=== PATIENT | male | born 1950 | race Caucasian/White ===

== ENCOUNTER 2018-01-07 09:31 | Inpatient (IN) ==
[2018-01-07] MEDS ORDERED: IOPAMIDOL 100 ML BOTTLE IV ONE (09:32)
[2018-01-07] MEDS ORDERED: ONDANSETRON 4 MG/2 ML VIAL IV ONE (09:54)
[2018-01-07] MEDS ORDERED: 0.9 % SODIUM CHLORIDE 1,000 ML IV ONE (09:54)
[2018-01-07 10:53] LABS: Basophils # (Auto) 0 K/mcL (0.0-0.3); Basophils % (Auto) 0.1 % (0.0-2.0); Eosinophils # (Auto) 0 K/mcL (0.0-0.7); Eosinophils % (Auto) 0.2 % (0.0-7.0); Granulocytes % (Auto) 85.7 % (38.0-78.0); Lymphocytes # (Auto) 1.2 K/mcL (1.5-4.8); Lymphocytes % (Auto) 8.9 % (15.5-49.0); Mean Cell Volume 94.1 fL (80.0-100.0); Mean Corpuscular HGB Conc 33.9 g/dL (31.0-36.0); Mean Corpuscular Hemoglobin 31.9 pg (26.0-34.0); Monocytes # (Auto) 0.7 K/mcL (0.1-0.9); Monocytes % (Auto) 5.1 % (1.0-12.0); Platelet Count 350 K/mcL (140-440); RBC 4.44 M/mcL (4.50-5.90); Red Cell Distribution Width 12.8 % (11.5-14.5)
--- NOTE | 2018-01-07 11:03 | XRay Report ---
CLINICAL INFORMATION: Cough COMPARISON: 05/08/2017 FINDINGS: Heart size, mediastinum and pulmonary vessels are normal. Lung volumes are elevated and there is minimal wall thickening the central bronchi suggesting bronchitis or asthma. This is unchanged. No infiltrates or effusions. Mild old compression fractures seen throughout the mid thoracic spine - stable. IMPRESSION: Mild chronic bronchitis or asthma. Interval Interpreted and Authenticated by: Vin Celis 01/07/18
[2018-01-07 11:17] LABS: ALT/SGPT 17 U/l (0-40); Albumin 4.1 gm/dL (3.2-5.2); Alkaline Phosphatase 127 U/L (39-117); Amylase 190 U/L (28-100); Blood Urea Nitrogen 12 mg/dl (8-23)
[2018-01-07 11:22] LABS: Lipase 1202 U/L (7-60)
[2018-01-07] MEDS ORDERED: PIPERACILLIN SODIUM/TAZOBACTAM 3.375 GM in DEXTROSE 5% IN WATER 50 ML IV ONE (11:52)
--- NOTE | 2018-01-07 11:53 | Emergency Department Note ---
Abdominal Pain HPI - General Chief Complaint: Abdominal Pain Stated Complaint: Right side/abd pain Time Seen by Provider: 01/07/18 09:45 Source: patient Mode of arrival: ambulatory Limitations: no limitations - History of Present Illness HPI Narrative: 67-year-old male with right-sided abdominal pain is severe and worsening over the last 5 days. He notes some nausea and decreased appetite fact the last 2 days he has not ate anything but an egg sandwich, 1 daily. He also notes decreased weight over the last several months and shortness of breath. Pallor is noted as well. He had a normal bowel movement this morning without melena or hematochezia. Occasional cough. He still has his gallbladder and appendix. He sees Dr. Barry for stage II chronic kidney disease. - Related Data Home Medications Medication Instructions Recorded Confirmed escitalopram 20 mg tablet 20 mg PO QDAY tab 11/07/15 11/05/17 hydrocodone 10 mg-acetaminophen PO .3-4 hours PRN 30 Days #300 tab 05/06/17 325 mg tablet spironolactone 25 mg tablet 25 mg PO QAM 11/05/17 11/05/17 Previous Rx's Medication Instructions Recorded amlodipine 10 mg tablet 10 mg PO QDAY #90 tab 07/24/17 atenolol 100 mg tablet 100 mg PO QDAY #90 tab 07/24/17 atorvastatin 40 mg tablet 40 mg PO QDAY #90 tab 07/24/17 gemfibrozil 600 mg tablet 600 mg PO BID #60 tab 12/16/17 Allergies Allergy/AdvReac Type Severity Reaction Status Date / Time No Known Drug Allergies Allergy Verified 11/05/17 13:20 Review of Systems All systems ED: reviewed and negative except as stated. Abdominal Pain PMH - Past Medical History Attestation: Yes: The following information was validated with the patient. Medical history: Reports: DM (Diet-controlled), hyperlipidemia, hypertension, renal disease, other (Chronic low back pain, gout) Surgical history ED: Reports: orthopedic, other (Knee), tonsillectomy - Social History Smoking status: Current every day smoker Alcohol use: Reports: None (Quit drinking 9 years ago) Drug use: Reports: none Physical Exam No acute distress. Normocephalic atraumatic. Conjunctive are clear sclerae white and nonicteric. No nasal discharge or congestion. Oropharynx is pink and moist. Poor dentition. Neck is supple without lymphadenopathy thyromegaly or carotid bruit. Heart is regular rate and rhythm he does have a 3 out of 6 midsystolic murmur. Lungs are clear to auscultation bilaterally without wheezes rales rhonchi or auditory distress. Abdomen is soft nondistended mildly tender on the entire right side moving towards the right flank even. There is no rigidity or guarding. No McBurney's point tenderness or peritoneal signs. No pedal edema. +2 radial pulse. Alert oriented Limitations: no limitations Course Vital Signs Temperature 98.2 F 01/07/18 09:31 Pulse Rate 120 H 01/07/18 09:31 Respiratory Rate 18 01/07/18 09:31 Blood Pressure 124/72 01/07/18 09:31 Pulse Oximetry (%) 97 01/07/18 09:31 Temperature 98.2 F 01/07/18 09:31 Pulse Rate 93 H 01/07/18 11:01 Respiratory Rate 18 01/07/18 09:31 Blood Pressure 118/75 01/07/18 11:01 Pulse Oximetry (%) 98 01/07/18 11:01 Abdominal Pain - Lab Data Lab results reviewed: Yes I reviewed the patient's lab results. Result diagrams: 01/07/18 10:07 01/07/18 10:07 Lab Results 01/07/18 01/07/18 01/07/18 Range/Units 10:07 10:07 10:07 WBC 13.1 H (4.5-11.0) K/mcL RBC 4.44 L (4.50-5.90) M/mcL Hgb 14.1 (13.5-16.5) g/dL Hct 41.7 (41.0-55.0) % POC Hct 43.0 (41.0-55.0) % MCV 94.1 (80.0-100.0) fL MCH 31.9 (26.0-34.0) pg MCHC 33.9 (31.0-36.0) g/dL RDW 12.8 (11.5-14.5) % Plt Count 350 (140-440) K/mcL MPV 7.5 (7.4-10.4) fL Gran % 85.7 H (38.0-78.0) % Lymph % (Auto) 8.9 L (15.5-49.0) % [place] % (Auto) 5.1 (1.0-12.0) % Eos % (Auto) 0.2 (0.0-7.0) % Baso % (Auto) 0.1 (0.0-2.0) % Gran # 11.2 H (1.8-8.0) K/mcL Lymph # (Auto) 1.2 L (1.5-4.8) K/mcL [place] # (Auto) 0.7 (0.1-0.9) K/mcL Eos # (Auto) 0 (0.0-0.7) K/mcL Baso # (Auto) 0 (0.0-0.3) K/mcL PT (11.9-14.5) sec INR (0.9-1.1) VBG Lactic Acid 0.9 (0.5-2.2) mmol/L POC Sodium 136 (133-145) mmol/L Sodium 136 (133-145) mmol/L POC Potassium 3.5 (3.3-5.1) mmol/L Potassium 3.6 (3.3-5.1) mmol/L POC Chloride 105 (96-108) mmol/L Chloride 97 (96-108) mmol/L Carbon Dioxide 17 L (22-30) mmol/L POC Total CO2 19 L (22-30) mmol/L Anion Gap 22.0 H (8-16) POC BUN 12 (8-23) mg/dl BUN 12 (8-23) mg/dl Creatinine 1.0 (0.7-1.2) mg/dl POC Creatinine 0.9 (0.7-1.2) mg/dl GFR Calculation 77 Glucose 143 H (70-105) mg/dL POC Glucose 143 H (70-105) mg/dL Calcium 9.4 (8.6-10.4) mg/dl POC WB Ioniz Calcium 1.05 L (1.16-1.32) mmol/L Total Bilirubin 0.3 (0.0-1.0) mg/dL AST 20 (0-37) U/l ALT 17 (0-40) U/l Alkaline Phosphatase 127 H (39-117) U/L Total Protein 8.1 (5.9-8.4) gm/dL Albumin 4.1 (3.2-5.2) gm/dL Globulin 4.0 H (2.2-3.7) gm/dL Albumin/Globulin Ratio 1.0 (1.0-2.3) Amylase 190 H (28-100) U/L Lipase 1202 H (7-60) U/L //18 Range/Units 10:07 WBC (4.5-11.0) K/mcL RBC (4.50-5.90) M/mcL Hgb (13.5-16.5) g/dL Hct (41.0-55.0) % POC Hct (41.0-55.0) % MCV (80.0-100.0) fL MCH (26.0-34.0) pg MCHC (31.0-36.0) g/dL RDW (11.5-14.5) % Plt Count (140-440) K/mcL MPV (7.4-10.4) fL Gran % (38.0-78.0) % Lymph % (Auto) (15.5-49.0) % [place] % (Auto) (1.0-12.0) % Eos % (Auto) (0.0-7.0) % Baso % (Auto) (0.0-2.0) % Gran # (1.8-8.0) K/mcL Lymph # (Auto) (1.5-4.8) K/mcL [place] # (Auto) (0.1-0.9) K/mcL Eos # (Auto) (0.0-0.7) K/mcL Baso # (Auto) (0.0-0.3) K/mcL PT 13.2 (11.9-14.5) sec INR 1.0 (0.9-1.1) VBG Lactic Acid (0.5-2.2) mmol/L POC Sodium (133-145) mmol/L Sodium (133-145) mmol/L POC Potassium (3.3-5.1) mmol/L Potassium (3.3-5.1) mmol/L POC Chloride (96-108) mmol/L Chloride (96-108) mmol/L Carbon Dioxide (22-30) mmol/L POC Total CO2 (22-30) mmol/L Anion Gap (8-16) POC BUN (8-23) mg/dl BUN (8-23) mg/dl Creatinine (0.7-1.2) mg/dl POC Creatinine (0.7-1.2) mg/dl GFR Calculation Glucose (70-105) mg/dL POC Glucose (70-105) mg/dL Calcium (8.6-10.4) mg/dl POC WB Ioniz Calcium (1.16-1.32) mmol/L Total Bilirubin (0.0-1.0) mg/dL AST (0-37) U/l ALT (0-40) U/l Alkaline Phosphatase (39-117) U/L Total Protein (5.9-8.4) gm/dL Albumin (3.2-5.2) gm/dL Globulin (2.2-3.7) gm/dL Albumin/Globulin Ratio (1.0-2.3) Amylase (28-100) U/L Lipase (7-60) U/L Urinalysis [id number] dipstick shows moderate blood otherwise normal with specific gravity 1.010. He sees Dr. Hess for hematuria - Radiology Data Radiology results reviewed: Yes I reviewed the patient's radiology results. CT scan of the abdomen pelvis shows gallbladder intact without stones. Also shows retrocecal appendix with surrounding inflammation and dilation. Pancreas looks inflamed as well although it is not clear if this is chronic or acute. That is the patient has appendicitis and pancreatitis Chest x-ray was done for cough. This does not show anything acute but could be compatible with bronchitis per radiology report Disposition Pt seen by CO DIRECTOR/PA only: No Clinical Impression: Acute appendicitis Qualifiers: Acute appendicitis type: unspecified acute appendicitis type Qualified Code(s) : K35.80 - Unspecified acute appendicitis Pancreatitis Qualifiers: Chronicity: acute Pancreatitis type: unspecified pancreatitis type Acute pancreatitis complication: no infection or necrosis Qualified Code(s): K85.90 - Acute pancreatitis without necrosis or infection, unspecified Summary: Patient is initially seen and evaluated and workup ordered with laboratory and CT scan. Treatment ordered with morphine IV fluids Zofran CT scan shows pancreatitis and appendicitis. Start Zosyn. Called Dr. Isidoro Parr, general surgeon, regarding the appendicitis. Advised me to order ultrasound of gallbladder as well. He excepted consult. Then discussed the case with Dr. Amelia Jaeger, hospitalist, she agreed to accept the patient for further care and evaluation of pancreatitis. Disposition: Xfer As Inpt ([facility]) Condition: Serious Referrals: Elizabeth Berger ARNP [Primary Care Provider] - Abril Barry MD [Physician] -
--- NOTE | 2018-01-07 11:54 | Cat Scan Report ---
CLINICAL INFORMATION: Right-sided abdominal pain. COMPARISON: Abdominal MRI: 12/16/2017 and 06/11/[address] from 01/05/2014. TECHNIQUE: Following enteric contrast, 80 cc of Isovue-300 were injected intravenously, and 60 seconds later, 0.625 mm helical slices were obtained from the mid heart through the subtrochanteric regions. Following reconstruction, 2.5 mm sagittal, coronal and axial reformatted images were processed and reviewed at bone, lung and soft tissue windows. Five minutes later, 0.625 mm helical slices were obtained from the mid heart through the kidneys and viewed at soft tissue windows.The exam was performed using radiation dose optimization techniques including, but not limited to, automated exposure control, adjustment of the mA and/or kV according to patient size and use of iterative reconstruction technique. FINDINGS: Lung bases show no abnormality - no effusion. Visualized heart is grossly normal. Images through the abdomen the liver, gallbladder and bile ducts, both adrenal glands, spleen and aorta to be unremarkable. Scattered simple cysts in both kidneys are unchanged. There are multiple (greater than 15) calcifications in the pancreatic head and neck ranging between 2 mm and 11 mm. There is moderate dilatation of [place] duct (8 mm) with smooth tapering proximally.. Mild inflammatory changes are noted within the pancreatic head parenchyma and the adjacent peripancreatic fat.. Small amount of fluid extends into the right anterior pararenal space and paracolic gutter. Pelvic images show prostate, seminal vesicles and urinary bladder to be normal. The appendix is retrocecal in location and has increase in diameter spanning 16 mm. In addition, the appendix wall appears mildly thickened. There is fluid in the periappendiceal fat which is contiguous with the fluid in the right anterior pararenal space. The stomach, small and large bowel are normal. Bone windows show no focal osseous abnormality. IMPRESSION: 1. Acute upon chronic pancreatitis confined to the pancreatic head. Multiple large calcifications in the pancreatic head and neck with moderate chronic dilatation of both [place] and [place] ducts with smooth tapering in the pancreatic head region. Minimal inflammatory changes noted in the pancreatic head parenchyma and peripancreatic fat and small amount of fluid extends into the anterior pararenal space. 2. The appendix is retrocecal in location and is quite high in position position actually located within the right anterior pararenal space. The wall of the appendix appears mildly thickened and the appendix is dilated. This could be sympathetic response to inflammatory fluid in the adjacent anterior pararenal space from pancreatitis. Alternatively, the patient may appendicitis as a second independent pathologic process. Interpreted and Authenticated by: Vin Celis 01/07/18
[2018-01-07] MEDS ORDERED: HYDROmorphone 2 MG/ML VIAL IV PRN (13:52)
[2018-01-07] MEDS ORDERED: ONDANSETRON 4 MG/2 ML VIAL IV PRN (13:52)
--- NOTE | 2018-01-07 13:53 | Ultrasound Report ---
CLINICAL INFORMATION: Right upper quadrant pain. Acute upon chronic pancreatitis COMPARISON: None. FINDINGS: The gallbladder is normal in size and wall thickness - no focal tenderness suggest cholecystitis. No stones identified in the gallbladder. Liver is unremarkable. Common bile duct normal caliber: 6 mm. Multiple calcifications pancreatic head again noted. The pancreatic duct is moderately dilated - 11 mm. There is a small amount of free fluid in the jessica hepatis IMPRESSION: Liver, gallbladder, intrahepatic and common bile ducts are unremarkable. Multiple calcifications in the pancreatic head compatible with chronic pancreatitis. Dilatation of the pancreatic duct which was also noted on CT Small amount of fluid in the jessica hepatis likely reflects acute upon chronic pancreatitis Interpreted and Authenticated by: Vin Celis 01/07/18
[2018-01-07] MEDS: 0.9 % SODIUM CHLORIDE 10 ML SYRINGE IV SCH ×2 (14:00→20:32)
[2018-01-07] MEDS: 0.9 % SODIUM CHLORIDE 1,000 ML IV SCH (14:21)
[2018-01-07] MEDS: NICOTINE 21 MG PATCH TOPICAL SCH (14:21)
[2018-01-07 14:26] LABS: HDL Cholesterol 27 mg/dl (>40); LDL Cholesterol,Calculated 66 mg/dl (SEE CHART)
--- NOTE | 2018-01-07 15:03 | Internal Med History&Physical ---
Medical - H&P: HPI Patient information: Note initiated : 01/07/18 at 3:01 pm Patient: Jalen Merlos a 67 y/o M admitted on 01/07/18 for Rt Sided Abd Pain. History of present illness: Mr. Merlos is a 67 year old M with underlying hypertension with elevated aldosterone, stage III CKD, renal osteodystrophy who describes sudden onset of right lower quadrant pain. He states he was in his usual state of health when five days ago he had sudden onset right lower quadrant pain. He rested and it seemed to improve the following day. Three days ago, he went to [place] to see his new great grandson and states that it was quite severe that day. Moving was difficult, and a hiccup or belch would "almost send him through the roof." He states that it was "one solid pain" that was steady although bending over seemed to help it. He notes there was no increase in pain going over bumps while driving here, however. He did not want to come to the ED as he was concerned about finances. Thought he could call Dr. Barry's office today and that she would see her. He notes that they "just told him to come to the ED." His daughter notes that he looked unwell and was "white as a sheet" three days ago. He describes chills intermittently, denies fevers. Yesterday he felt like something "popped" and then he reports the pain became diffuse and more throughout the abdomen. He describes nausea this AM, but no vomiting. States he hasn't eaten much due to loss of appetite. States he had one egg salad sandwich yesterday and one the day before. He notes he was afraid of getting heartburn because he felt that would make pain worse. ED COURSE: He was evaluated, including labs and imaging. Labs were significant for WBC elevated at 13.1, chemistries with normal electrolytes, BUN and creatinine of 12 and 1.0 respectively (GFR of 77), lipase of 1202, amylase of 190. CT scan was read by Dr. Celis and showed both evidence of acute on chronic pancreatitis and appendicitis. Review of systems: 1) Chronic Right knee pain, limits activity, s/p two surgeries which he reports "didn't help" 2) Cane to ambulate. No history of falls 3) Tinnitus x 2-3 weeks 4) Occasional vertigo 5) Feet feel like he's "walking on golf balls" x 30 years or so 6) Chronic back pain 7) Weight loss - he reports 30# over last year. Notes it started happening when Dr. Barry told him to follow a low fat diet and quit eating fast food. 8) Desires full code; does not have formal advanced directives or POA 9) Some depression - states it has gotten worse since his mother a few years ago. 10) On complete review, all others negative. Medical - H&P: [facility] Medical history: Chronic Kidney Disease Stage III per records Diabetes mellitus (Chronic)- diet controlled. Secondary hyperparathyroidism of renal origin (Chronic) Vitamin D deficiency (Chronic) Tobacco abuse Lumbosacral spondylosis (Acute) Peripheral neuropathy (Acute) Chronic knee pain Migraine Metabolic alkalosis (Acute 01/31/12) Hypokalemia (Acute) Hyposmolality and/or hyponatremia (Acute) Essential hypertension (Chronic) Elevated aldosterone Hyperlipidemia Hypertensive chronic kidney disease Gout Closed femur fracture (Acute) 1961 Elevated alkaline phosphatase level (Chronic) seen by GI Dysmetabolic syndrome X (Acute) Chest pain (Acute 09/11/12) Carpal tunnel syndrome on right (Acute) Alcohol abuse (Acute) Surgical History S/P tonsillectomy (Acute) At age 3 H/O arthroscopic knee surgery (Acute) Pertinent family history: Mother at age 84 of CHF. Previous history of TB Father at age 85, COPD and GI issues Social history: Lives with his dog. Recent of another dog. Sister is local and will take care of pet while he is in hospital. Smokes 4-5 cigars per day and then cigarettes when he is driving or visiting. 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 No other recreational drug use. Functional capacity: uses cane/walker Smoking status: Current every day smoker Have you smoked in the last 12 months: Yes Time spent discussing smoking cessation with patient: 3 to 10 minutes Drug use: none Alcohol use: sober Medical - H&P: Meds Home Medications Medication Instructions Recorded Confirmed Type escitalopram 20 mg tablet 20 mg PO QDAY tab 11/07/15 01/07/18 History hydrocodone 10 mg-acetaminophen 1 each PO .3-4 hours PRN 30 Days 05/06/17 History 325 mg tablet #300 tab amlodipine 10 mg tablet 10 mg PO QDAY #90 tab 07/24/17 01/07/18 Rx atenolol 100 mg tablet 100 mg PO QDAY #90 tab 07/24/17 01/07/18 Rx atorvastatin 40 mg tablet 40 mg PO QDAY #90 tab 07/24/17 01/07/18 Rx spironolactone 25 mg tablet 25 mg PO QAM 11/05/17 01/07/18 History gemfibrozil 600 mg tablet 600 mg PO BID #60 tab 12/16/17 01/07/18 Rx Allergies Allergy/AdvReac Type Severity Reaction Status Date / Time No Known Drug Allergies Allergy Verified 11/05/17 13:20 Medical - H&P: Exam - Constitutional Vitals: Temp Pulse Resp BP Pulse Ox 97.3 F 103 H 16 128/66 100 01/07/18 13:51 01/07/18 13:01 01/07/18 13:59 01/07/18 13:51 01/07/18 13:51 - Other Additional findings: GENERAL: Somewhat frail and thin appearing, older than stated age. Alert, oriented. Speech coherent, fluent, articulate. Thought content appropriate. Respirations unlabored. Cooperative with interview and exam. Daughter present with him in the room. HEENT: Atraumatic, normocephalic; EYES: pupils equal, full range of extraocular movements, no scleral icterus, no injected vessels. EARS: TM's pearly barger and translucent, EAC's without cerumen or trauma, auricles without lesions. OROPHARYNX: Edentulous maxilla; lower incisors blackened with significant decay. Membranes moist. NECK: Trachea midline, no adenopathy, no JVD, bilateral bruit vs radiation of systolic heart murmur, equal both sides and also heard in sternal notch. LUNGS: Clear to bases bilaterally, no wheezes, no crackles, no focally diminished breath sounds. COR: Regular rate and rhythm, 3/6 systolic murmur with radiation into the sternal notch and both carotids. ABDOMEN: Bowel sounds present. Non-distended. Tender from epigastrium to RLQ. No LUQ tenderness noted. No LLQ tenderness. No rebound noted, however. On percussion of CVA, did not produce increase in abdominal pain. Unable to adequately palpate for masses due to tenderness. BACK: No vertebral tenderness. No CVA tenderness. EXTREMITIES: No edema, pulses x4, warm. No palpable cords, no nail bed cyanosis. MUSCULOSKELETAL: Knees without effusion or swelling. No other joint swelling or long bone deformities. NEURO: Sensation decreased bilateral feet. Moved all extremities, bookkeeper receptionist strength equal, no tremor. PSYCHIATRIC: Normal affect, appropriate thought content. Medical - H&P: Reslt - Labs CBC & Chem 7: 01/07/18 10:07 01/07/18 10:07 Labs: Short CBC 01/07/18 Range/Units 10:07 WBC 13.1 H (4.5-11.0) K/mcL Hgb 14.1 (13.5-16.5) g/dL Hct 41.7 (41.0-55.0) % Plt Count 350 (140-440) K/mcL BMP 01/07/18 10:07 Sodium 136 Potassium 3.6 Chloride 97 Carbon Dioxide 17 L BUN 12 Creatinine 1.0 Glucose 143 H Calcium 9.4 Liver Function 01/07/18 Range/Units 10:07 Total Bilirubin 0.3 (0.0-1.0) mg/dL AST 20 (0-37) U/l ALT 17 (0-40) U/l Alkaline Phosphatase 127 H (39-117) U/L Albumin 4.1 (3.2-5.2) gm/dL - Imaging and Cardiology CT scan - abdomen Additional comments: As read by Dr. Celis: FINDINGS: Lung bases show no abnormality - no effusion. Visualized heart is grossly normal. Images through the abdomen the liver, gallbladder and bile ducts, both adrenal glands, spleen and aorta to be unremarkable. Scattered simple cysts in both kidneys are unchanged. There are multiple (greater than 15) calcifications in the pancreatic head and neck ranging between 2 mm and 11 mm. There is moderate dilatation of Santorini duct (8 mm) with smooth tapering proximally.. Mild inflammatory changes are noted within the pancreatic head parenchyma and the adjacent peripancreatic fat.. Small amount of fluid extends into the right anterior pararenal space and paracolic gutter. Pelvic images show prostate, seminal vesicles and urinary bladder to be normal. The appendix is retrocecal in location and has increase in diameter spanning 16 mm. In addition, the appendix wall appears mildly thickened. There is fluid in the periappendiceal fat which is contiguous with the fluid in the right anterior pararenal space. The stomach, small and large bowel are normal. Bone windows show no focal osseous abnormality. IMPRESSION: 1. Acute upon chronic pancreatitis confined to the pancreatic head. Multiple large calcifications in the pancreatic head and neck with moderate chronic dilatation of both Santorini and Wirsungs ducts with smooth tapering in the pancreatic head region. Minimal inflammatory changes noted in the pancreatic head parenchyma and peripancreatic fat and small amount of fluid extends into the anterior pararenal space. 2. The appendix is retrocecal in location and is quite high in position position actually located within the right anterior pararenal space. The wall of the appendix appears mildly thickened and the appendix is dilated. This could be sympathetic response to inflammatory fluid in the adjacent anterior pararenal space from pancreatitis. Alternatively, the patient may appendicitis as a second independent pathologic process. Medical - H&P: A/P - Narrative A/P Narrative: 1) Abdominal pain - may have concomitant appendicitis and pancreatitis. His lipase is only modestly elevated, and history is not particularly suggestive of pancreatitis. His gall bladder ultrasound is unremarkable, lipid panel unremarkable, glucose nearly normal. Some medications may influence development of pancreatitis or falsely elevate the lipase - either is possible. He does not use alcohol anymore, but clearly has evidence of previous pancreatic injury and may have acute worsening. He does note the pain may get worse with eating, which would be more consistent with a gallbladder or pancreatic history than appendicitis. White count mildly elevated, no fever noted. With either diagnosis, appropriate to be NPO, cover with pain medications, obtain surgical consult. Will plan on medicine admission with surgical consult. No antibiotics at present. 2) Systolic heart murmur: suspect possible aortic stenosis. No previous echocardiogram noted in records, and patient denies to me ever having one. Last visit with Dr. Barry does not document a murmur. There is no evidence of decompensation, will obtain an echocardiogram to evaluate degree of stenosis. 3) Chronic kidney disease - records indicate related to hypertensive nephropathy. Elevated aldosterone. On multiple medications with good control reflected in the ED. BUN and creatinine today are normal with an estimated GFR of 77; will continue good blood pressure control, will not need renal adjustments for medications. 4) History of diabetes, type 2 - diet controlled (in fact, patient denied to me that he even had diabetes, records suggest otherwise) Last hgb A1C on labs here was in 2016 and was 6.0; most recent noted in Dr. Barry's note is 6.8 Will check fingersticks, cover if necessary with insulin. 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 No worsening, no sign of peripheral ulcerations. 6) h/o alcohol abuse and dependence - sober x 10 years. I believe his compliance with sobriety, no concern with EtOH withdrawal syndrome. 7) Tobacco dependence - discussed need to quit. Suggested he will not be able to smoke in hospital and it is an ideal time to initiate cessation. Nicotine patch ordered. He notes Dr. Barry has told him to quit as well; I reviewed the reasons and spent approximately five minutes discussing cessation. He is interested in the patch, and notes he has a friend who reported to him it worked for her. Will order further cessation education. 8) History of renal osteodystrophy - ionized calcium on low side today, alk phos stable. I wonder if this process would affect pancreatic calcification similar to calcification of vasculature. Plan: Inpatient admission NPO IVF - NS at 100 Parenteral pain control Antihypertensives with sips of water Surgery consult Daily labs Lipid panel added to blood drawn earlier Hold gemfibrizol and statin for now Nicotine patch Case management referral Echocardiogram Fingersticks bid - will cover with sliding scale only if >200 Full code SCD's for VTE prophylaxis IV famotidine for PUD prophylaxis IV zofran prn Other problems addressed as they arise. Medical - H&P: Qual - Stroke Symptom Onset Unknown: No - VTE Deep Vein Thrombosis/Pulmonary Embolism Present on Admission: No
--- NOTE | 2018-01-07 15:17 | General Surgery Consult Note ---
History of Present Illness Patient information: Note initiated : 01/07/18 at 3:14 pm Service Date, if different from initiated Date: [] Patient: Jalen Merlos 67 y/o M admitted on 01/07/18 for Rt Sided Abd Pain. Chief Complaint: [] Reason for consult: abdominal pain Requesting physician: Amelia Jaeger History of present illness: 67-year-old male admitted for evaluation of abdominal pain with probable appendicitis. The patient states that on evening he developed pain in his right flank. This pain increased in severity. It was made worse whenever he would drink water. He states that he felt better on Saturday but then his pain became worse and he developed nausea but no vomiting. He was having pain with each breath. Most of the pain was subcostal in the high in the right upper quadrant. He also had CVA tenderness. Because of continued symptoms he was seen in the emergency room where was noted that on CT exam he had a dilated thickened appendix with periappendiceal fluid. The appendix is in the retrocecal position high in the right upper quadrant. He also has chronic pancreatitis with dilated pancreatic ducts. His amylase and lipase were mildly elevated. Based on history and radiologic findings is felt that the patient has appendicitis in the retrocecal position and will need to have laparoscopy with appendectomy. He is counseled for this and will undergo the procedure tomorrow morning. Review of Systems - Constitutional anorexia, weight loss (30 pound weight loss 1 year) - EENT Nose, mouth and throat: dry mouth, headache(s) - Cardiovascular chest pain ( chest pain with deep inspiration aggravating pain in the right upper quadrant), dyspnea on exertion, radiating pain, no chest pain with activity - Respiratory dyspnea on exertion, pain on inspirtation, no wheezing, no snoring, no stridor, no chest congestion - Gastrointestinal abdominal pain, cramping, nausea, no heartburn, no loose stools - Musculoskeletal no abnormal gait, no numbness, no stiffness - Integumentary no change in pigmentation, no new lesions, no pruritus, no rash - Neurological abnormal hearing, tremor(s), no headache(s) - Psychiatric anxiety, depression - Endocrine no excessive sweating, no fatigue, no heat intolerance - Hematologic/Lymphatic lymphadenopathy, no easy bleeding, no easy bruising - Allergic/Immunologic no tongue swelling, no throat swelling, no uticaria, no wheezing, no lip swelling Past History Past medical history: Chronic kidney disease Diabetes mellitus Hypertension Low back pain Past surgical history: Left knee arthroscopy Past family history: Coronary artery disease Diabetes mellitus Chronic obstructive lung disease Past social history: Smokes 1 pack of cigarettes per day Long history of alcohol abuse but stopped 9 years ago History of drug abuse Medications and Allergies Home Medications Medication Instructions Recorded Confirmed Type escitalopram 20 mg tablet 20 mg PO QDAY tab 11/07/15 01/07/18 History hydrocodone 10 mg-acetaminophen 1 each PO .3-4 hours PRN 30 Days 05/06/17 History 325 mg tablet #300 tab amlodipine 10 mg tablet 10 mg PO QDAY #90 tab 07/24/17 01/07/18 Rx atenolol 100 mg tablet 100 mg PO QDAY #90 tab 07/24/17 01/07/18 Rx atorvastatin 40 mg tablet 40 mg PO QDAY #90 tab 07/24/17 01/07/18 Rx spironolactone 25 mg tablet 25 mg PO QAM 11/05/17 01/07/18 History gemfibrozil 600 mg tablet 600 mg PO BID #60 tab 12/16/17 01/07/18 Rx Allergies Allergy/AdvReac Type Severity Reaction Status Date / Time No Known Drug Allergies Allergy Verified 11/05/17 13:20 Exam Temp Pulse Resp BP Pulse Ox 97.3 F 103 H 16 128/66 100 01/07/18 13:51 01/07/18 13:01 01/07/18 13:59 01/07/18 13:51 01/07/18 13:51 - General physical appearance well developed, well nourished, no distress - Eyes PERRL, normal ocular movement - ENT normal pinna, normal nares, normal mucosa, no hearing loss, no congestion - Head Head exam IM: Present: atraumatic, normal inspection, normocephalic - Neck no masses, no bruits, trachea midline, no lymphadectomy, no venous distension - Cardiovascular Cardiovascular exam IM: Present: normal rate and rhythm, RRR, +S1, +S2. Absent : JVD, tachycardia - Respiratory normal expansion, normal respiratory effort, clear to percussion, clear to auscultation - Abdomen Abdomen: Present: soft, tender (tender right flank extending to right cva region ), bowel sounds Hernia: Present: none - Genitourinary Present: normal penis with no external lesions - Integumentary Present: no rash, no growths, no abnormal pigmentation - Neurologic Present: normal coordination, normal sensation - Musculoskeletal Present: normal gait, normal posture - Psychiatric Present: oriented to time, oriented to person, oriented to place, speech is normal, memory intact Results - Labs 01/08/18 03:50 01/08/18 03:50 Abnormal lab results 01/07/18 01/07/18 01/07/18 Range/Units 10:07 10:07 10:07 WBC 13.1 H (4.5-11.0) K/mcL RBC 4.44 L (4.50-5.90) M/mcL Gran % 85.7 H (38.0-78.0) % Lymph % (Auto) 8.9 L (15.5-49.0) % Gran # 11.2 H (1.8-8.0) K/mcL Lymph # (Auto) 1.2 L (1.5-4.8) K/mcL Carbon Dioxide 17 L (22-30) mmol/L POC Total CO2 19 L (22-30) mmol/L Anion Gap 22.0 H (8-16) Glucose 143 H (70-105) mg/dL POC Glucose 143 H (70-105) mg/dL POC WB Ioniz Calcium 1.05 L (1.16-1.32) mmol/L Alkaline Phosphatase 127 H (39-117) U/L Globulin 4.0 H (2.2-3.7) gm/dL Triglycerides 156 H (<150) mg/dl HDL Cholesterol 27 L (>40) mg/dl Amylase 190 H (28-100) U/L Lipase 1202 H (7-60) U/L Diabetes panel 01/07/18 01/07/18 Range/Units 10:07 10:07 Sodium 136 (133-145) mmol/L Potassium 3.6 (3.3-5.1) mmol/L Chloride 97 (96-108) mmol/L Carbon Dioxide 17 L (22-30) mmol/L BUN 12 (8-23) mg/dl Creatinine 1.0 (0.7-1.2) mg/dl Glucose 143 H (70-105) mg/dL Calcium 9.4 (8.6-10.4) mg/dl AST 20 (0-37) U/l ALT 17 (0-40) U/l Alkaline Phosphatase 127 H (39-117) U/L Total Protein 8.1 (5.9-8.4) gm/dL Albumin 4.1 (3.2-5.2) gm/dL Triglycerides 156 H (<150) mg/dl HDL Cholesterol 27 L (>40) mg/dl Calcium panel 01/07/18 Range/Units 10:07 Calcium 9.4 (8.6-10.4) mg/dl Albumin 4.1 (3.2-5.2) gm/dL Pituitary panel 01/07/18 Range/Units 10:07 Sodium 136 (133-145) mmol/L Potassium 3.6 (3.3-5.1) mmol/L Chloride 97 (96-108) mmol/L Carbon Dioxide 17 L (22-30) mmol/L BUN 12 (8-23) mg/dl Creatinine 1.0 (0.7-1.2) mg/dl Glucose 143 H (70-105) mg/dL Calcium 9.4 (8.6-10.4) mg/dl Adrenal panel 01/07/18 Range/Units 10:07 Sodium 136 (133-145) mmol/L Potassium 3.6 (3.3-5.1) mmol/L Chloride 97 (96-108) mmol/L Carbon Dioxide 17 L (22-30) mmol/L BUN 12 (8-23) mg/dl Creatinine 1.0 (0.7-1.2) mg/dl Glucose 143 H (70-105) mg/dL Calcium 9.4 (8.6-10.4) mg/dl Total Bilirubin 0.3 (0.0-1.0) mg/dL AST 20 (0-37) U/l ALT 17 (0-40) U/l Alkaline Phosphatase 127 H (39-117) U/L Total Protein 8.1 (5.9-8.4) gm/dL Albumin 4.1 (3.2-5.2) gm/dL All other labs normal. Assessment and Plan (1) Acute appendicitis antibiotics tonight schedule for surgery in a.m. Status: Acute Qualifiers: Acute appendicitis type: unspecified acute appendicitis type Qualified Code (s): K35.80 - Unspecified acute appendicitis (2) Pancreatitis check serial levels daily; not a contraindication to surgery Status: Acute Qualifiers: Chronicity: acute Pancreatitis type: unspecified pancreatitis type Acute pancreatitis complication: no infection or necrosis Qualified Code(s): K85.90 - Acute pancreatitis without necrosis or infection, unspecified (3) Diabetes mellitus Status: Chronic Comment: watches his diet most recent HbA1c was 6.8 (4) Chronic kidney disease, stage III (moderate) Status: Chronic
[2018-01-07] MEDS: PIPERACILLIN SODIUM/TAZOBACTAM 4.5 GM in DEXTROSE 5% IN WATER 50 ML IV SCH (20:12)
[2018-01-07] MEDS: FAMOTIDINE/PF 20 MG/2 ML VIAL IV SCH (20:31)
[2018-01-08] MEDS: 0.9 % SODIUM CHLORIDE 1,000 ML IV SCH ×4 (00:21→19:17)
[2018-01-08] MEDS: PIPERACILLIN SODIUM/TAZOBACTAM 4.5 GM in DEXTROSE 5% IN WATER 50 ML IV SCH ×4 (00:21→21:28)
[2018-01-08 05:29] LABS: Basophils # (Auto) 0 K/mcL (0.0-0.3); Basophils % (Auto) 0.1 % (0.0-2.0); Eosinophils # (Auto) 0.3 K/mcL (0.0-0.7); Eosinophils % (Auto) 2.9 % (0.0-7.0); Granulocytes % (Auto) 75.3 % (38.0-78.0); Lymphocytes # (Auto) 1.4 K/mcL (1.5-4.8); Mean Cell Volume 94.2 fL (80.0-100.0); Mean Corpuscular HGB Conc 34.7 g/dL (31.0-36.0); Mean Corpuscular Hemoglobin 32.7 pg (26.0-34.0); Monocytes # (Auto) 0.6 K/mcL (0.1-0.9); Monocytes % (Auto) 6.7 % (1.0-12.0); Platelet Count 334 K/mcL (140-440); RBC 3.81 M/mcL (4.50-5.90); Red Cell Distribution Width 13.1 % (11.5-14.5)
[2018-01-08 06:00] LABS: ALT/SGPT 13 U/l (0-40); Albumin 3.4 gm/dL (3.2-5.2); Albumin/Globulin Ratio 1.1 (1.0-2.3); Alkaline Phosphatase 99 U/L (39-117); Bilirubin,Direct < 0.2 mg/dL (0.0-0.3); Blood Urea Nitrogen 6 mg/dl (8-23); Gamma Glutamyl Transpeptidase 38 U/L (8-61); Lipase 421 U/L (7-60); Uric Acid 3.1 mg/dL (2.5-8.0)
[2018-01-08] MEDS: 0.9 % SODIUM CHLORIDE 10 ML SYRINGE IV SCH (06:11)
[2018-01-08] MEDS ORDERED: POTASSIUM PHOSPHATE 40 MEQ in DEXTROSE 5% IN WATER 500 ML IV ONE ×2 (06:34→07:27)
[2018-01-08 07:51] LABS: Appearance,Urine CLEAR; Bacteria,Urine 0 /hpf (0); Bilirubin,Urine NEG (NEG); Color,Urine STRAW; Glucose,Urine (UA) NEGATIVE (NEG); Leukocyte Esterase,Urine NEG /uL (NEG); Mucus,Urine FEW /hpf (0); Protein,Urine NEG (NEG); Specific Gravity,Urine 1.017 (1.000-1.035); Urine Blood 0.03 mg/dL (<0.03); Urine RBC 5 /hpf (0-1); Urine Squamous Epithelial Cell 0 /hpf (0-4); Urine WBC < 1 /hpf (0-4); Urobilinogen,Urine NEG (NEG)
[2018-01-08] MEDS ORDERED: ATENOLOL 50 MG TABLET PO SCH (09:00)
[2018-01-08] MEDS ORDERED: PROPOFOL 200 MG/20 ML VIAL IV ONE (09:00)
[2018-01-08] MEDS ORDERED: SUCCINYLCHOLINE 20 MG/ML ML IV ONE (09:00)
[2018-01-08] MEDS ORDERED: LIDOCAINE HCL/PF 100 MG/5 ML SYRINGE IV ONE (09:00)
[2018-01-08] MEDS ORDERED: ESCITALOPRAM 20 MG TABLET PO SCH (09:00)
[2018-01-08] MEDS ORDERED: DEXAMETHASONE 10 MG/ML VIAL IV ONE (09:00)
[2018-01-08] MEDS ORDERED: ePHEDrine 50 MG/ML AMPUL IV ONE (09:00)
[2018-01-08] MEDS ORDERED: SPIRONOLACTONE 25 MG TABLET PO SCH (09:00)
[2018-01-08] MEDS ORDERED: ONDANSETRON 4 MG/2 ML VIAL IV ONE (09:00)
[2018-01-08] MEDS ORDERED: MIDAZOLAM 5 MG/5 ML VIAL IV ONE (09:00)
[2018-01-08] MEDS ORDERED: NEOSTIGMINE 1 MG/ML VIAL IV ONE (09:00)
[2018-01-08] MEDS ORDERED: ROCURONIUM 10 MG/ML ML IV ONE (09:00)
[2018-01-08] MEDS ORDERED: GLYCOPYRROLATE 0.2 MG/ML VIAL IV ONE (09:00)
[2018-01-08] MEDS ORDERED: fentaNYL 100 MCG/2 ML VIAL IV ONE ×2 (09:00→12:38)
[2018-01-08] MEDS ORDERED: amLODIPine 10 MG TABLET PO SCH (09:00)
[2018-01-08] MEDS ORDERED: LACTATED RINGERS 250 ML IV PRN (09:17)
[2018-01-08] MEDS ORDERED: MEPERIDINE 25 MG/ML SYRINGE IV PRN (09:17)
[2018-01-08] MEDS ORDERED: IPRATROPIUM/ALBUTEROL 3 ML AMPUL.NEB NEB PRN (09:17)
[2018-01-08] MEDS ORDERED: ACETAMINOPHEN 1,000 MG/100 ML BOTTLE IV ONE (09:17)
[2018-01-08] MEDS ORDERED: PROMETHAZINE 25 MG/ML VIAL IV PRN (09:17)
[2018-01-08] MEDS ORDERED: FLUMAZENIL 0.1 MG/ML ML IV PRN (09:17)
[2018-01-08] MEDS ORDERED: ONDANSETRON 4 MG/2 ML VIAL IV PRN ×2 (09:17→11:11)
[2018-01-08] MEDS ORDERED: diphenhydrAMINE 50 MG/ML VIAL IV PRN (09:17)
[2018-01-08] MEDS ORDERED: NALOXONE HCL 0.4 MG/ML VIAL IV PRN (09:17)
[2018-01-08] MEDS: FAMOTIDINE/PF 20 MG/2 ML VIAL IV SCH ×2 (09:19→21:27)
[2018-01-08] MEDS ORDERED: LACTATED RINGERS 1,000 ML IV SCH (09:30)
--- NOTE | 2018-01-08 10:13 | Brief Operative Note ---
Date of procedure: 01/08/18 Pre-op diagnosis: acute appendicitis Post-op diagnosis: other (retrocecal acute appendicitis) Procedure: laparoscopic appendectomy Grafts/Implants: No (zahra x1) Anesthesia: GETA Findings: retrocecal appendix with acute inflammation and dense adhesion to posterior wall of ascending colon extending to hepatic flexure Complications: none Surgeon: Pauline Parr Estimated blood loss (cc): 25 Specimens Removed/Pathology: other (appendix) Condition: stable Disposition: PACU
[2018-01-08] MEDS: fentaNYL 100 MCG/2 ML VIAL IV PRN ×3 (10:32→10:50)
--- NOTE | 2018-01-08 12:31 | Operative Note ---
DATE OF OPERATION: 01/08/2018 PREOPERATIVE DIAGNOSIS: Acute appendicitis. POSTOPERATIVE DIAGNOSIS: Retrocecal acute appendicitis. PROCEDURE: Laparoscopic appendectomy. SURGEON: Pauline Parr MD FINDINGS: Retrocecal appendix with acute inflammation and dense adhesions to the posterior wall of the ascending colon, extending to the hepatic flexure. DESCRIPTION OF PROCEDURE: Under general anesthesia, the patient's abdomen was prepped and draped in a sterile field. A time-out procedure was carried out as per protocol. A supraumbilical midline incision was made and Veress needle was inserted uneventfully. The abdomen was insufflated with 2.5 liters of CO2. A 12 mm port was placed. Laparoscope was placed. The inflammation was seen up along the ascending colon along the right border. A suprapubic midline incision was made longterm between the symphysis and the umbilicus. A 12 mm port was placed in the left lower quadrant close to the midline. The patient's head was elevated and he was rotated to the left. The base of the cecum was explored and the appendix was noted. A window was made in the mesoappendix and appendiceal base was transected using GI stapler. The mesocolon was then dissected and serially clipped and divided traveling up the posterolateral wall of the ascending colon. At the hepatic flexure there was a dense inflammation in the tip and the appendix had to be dissected away from the wall of the colon. The tissue was clamped close to the appendix and transected. This continued out to the tip. Copious irrigation was carried out. The appendix was placed in an EndoCatch device and retrieved. A 10 flat Juan Pablo drain was placed along the lateral gutter extending up to the hepatic flexure. It was brought out through the more lateral incision. There was no active bleeding. CO2 was allowed to escape from the abdomen, and the ports were removed. Fascia of the umbilicus was closed with 0 Vicryl. Skin incisions were closed with gloria. The patient tolerated the procedure well. The drain was secured with 2-0 nylon. Tegaderm dressings were placed. The patient was awakened, transferred to a bed and taken to the postanesthetic care unit in stable, satisfactory condition. LCS:andrae Job ID: [id number] Doc ID: [id number] Pauline Parr M.D.
--- NOTE | 2018-01-08 13:09 | Internal Med Progress Note ---
Medical - PN: Subj Patient information: Note initiated : 01/08/18 at 1:04 pm Patient: Jalen Merlos 67 y/o M admitted on 01/07/18 for Rt Sided Abd Pain/ Pancreatitis, Appendicitis. Interval history: When patient was seen this AM, he reported improved pain, although he was still uncomfortable. No vomiting, no sweats, chills, or fevers. He has not had any desire for cigarettes except right when he woke this AM. Feels like the patch is effective. Wants to know if he could "have a few" when he leaves. Surgery planned for mid-morning. I reviewed Dr. 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 After returning to floor from PACU, patient did complain of more pain. I gave a one time dose of IV Fentanyl. Will plan on discussing time frame for d/c of antibiotics with Dr. Parr. No respiratory issues noted. - Constitutional Vitals: Vital Signs Temp Pulse Resp BP Pulse Ox 97.5 F 74 16 114/59 98 01/08/18 10:57 01/08/18 10:57 01/08/18 10:57 01/08/18 10:57 01/08/18 11:12 Period Temp Pulse Resp BP Sys/Longo Pulse Ox Last 24 Hr 97.3 F-98.8 F 73-109 16-24 97-158/51-81 96-100 Intake and Output 01/07/18 01/08/18 01/08/18 21:59 05:59 13:59 Intake Total 240 / 240 1300 / 1300 1700 / 1700 Output Total 395 / 395 875 / 875 100 / 100 Balance -155 / -155 425 / 425 1600 / 1600 Weight 140 lb Intake & Output: Intake & Output 01/07/18 01/08/18 01/08/18 21:59 05:59 13:59 Intake Total 240 / 240 1300 / 1300 1700 / 1700 Output Total 395 / 395 875 / 875 100 / 100 Balance -155 / -155 425 / 425 1600 / 1600 Weight 140 lb Intake: IV 50 / 50 1050 / 1050 1700 / 1700 Sodium Chloride 0.9% 1,000 ml @ 1000 / 1000 100 mls/hr IV .Q10H ON LICENSE OF [facility] Rx#: [id number] Zosyn 4.5 gm In Dextrose 5% in 50 / 50 50 / 50 Water 50 ml @ 100 mls/hr IV Q8H ON LICENSE OF [facility] Rx#:[id number] Oral 70 / 70 250 / 250 Other 120 / 120 Output: Drainage 45 / 45 Right Lower INO Drain 45 / 45 Void Amount 350 / 350 875 / 875 Estimated Blood Loss 100 / 100 Other: Meal snack/jello Feeding Ability Independent - Additional findings Additional findings: GENERAL: Appears fairly comfortable when first seen this morning; after surgery , eating ice, comfortable. Alert, oriented. Speech coherent, fluent, articulate. Thought content appropriate. Respirations unlabored. HEENT: OROPHARYNX: Edentulous maxilla; lower incisors blackened with significant decay. Membranes moist. NECK: Trachea midline, no adenopathy, no JVD, bilateral bruit vs radiation of systolic heart murmur, equal both sides and also heard in sternal notch. LUNGS: Clear to bases bilaterally, no wheezes, no crackles, no focally diminished breath sounds. COR: Regular rate and rhythm, 3/6 systolic murmur with radiation into the sternal notch and both carotids. ABDOMEN: Bowel sounds sparse (seen pre-op). Non-distended. Improved tenderness, isolated only to right lower quadrant. No guarding or rebound. EXTREMITIES: No edema, pulses x4, warm. No palpable cords, no nail bed cyanosis. Medical - PN: Obj Da - Labs CBC & Chem 7: 01/08/18 03:50 01/08/18 03:50 Labs: Abnormal Lab Results 01/08/18 01/08/18 01/08/18 05:40 03:50 03:50 WBC RBC 3.81 L Hgb 12.4 L Hct 35.9 L MPV 7.3 L Gran % Lymph % (Auto) 15.0 L Gran # Lymph # (Auto) 1.4 L APTT 42 H Potassium Carbon Dioxide POC Total CO2 Anion Gap BUN Glucose POC Glucose Calcium POC WB Ioniz Calcium Phosphorus Alkaline Phosphatase Globulin Triglycerides HDL Cholesterol Amylase Lipase Urine Ketones 20 A Urine Occult Blood 0.03 A Urine RBC 5 H 01/08/18 01/07/18 01/07/18 03:50 10:07 10:07 WBC RBC Hgb Hct MPV Gran % Lymph % (Auto) Gran # Lymph # (Auto) APTT Potassium 3.2 L Carbon Dioxide 18 L 17 L POC Total CO2 19 L Anion Gap 18.0 H 22.0 H BUN 6 L Glucose 112 H 143 H POC Glucose 143 H Calcium 8.5 L POC WB Ioniz Calcium 1.05 L Phosphorus 2.6 L Alkaline Phosphatase 127 H Globulin 4.0 H Triglycerides 156 H HDL Cholesterol 27 L Amylase 190 H Lipase 421 H 1202 H Urine Ketones Urine Occult Blood Urine RBC 01/07/18 10:07 WBC 13.1 H RBC 4.44 L Hgb Hct MPV Gran % 85.7 H Lymph % (Auto) 8.9 L Gran # 11.2 H Lymph # (Auto) 1.2 L APTT Potassium Carbon Dioxide POC Total CO2 Anion Gap BUN Glucose POC Glucose Calcium POC WB Ioniz Calcium Phosphorus Alkaline Phosphatase Globulin Triglycerides HDL Cholesterol Amylase Lipase Urine Ketones Urine Occult Blood Urine RBC Meds: Medications Amlodipine Besylate (Norvasc) 10 mg PO QDAY [facility] Atenolol (Tenormin) 100 mg PO DAILY [facility] Escitalopram Oxalate (Lexapro) 20 mg PO QDAY [facility] Famotidine (Pepcid) 20 mg IV Q12 [facility] Sodium Chloride (Sodium Chloride 0.9%) 1,000 mls @ 100 mls/hr IV .Q10H [facility] Piperacillin Sod/Tazobactam (Sod 4.5 gm/ Dextrose) 50 mls @ 100 mls/hr IV Q8H [facility] Acetaminophen (Ofirmev) 1,000 mg in 100 mls @ 200 mls/hr IV Q6HP PRN PRN Reason: Pain Morphine Sulfate (Morphine) 2 mg IV Q2HP PRN PRN Reason: PAIN LEVEL > 6 Morphine Sulfate (Morphine) 5 mg IV Q4HP PRN PRN Reason: Pain Last Admin: 01/08/18 12:59 Dose: 5 mg Nicotine (Nicoderm) 21 mg TOPICAL DAILY@1000 [facility] Ondansetron HCl (Zofran) 4 mg IV Q6HP PRN PRN Reason: Nausea And Vomiting Spironolactone (Aldactone) 25 mg PO QAM ON [facility] OF [facility] Medical - PN: A/P - Time Spent With Patient Total time spent is greater than 50% in coordination of care (as documented) at patient's floor/unit and/or counseling patient: 15 - 24 minutes - Narrative A/P Narrative: 1) Appendicitis - lap appy planned by Dr. Parr today. On Zosyn, whether he needs to stay on it will depend on surgical findings - if no diffuse peritonitis , suspect could discontinue. Will discuss with Dr. Parr. 2) Elevated lipase - doubt significant primary pancreatitis. Has come down to 400 today, and exam is unremarkable except for RLQ tenderness. Will recheck lipase in the AM. 3) Hypokalemia - had been on IVF with NS overnight. Will replace with KPhos since phosphorus also low. Recheck in AM 4) Tobacco dependence - happy with patch and much more interested in cessation. On second visit, discussed with daughter re cleaning his apartment for smoking odor - upholstery, drapes, clean sheets, while he is in the hospital. 5) Disposition - anticipate return home, likely tomorrow, perhaps later today. Still requiring significant IV pain medications at present. Medical - PN: Qual - Stroke Symptom Onset Unknown: No - VTE Deep Vein Thrombosis/Pulmonary Embolism Present on Admission: No
[2018-01-08] MEDS: ACETAMINOPHEN 1,000 MG/100 ML BOTTLE IV PRN (17:49)
[2018-01-08] MEDS: NICOTINE 21 MG PATCH TOPICAL SCH (19:20)
[2018-01-08] MEDS ORDERED: ALPRAZolam 0.5 MG TABLET PO PRN (23:02)
[2018-01-08] MEDS ORDERED: ALPRAZolam 0.5 MG TABLET ONE (23:06)
[2018-01-09 05:00] LABS: Basophils # (Auto) 0 K/mcL (0.0-0.3); Basophils % (Auto) 0 % (0.0-2.0); Eosinophils # (Auto) 0.1 K/mcL (0.0-0.7); Eosinophils % (Auto) 0.7 % (0.0-7.0); Granulocytes % (Auto) 86.6 % (38.0-78.0); Lymphocytes # (Auto) 1.2 K/mcL (1.5-4.8); Mean Corpuscular HGB Conc 33.7 g/dL (31.0-36.0); Monocytes # (Auto) 0.7 K/mcL (0.1-0.9); Monocytes % (Auto) 4.7 % (1.0-12.0); Platelet Count 335 K/mcL (140-440); RBC 3.67 M/mcL (4.50-5.90); Red Cell Distribution Width 12.9 % (11.5-14.5)
[2018-01-09] MEDS: 0.9 % SODIUM CHLORIDE 1,000 ML IV SCH ×3 (05:24→18:00)
[2018-01-09 05:36] LABS: ALT/SGPT 14 U/l (0-40); Albumin 3.5 gm/dL (3.2-5.2); Albumin/Globulin Ratio 1.2 (1.0-2.3); Alkaline Phosphatase 88 U/L (39-117); Bilirubin,Direct < 0.2 mg/dL (0.0-0.3); Blood Urea Nitrogen 5 mg/dl (8-23); Gamma Glutamyl Transpeptidase 38 U/L (8-61); Lipase 51 U/L (7-60); Uric Acid 2.4 mg/dL (2.5-8.0)
[2018-01-09] MEDS: PIPERACILLIN SODIUM/TAZOBACTAM 4.5 GM in DEXTROSE 5% IN WATER 50 ML IV SCH ×3 (05:57→21:56)
[2018-01-09] MEDS: ACETAMINOPHEN 1,000 MG/100 ML BOTTLE IV PRN ×3 (08:05→23:03)
[2018-01-09] MEDS: FAMOTIDINE/PF 20 MG/2 ML VIAL IV SCH ×2 (10:04→21:56)
[2018-01-09] MEDS: ESCITALOPRAM 20 MG TABLET PO SCH (10:07)
[2018-01-09] MEDS: amLODIPine 10 MG TABLET PO SCH (10:08)
[2018-01-09] MEDS: ATENOLOL 50 MG TABLET PO SCH (10:08)
[2018-01-09] MEDS: SPIRONOLACTONE 25 MG TABLET PO SCH (10:08)
[2018-01-09] MEDS: NICOTINE 21 MG PATCH TOPICAL SCH (10:10)
--- NOTE | 2018-01-09 10:50 | Internal Med Progress Note ---
Medical - PN: Subj Patient information: Note initiated : 01/09/18 at 10:48 am Service Date, if different from initiated Date: [] Patient: Jalen Merlos 67 y/o M admitted on 01/07/18 for Rt Sided Abd Pain/ Pancreatitis, Appendicitis. Chief Complaint: [] Interval history: Reports increase in postoperative abdominal pain. Denies fevers or chills, not eating much due to pain. No SOB, but states chronic nasal stuffiness. Missing cigarettes, thinks patch still helping. - Constitutional Vitals: Vital Signs Temp Pulse Resp BP Pulse Ox 98.0 F 83 22 120/66 94 01/09/18 08:05 01/09/18 07:31 01/09/18 07:31 01/09/18 07:31 01/09/18 07:31 Period Temp Pulse Resp BP Sys/Longo Pulse Ox Last 24 Hr 97.5 F-98.6 F 74-90 16-24 106-137/59-77 93-100 Intake and Output 01/08/18 01/09/18 01/09/18 21:59 05:59 13:59 Intake Total 709.0909 / 709.0909 1000 / 1000 150 / 150 Output Total 760 / 760 990 / 990 400 / 400 Balance -50.9091 / -50.9091 10 / 10 -250 / -250 Weight 148 lb Intake & Output: Intake & Output 01/08/18 01/09/18 01/09/18 21:59 05:59 13:59 Intake Total 709.0909 / 709.0909 1000 / 1000 150 / 150 Output Total 760 / 760 990 / 990 400 / 400 Balance -50.9091 / -50.9091 10 -250 / -250 Weight 148 lb Intake: IV 709.0909 / 709.0909 1000 / 1000 150 / 150 Sodium Chloride 0.9% 1,000 ml @ 1000 / 1000 100 mls/hr IV .Q10H [facility] Rx#: [id number] OFIRMEV 1,000 mg In 100 ml @ 100 / 100 100 / 100 200 mls/hr IV Q6HP PRN Rx#: [id number] Zosyn 4.5 gm In Dextrose 5% in 100 / 100 50 / 50 Water 50 ml @ 100 mls/hr IV Q8H [facility] Rx#:[id number] Output: Drainage 40 / 40 Right Lower INO Drain 40 / 40 Void Amount 760 / 760 950 / 950 400 / 400 Exam: GENERAL: Alert, oriented. Speech coherent, fluent, articulate. Thought content appropriate. Respirations unlabored. More fidgety than yesterday. HEENT: Membranes moist. LUNGS: Clear to bases bilaterally, no wheezes, no crackles, no focally diminished breath sounds. COR: Regular rate and rhythm, 3/6 systolic murmur with radiation into the sternal notch and both carotids. ABDOMEN: Rounded, gloria in small umbilical incision, drain in place with small amt. serosanginous drainage. Quiescent BS, diffusely tender, mild distention. EXTREMITIES: No edema, pulses x4, warm. No palpable cords, no nail bed cyanosis. Medical - PN: Obj Da - Labs CBC & Chem 7: 01/09/18 04:00 01/09/18 04:00 Labs: Abnormal Lab Results 01/09/18 01/09/18 01/08/18 04:00 04:00 05:40 WBC 14.6 H RBC 3.67 L Hgb 11.7 L Hct 34.8 L MPV 7.3 L Gran % 86.6 H Lymph % (Auto) 8.0 L Gran # 12.7 H Lymph # (Auto) 1.2 L APTT Potassium Carbon Dioxide 21 L POC Total CO2 Anion Gap BUN 5 L Glucose 123 H POC Glucose Uric Acid 2.4 L Calcium 8.5 L POC WB Ioniz Calcium Phosphorus Alkaline Phosphatase Globulin Triglycerides HDL Cholesterol Amylase Lipase Urine Ketones 20 A Urine Occult Blood 0.03 A Urine RBC 5 H 01/08/18 01/08/18 01/08/18 03:50 03:50 03:50 WBC RBC 3.81 L Hgb 12.4 L Hct 35.9 L MPV 7.3 L Gran % Lymph % (Auto) 15.0 L Gran # Lymph # (Auto) 1.4 L APTT 42 H Potassium 3.2 L Carbon Dioxide 18 L POC Total CO2 Anion Gap 18.0 H BUN 6 L Glucose 112 H POC Glucose Uric Acid Calcium 8.5 L POC WB Ioniz Calcium Phosphorus 2.6 L Alkaline Phosphatase Globulin Triglycerides HDL Cholesterol Amylase Lipase 421 H Urine Ketones Urine Occult Blood Urine RBC 01/07/18 01/07/18 01/07/18 10:07 10:07 10:07 WBC 13.1 H RBC 4.44 L Hgb Hct MPV Gran % 85.7 H Lymph % (Auto) 8.9 L Gran # 11.2 H Lymph # (Auto) 1.2 L APTT Potassium Carbon Dioxide 17 L POC Total CO2 19 L Anion Gap 22.0 H BUN Glucose 143 H POC Glucose 143 H Uric Acid Calcium POC WB Ioniz Calcium 1.05 L Phosphorus Alkaline Phosphatase 127 H Globulin 4.0 H Triglycerides 156 H HDL Cholesterol 27 L Amylase 190 H Lipase 1202 H Urine Ketones Urine Occult Blood Urine RBC Meds: Medications Alprazolam (Xanax) 0.5 mg PO HSP PRN PRN Reason: Insomnia Amlodipine Besylate (Norvasc) 10 mg PO QDAY [facility] Last Admin: 01/09/18 10:08 Dose: 10 mg Atenolol (Tenormin) 100 mg PO DAILY [facility] Last Admin: 01/09/18 10:08 Dose: 100 mg Escitalopram Oxalate (Lexapro) 20 mg PO QDAY [facility] Last Admin: 01/09/18 10:07 Dose: 20 mg Famotidine (Pepcid) 20 mg IV Q12 [facility] Last Admin: 01/09/18 10:04 Dose: 20 mg Sodium Chloride (Sodium Chloride 0.9%) 1,000 mls @ 100 mls/hr IV .Q10H [facility] Last Admin: 01/09/18 05:24 Dose: 100 mls/hr Piperacillin Sod/Tazobactam (Sod 4.5 gm/ Dextrose) 50 mls @ 100 mls/hr IV Q8H [facility] Last Infusion: 01/09/18 06:27 Dose: Infused Acetaminophen (Ofirmev) 1,000 mg in 100 mls @ 200 mls/hr IV Q6HP PRN PRN Reason: Pain Last Infusion: 01/09/18 08:35 Dose: Infused Morphine Sulfate (Morphine) 5 mg IV Q4HP PRN PRN Reason: Pain Last Admin: 01/09/18 10:20 Dose: 5 mg Nicotine (Nicoderm) 21 mg TOPICAL DAILY@1000 [facility] Last Admin: 01/09/18 10:10 Dose: 21 mg Ondansetron HCl (Zofran) 4 mg IV Q6HP PRN PRN Reason: Nausea And Vomiting [facility] Last Admin: 01/09/18 10:08 Dose: 25 mg Medical - PN: A/P - Time Spent With Patient Total time spent is greater than 50% in coordination of care (as documented) at patient's floor/unit and/or counseling patient: 15 - 24 minutes - Narrative A/P Narrative: 1) Appendicitis - s/p lap appy with significant pain. Dr Parr following, referred pt to his expertise, continue Zosyn per Dr Parr order. 2) Elevated lipase - doubt significant primary pancreatitis. Lipase completely normalized. Suspect acute elevation due to associated inflammation with acute appendicitis 3) Hypokalemia - corrected with IV rider yesterday, normal value today. 4) Tobacco dependence - happy with patch and much more interested in cessation. Will continue. 5) Disposition - anticipate return home, still requiring significant IV pain medications at present. Medical - PN: Qual - Stroke Symptom Onset Unknown: No - VTE Deep Vein Thrombosis/Pulmonary Embolism Present on Admission: No
[2018-01-09] MEDS ORDERED: PROMETHAZINE 25 MG/ML VIAL IV PRN (17:46)
--- NOTE | 2018-01-09 17:49 | General Surgery Progress Note ---
Subjective Patient reports: still having pain, tolerating liquids well, flatus, no bowel movement, afebrile Narrative: Note initiated : 01/09/18 at 5:49 pm Service Date, if different from initiated Date: [] Patient: Jalen Merlos 67 y/o M admitted on 01/07/18 for Rt Sided Abd Pain/ Pancreatitis, Appendicitis. Chief Complaint: [Patient is having more pain than would be anticipated. The pain is primarily in the mid abdomen. Does not have much appetite but is tolerating some liquids. He had flatus but no bowel movement. Operative sites look unremarkable. INO draining serosanguineous and small in volume. White blood count is 14,600] Objective Temp Pulse Resp BP Pulse Ox 98.2 F 72 20 119/68 93 01/09/18 16:00 01/09/18 16:00 01/09/18 08:15 01/09/18 16:00 01/09/18 16:00 - Additional Data Intake & Output - Last 24 hours: Intake & Output 01/07/18 01/08/18 01/09/18 01/10/18 05:59 05:59 05:59 05:59 Intake Total 1590 / 1590 3559.0909 / 3559.0909 780 / 780 Output Total 1270 / 1270 2050 / 2050 1200 / 1200 Balance 320 / 320 1509.0909 / 1509.0909 -420 / -420 Weight 140 lb 148 lb 148 lb - General physical appearance moderate distress, moderate pain - Eyes PERRL, normal ocular movement - ENT normal pinna, normal nares, normal mucosa, no hearing loss, no congestion - Neck no masses, no bruits, trachea midline, no lymphadectomy, no venous distension - Respiratory other (course tubular breath sounds but no wheezes) - Cardiovascular Cardiovascular exam: Present: normal rate and rhythm, RRR, +S1, +S2, systolic murmur. Absent: JVD - Abdomen tender (mild tenderness around the port sites; mild distention) - Integumentary no rash, no growths, no abnormal pigmentation - Neurologic normal coordination, normal sensation - Psychiatric oriented to time, oriented to person, oriented to place, speech is normal, memory intact - Labs 01/11/18 03:50 01/11/18 03:50 Diabetes panel 01/09/18 Range/Units 04:00 Sodium 136 (133-145) mmol/L Potassium 3.9 (3.3-5.1) mmol/L Chloride 101 (96-108) mmol/L Carbon Dioxide 21 L (22-30) mmol/L BUN 5 L (8-23) mg/dl Creatinine 0.9 (0.7-1.2) mg/dl Glucose 123 H (70-105) mg/dL Calcium 8.5 L (8.6-10.4) mg/dl AST 15 (0-37) U/l ALT 14 (0-40) U/l Alkaline Phosphatase 88 (39-117) U/L Total Protein 6.5 (5.9-8.4) gm/dL Albumin 3.5 (3.2-5.2) gm/dL Triglycerides 93 (<150) mg/dl Calcium panel 01/09/18 Range/Units 04:00 Calcium 8.5 L (8.6-10.4) mg/dl Phosphorus 3.4 (2.7-4.5) mg/dL Albumin 3.5 (3.2-5.2) gm/dL Pituitary panel 01/09/18 Range/Units 04:00 Sodium 136 (133-145) mmol/L Potassium 3.9 (3.3-5.1) mmol/L Chloride 101 (96-108) mmol/L Carbon Dioxide 21 L (22-30) mmol/L BUN 5 L (8-23) mg/dl Creatinine 0.9 (0.7-1.2) mg/dl Glucose 123 H (70-105) mg/dL Calcium 8.5 L (8.6-10.4) mg/dl Adrenal panel 01/09/18 Range/Units 04:00 Sodium 136 (133-145) mmol/L Potassium 3.9 (3.3-5.1) mmol/L Chloride 101 (96-108) mmol/L Carbon Dioxide 21 L (22-30) mmol/L BUN 5 L (8-23) mg/dl Creatinine 0.9 (0.7-1.2) mg/dl Glucose 123 H (70-105) mg/dL Calcium 8.5 L (8.6-10.4) mg/dl Total Bilirubin 0.3 (0.0-1.0) mg/dL AST 15 (0-37) U/l ALT 14 (0-40) U/l Alkaline Phosphatase 88 (39-117) U/L Total Protein 6.5 (5.9-8.4) gm/dL Albumin 3.5 (3.2-5.2) gm/dL Assessment and Plan (1) Acute appendicitis Status: Acute Assessment and plan: Stable status post appendectomy (2) Pancreatitis Status: Acute Assessment and plan: Lipase has returned to normal; no evidence of acute pancreatitis (3) Diabetes mellitus Problem details: watches his diet most recent HbA1c was 6.8 Status: Chronic (4) Chronic kidney disease, stage III (moderate) Status: Chronic - Time Spent With Patient Total time spent is greater than 50% in coordination of care (as documented) at patient's floor/unit and/or counseling patient:
[2018-01-09] MEDS: KETOROLAC 15 MG/ML VIAL IV SCH ×2 (18:07→23:34)
[2018-01-09] MEDS: MEPERIDINE 50 MG/ML INJECTION IV PRN ×2 (19:29→23:35)
--- NOTE | 2018-01-10 06:09 | Internal Med Progress Note ---
Medical - PN: Subj Patient information: Note initiated : 01/10/18 at 6:09 am Patient: Jalen Merlos 67 y/o M admitted on 01/07/18 for Rt Sided Abd Pain, acute appendicitis with associated elevation in lipase which has since normalize. S/P lap appy 01/08/18. Interval history: Has had significant postoperative pain which has been managed with Demerol by Dr. Parr. Dr. Parr advancing diet, patient denies nausea or vomiting. Still with c/o abdominal pain, but feels better. Hasn't used the saline drops for his nasal congestion yet, but he notes that is not bothering him much this morning either. Nicotine patch still in place, he reports he thinks it helps with urge for cigarette. No other new complaints: no fevers, no chills, no headache. No calf pain. [place] like getting up to walk today. - Constitutional Vitals: Vital Signs Temp Pulse Resp BP Pulse Ox 97.8 F 74 16 121/68 94 01/10/18 04:00 01/10/18 04:00 01/10/18 04:00 01/10/18 04:00 01/10/18 04:00 Period Temp Pulse Resp BP Sys/Longo Pulse Ox Last 24 Hr 97.8 F-98.2 F 70-88 16-22 111-121/59-68 92-95 Intake and Output 01/09/18 01/10/18 01/10/18 21:59 05:59 13:59 Intake Total 630 / 630 200 / 200 Output Total 1025 / 1025 250 / 250 Balance -395 / -395 -50 / -50 Weight 143 lb 8 oz Intake & Output: Intake & Output 01/09/18 01/10/18 01/10/18 21:59 05:59 13:59 Intake Total 630 / 630 200 / 200 Output Total 1025 / 1025 250 / 250 Balance -395 / -395 -50 / -50 Weight 143 lb 8 oz Intake: IV 150 / 150 OFIRMEV 1,000 mg In 100 ml @ 100 / 100 200 mls/hr IV Q6HP PRN Rx#: [id number] Zosyn 4.5 gm In Dextrose 5% in 50 / 50 Water 50 ml @ 100 mls/hr IV Q8H [facility] Rx#:[id number] Oral 480 / 480 200 / 200 Output: Drainage 50 / 50 50 / 50 Right Lower INO Drain 50 / 50 50 / 50 Void Amount 975 / 975 200 / 200 Other: Meal Lunch Percent of Meal Consumed 100% Exam: GENERAL: Sleeping when I first went in, rouses easily. Alert, oriented. Speech coherent, fluent, articulate. Thought content appropriate. Respirations unlabored. HEENT: Membranes moist. LUNGS: Clear to bases bilaterally, no wheezes, no crackles, no focally diminished breath sounds. COR: Regular rate and rhythm, 3/6 systolic murmur with radiation into the sternal notch and both carotids. ABDOMEN: Rounded, gloria in small umbilical incision, drain in place with small amt. serosanginous drainage. Quiescent BS, tenderness noted, soft. EXTREMITIES: No edema, pulses x4, warm. No palpable cords, no nail bed cyanosis. Medical - PN: Obj Da - Labs CBC & Chem 7: 01/10/18 04:15 01/10/18 04:15 Labs: Abnormal Lab Results 01/09/18 01/09/18 01/08/18 04:00 04:00 05:40 WBC 14.6 H RBC 3.67 L Hgb 11.7 L Hct 34.8 L MPV 7.3 L Gran % 86.6 H Lymph % (Auto) 8.0 L Gran # 12.7 H Lymph # (Auto) 1.2 L APTT Potassium Carbon Dioxide 21 L POC Total CO2 Anion Gap BUN 5 L Glucose 123 H POC Glucose Uric Acid 2.4 L Calcium 8.5 L POC WB Ioniz Calcium Phosphorus Alkaline Phosphatase Globulin Triglycerides HDL Cholesterol Amylase Lipase Urine Ketones 20 A Urine Occult Blood 0.03 A Urine RBC 5 H 01/08/18 01/08/18 01/08/18 03:50 03:50 03:50 WBC RBC 3.81 L Hgb 12.4 L Hct 35.9 L MPV 7.3 L Gran % Lymph % (Auto) 15.0 L Gran # Lymph # (Auto) 1.4 L APTT 42 H Potassium 3.2 L Carbon Dioxide 18 L POC Total CO2 Anion Gap 18.0 H BUN 6 L Glucose 112 H POC Glucose Uric Acid Calcium 8.5 L POC WB Ioniz Calcium Phosphorus 2.6 L Alkaline Phosphatase Globulin Triglycerides HDL Cholesterol Amylase Lipase 421 H Urine Ketones Urine Occult Blood Urine RBC 01/07/18 01/07/18 01/07/18 10:07 10:07 10:07 WBC 13.1 H RBC 4.44 L Hgb Hct MPV Gran % 85.7 H Lymph % (Auto) 8.9 L Gran # 11.2 H Lymph # (Auto) 1.2 L APTT Potassium Carbon Dioxide 17 L POC Total CO2 19 L Anion Gap 22.0 H BUN Glucose 143 H POC Glucose 143 H Uric Acid Calcium POC WB Ioniz Calcium 1.05 L Phosphorus Alkaline Phosphatase 127 H Globulin 4.0 H Triglycerides 156 H HDL Cholesterol 27 L Amylase 190 H Lipase 1202 H Urine Ketones Urine Occult Blood Urine RBC Meds: Medications Alprazolam (Xanax) 0.5 mg PO HSP PRN PRN Reason: Insomnia Amlodipine Besylate (Norvasc) 10 mg PO QDAY [facility] Last Admin: 01/09/18 10:08 Dose: 10 mg Atenolol (Tenormin) 100 mg PO DAILY [facility] Last Admin: 01/09/18 10:08 Dose: 100 mg Escitalopram Oxalate (Lexapro) 20 mg PO QDAY [facility] Last Admin: 01/09/18 10:07 Dose: 20 mg Famotidine (Pepcid) 20 mg IV Q12 [facility] Last Admin: 01/09/18 21:56 Dose: 20 mg Piperacillin Sod/Tazobactam (Sod 4.5 gm/ Dextrose) 50 mls @ 100 mls/hr IV Q8H [facility] Last Admin: 01/09/18 21:56 Dose: 100 mls/hr Acetaminophen (Ofirmev) 1,000 mg in 100 mls @ 200 mls/hr IV Q6HP PRN PRN Reason: Pain Last Admin: 01/09/18 23:03 Dose: 200 mls/hr Sodium Chloride (Sodium Chloride 0.9%) 1,000 mls @ 50 mls/hr IV .Q20H [facility] Last Admin: 01/09/18 18:00 Dose: 50 mls/hr Ketorolac Tromethamine (Toradol) 15 mg IV Q6 [facility] Stop: 01/11/18 12:01 Last Admin: 01/09/18 23:34 Dose: 15 mg Meperidine HCl (Demerol) 50 mg IV Q4HP PRN PRN Reason: PAIN LEVEL > 6 Last Admin: 01/09/18 23:35 Dose: 50 mg Nicotine (Nicoderm) 21 mg TOPICAL DAILY@1000 [facility] Last Admin: 01/09/18 10:10 Dose: 21 mg Ondansetron HCl (Zofran) 4 mg IV Q6HP PRN PRN Reason: Nausea And Vomiting Promethazine HCl (Phenergan) 25 mg IV Q4HP PRN PRN Reason: Nausea And Vomiting Sodium Chloride ([place] Nasal) 2 spray JHONY Q4HP PRN PRN Reason: Congestion Spironolactone (Aldactone) 25 mg PO QAM [facility] Last Admin: 01/09/18 10:08 Dose: 25 mg Medical - PN: A/P - Time Spent With Patient Time spent with patient was 15 minutes. - Narrative A/P Narrative: 1) Appendicitis - s/p lap appy, postop day #[address] Parr following, referred pt to his expertise, continue Zosyn per Dr Parr order. WBC up today, but patient afebrile and looks better clinically. 2) Elevated lipase - 127 today, doubt any significance due to acute pancreatitis. Suspect related to abdominal inflammation due to complicated acute appendicitis. 3) Tobacco dependence - happy with patch and much more interested in cessation. Will continue. 4) Disposition - per staff, plan per surgery is discharge tomorrow, likely with continued antibiotics; anticipate return home. Medical - PN: Qual - Stroke Symptom Onset Unknown: No - VTE Deep Vein Thrombosis/Pulmonary Embolism Present on Admission: No
[2018-01-10] MEDS: KETOROLAC 15 MG/ML VIAL IV SCH ×4 (06:10→23:46)
[2018-01-10] MEDS: PIPERACILLIN SODIUM/TAZOBACTAM 4.5 GM in DEXTROSE 5% IN WATER 50 ML IV SCH ×3 (06:10→21:16)
[2018-01-10 06:56] LABS: Basophils # (Auto) 0 K/mcL (0.0-0.3); Basophils % (Auto) 0.1 % (0.0-2.0); Eosinophils # (Auto) 0.1 K/mcL (0.0-0.7); Eosinophils % (Auto) 0.5 % (0.0-7.0); Granulocytes % (Auto) 77.7 % (38.0-78.0); Lymphocytes % (Auto) 13.4 % (15.5-49.0); Mean Cell Volume 94.5 fL (80.0-100.0); Mean Corpuscular HGB Conc 33.6 g/dL (31.0-36.0); Mean Corpuscular Hemoglobin 31.7 pg (26.0-34.0); Monocytes # (Auto) 1.3 K/mcL (0.1-0.9); Monocytes % (Auto) 8.3 % (1.0-12.0); Platelet Count 340 K/mcL (140-440); RBC 3.56 M/mcL (4.50-5.90); Red Cell Distribution Width 13.1 % (11.5-14.5)
[2018-01-10 07:08] LABS: ALT/SGPT 12 U/l (0-40); Albumin/Globulin Ratio 1.1 (1.0-2.3); Alkaline Phosphatase 79 U/L (39-117); Bilirubin,Direct < 0.2 mg/dL (0.0-0.3); Blood Urea Nitrogen 7 mg/dl (8-23); Gamma Glutamyl Transpeptidase 39 U/L (8-61); Lipase 127 U/L (7-60); Uric Acid 2.4 mg/dL (2.5-8.0)
[2018-01-10] MEDS: MEPERIDINE 50 MG/ML INJECTION IV PRN ×4 (07:47→20:01)
[2018-01-10] MEDS: ATENOLOL 50 MG TABLET PO SCH (08:19)
[2018-01-10] MEDS: FAMOTIDINE/PF 20 MG/2 ML VIAL IV SCH ×2 (08:20→20:01)
[2018-01-10] MEDS: amLODIPine 10 MG TABLET PO SCH (08:20)
[2018-01-10] MEDS: SPIRONOLACTONE 25 MG TABLET PO SCH (08:20)
[2018-01-10] MEDS: ESCITALOPRAM 20 MG TABLET PO SCH (08:20)
--- NOTE | 2018-01-10 10:24 | Surgical Pathology Report ---
HISTOLOGY SPECIMEN MICROSCOPIC DIAGNOSIS APPENDIX, APPENDECTOMY: -- ACUTE APPENDICITIS. -- INCIDENTAL SERRATED ADENOMA. ([facility]:claudia) CLINICAL HISTORY Right sided abdominal pain. PROCEDURAL IMPRESSION Appendicitis. GROSS DESCRIPTION Received in formalin labeled appendix, is a 7.8 cm long by up to 1.1 cm in diameter pink to red-qureshi appendix with 0.8 cm of attached yellow-qureshi adipose tissue. The margin is stapled closed. There is red-qureshi hemorrhagic material on the surface and a disrupted area at the tip which may indicated a possible perforation. Medical Equipment Sales sections submitted - one cassette. The remainder of the appendix is entirely submitted in A2-A3. ([facility]:claudia) Electronically Signed by: Crystal Lawson D.O.
[2018-01-10] MEDS: NICOTINE 21 MG PATCH TOPICAL SCH (11:04)
[2018-01-10] MEDS: SODIUM CHLORIDE NASAL 1 SPRAY BOTTLE NAS PRN ×2 (11:41→20:11)
[2018-01-10] MEDS: metroNIDAZOLE 500 MG/100 ML BAG IV SCH ×3 (12:41→23:46)
--- NOTE | 2018-01-10 12:56 | General Surgery Progress Note ---
Subjective Patient reports: feels better, still having pain, pain is less, tolerating liquids well, flatus, no bowel movement, afebrile Narrative: Note initiated : 01/10/18 at 12:54 pm Service Date, if different from initiated Date: [] Patient: Jalen Merlos 67 y/o M admitted on 01/07/18 for Rt Sided Abd Pain/ Pancreatitis, Appendicitis. Chief Complaint: [the patient states that he feels better. He has less right flank pain. His pain with inspiration is better. He denies nausea and request that his diabetes advanced. He was passing flatus but not having bowel movements and she. Pathology on the appendix shows a perforated distal aspect which will explain the amount of inflammation that he in the retro-colic area. Based on this I will continue him on IV antibiotics for probably over the weekend. Flagyl is also added to his antibiotic regimen.] Objective Temp Pulse Resp BP Pulse Ox 97.7 F 67 16 115/67 97 01/10/18 11:34 01/10/18 11:34 01/10/18 11:34 01/10/18 11:34 01/10/18 11:34 - Additional Data Intake & Output - Last 24 hours: Intake & Output 01/08/18 01/09/18 01/10/18 01/11/18 05:59 05:59 05:59 05:59 Intake Total 1590 / 1590 3559.0909 / 3559.0909 1030 / 1030 50 / 50 Output Total 1270 / 1270 2049 / 2049 1675 / 1675 10 / 10 Balance 320 / 320 1509.0909 / 1509.0909 -645 / -645 40 / 40 Weight 140 lb 148 lb 143 lb 8 oz - General physical appearance well developed, well nourished, no distress - Eyes PERRL, normal ocular movement - ENT normal pinna, normal nares, normal mucosa, no hearing loss, no congestion - Neck no masses, no bruits, trachea midline, no lymphadectomy, no venous distension - Respiratory normal expansion, normal respiratory effort, clear to percussion, clear to auscultation - Cardiovascular Cardiovascular exam: Present: normal rate and rhythm, RRR, +S1, +S2. Absent: JVD - Abdomen tender (tenderness right flank and right CVA region as well as right lower quadrant; good active bowel sounds) - Integumentary no rash, no growths, no abnormal pigmentation - Neurologic normal coordination, normal sensation - Musculoskeletal normal gait, normal posture - Psychiatric oriented to time, oriented to person, oriented to place, speech is normal, memory intact - Labs 01/10/18 04:15 01/10/18 04:15 Diabetes panel 01/10/18 Range/Units 04:15 Sodium 139 (133-145) mmol/L Potassium 3.7 (3.3-5.1) mmol/L Chloride 105 (96-108) mmol/L Carbon Dioxide 22 (22-30) mmol/L BUN 7 L (8-23) mg/dl Creatinine 0.9 (0.7-1.2) mg/dl Glucose 98 (70-105) mg/dL Calcium 8.3 L (8.6-10.4) mg/dl AST 14 (0-37) U/l ALT 12 (0-40) U/l Alkaline Phosphatase 79 (39-117) U/L Total Protein 5.8 L (5.9-8.4) gm/dL Albumin 3.0 L (3.2-5.2) gm/dL Triglycerides 127 (<150) mg/dl Calcium panel 01/10/18 Range/Units 04:15 Calcium 8.3 L (8.6-10.4) mg/dl Phosphorus 2.8 (2.7-4.5) mg/dL Albumin 3.0 L (3.2-5.2) gm/dL Pituitary panel 01/10/18 Range/Units 04:15 Sodium 139 (133-145) mmol/L Potassium 3.7 (3.3-5.1) mmol/L Chloride 105 (96-108) mmol/L Carbon Dioxide 22 (22-30) mmol/L BUN 7 L (8-23) mg/dl Creatinine 0.9 (0.7-1.2) mg/dl Glucose 98 (70-105) mg/dL Calcium 8.3 L (8.6-10.4) mg/dl Adrenal panel 01/10/18 Range/Units 04:15 Sodium 139 (133-145) mmol/L Potassium 3.7 (3.3-5.1) mmol/L Chloride 105 (96-108) mmol/L Carbon Dioxide 22 (22-30) mmol/L BUN 7 L (8-23) mg/dl Creatinine 0.9 (0.7-1.2) mg/dl Glucose 98 (70-105) mg/dL Calcium 8.3 L (8.6-10.4) mg/dl Total Bilirubin 0.3 (0.0-1.0) mg/dL AST 14 (0-37) U/l ALT 12 (0-40) U/l Alkaline Phosphatase 79 (39-117) U/L Total Protein 5.8 L (5.9-8.4) gm/dL Albumin 3.0 L (3.2-5.2) gm/dL Assessment and Plan (1) Acute appendicitis Status: Acute Assessment and plan: Continue on Zosyn and Flagyl Continue to monitor white blood count Advanced to regular diet as tolerated Current Visit: Yes (2) Pancreatitis Status: Acute Assessment and plan: Resolved at this time Current Visit: Yes (3) Diabetes mellitus Problem details: watches his diet most recent HbA1c was 6.8 Status: Chronic Current Visit: No (4) Chronic kidney disease, stage III (moderate) Status: Chronic Current Visit: No - Time Spent With Patient Total time spent is greater than 50% in coordination of care (as documented) at patient's floor/unit and/or counseling patient:
[2018-01-10] MEDS: 0.9 % SODIUM CHLORIDE 1,000 ML IV SCH (15:19)
[2018-01-11] MEDS: MEPERIDINE 50 MG/ML INJECTION IV PRN ×2 (04:09→08:29)
[2018-01-11] MEDS: PIPERACILLIN SODIUM/TAZOBACTAM 4.5 GM in DEXTROSE 5% IN WATER 50 ML IV SCH (05:31)
[2018-01-11] MEDS: KETOROLAC 15 MG/ML VIAL IV SCH ×2 (05:32→12:00)
[2018-01-11 05:47] LABS: Basophils # (Auto) 0 K/mcL (0.0-0.3); Basophils % (Auto) 0.3 % (0.0-2.0); Eosinophils # (Auto) 0.3 K/mcL (0.0-0.7); Eosinophils % (Auto) 2.3 % (0.0-7.0); Granulocytes % (Auto) 69.9 % (38.0-78.0); Lymphocytes # (Auto) 2.6 K/mcL (1.5-4.8); Mean Cell Volume 94.8 fL (80.0-100.0); Mean Corpuscular Hemoglobin 32.3 pg (26.0-34.0); Monocytes # (Auto) 1.2 K/mcL (0.1-0.9); Monocytes % (Auto) 8.5 % (1.0-12.0); Platelet Count 365 K/mcL (140-440); RBC 3.76 M/mcL (4.50-5.90); Red Cell Distribution Width 13.3 % (11.5-14.5)
[2018-01-11] MEDS: metroNIDAZOLE 500 MG/100 ML BAG IV SCH ×2 (06:15→11:44)
[2018-01-11 06:20] LABS: ALT/SGPT 14 U/l (0-40); Alkaline Phosphatase 75 U/L (39-117); Bilirubin,Direct < 0.2 mg/dL (0.0-0.3); Blood Urea Nitrogen 9 mg/dl (8-23); Gamma Glutamyl Transpeptidase 42 U/L (8-61); Uric Acid 2.2 mg/dL (2.5-8.0)
[2018-01-11] MEDS: ESCITALOPRAM 20 MG TABLET PO SCH (08:50)
[2018-01-11] MEDS: SPIRONOLACTONE 25 MG TABLET PO SCH (08:50)
[2018-01-11] MEDS: ATENOLOL 50 MG TABLET PO SCH (08:50)
[2018-01-11] MEDS: amLODIPine 10 MG TABLET PO SCH (08:50)
[2018-01-11] MEDS: FAMOTIDINE/PF 20 MG/2 ML VIAL IV SCH (08:51)
[2018-01-11] MEDS ORDERED: DEXTROSE 50% 50 ML VIAL IV PRN (10:29)
[2018-01-11] MEDS ORDERED: DEXTROSE 31 GM ORAL.SUSP PO PRN (10:29)
[2018-01-11] MEDS ORDERED: INSULIN LISPRO 1 UNIT/0.01 ML UNIT SQ SCH (11:30)
[2018-01-11] MEDS ORDERED: oxyCODONE/APAP 5/325MG TABLET PO PRN (11:45)
--- NOTE | 2018-01-11 11:48 | Internal Med Progress Note ---
Medical - PN: Subj Patient information: Note initiated : 01/11/18 at 11:45 am Service Date, if different from initiated Date: [] Patient: Jalen Merlos 67 y/o M admitted on 01/07/18 for Rt Sided Abd Pain/ Pancreatitis, Appendicitis. Chief Complaint: [] Interval history: 01/11 Patient seen and examined, no acute overnight events, sitting comfortably in chair, able to tolerate p.o. food since yesterday. Still does not have any bowel movements. Notes he has not yet passed any gas since this morning at least to me. He has soreness at the site of surgery otherwise no other complaints. He denies any nausea or vomiting. Reviewed note from Dr. Parr, pathology showed perforated appendix, patient remains on Zosyn and Flagyl will likely need to stay in the hospital throughout the weekend Pertinent ROS: Denies headache, dizziness Denies chest pain, palpitations Denies cough or shortness of breath Denies abdominal pain, nausea or vomiting. - Constitutional Vitals: Vital Signs Temp Pulse Resp BP Pulse Ox 98.5 F 66 16 130/66 95 01/11/18 08:00 01/11/18 08:00 01/11/18 08:00 01/11/18 08:00 01/11/18 08:00 Period Temp Pulse Resp BP Sys/Longo Pulse Ox Last 24 Hr 97.5 F-98.5 F 60-71 16-16 102-133/62-74 94-97 Intake and Output 01/10/18 01/11/18 01/11/18 21:59 05:59 13:59 Intake Total 1999 600 / 600 Output Total 815 / 815 Balance 1999 -215 Weight 144 lb Intake & Output: Intake & Output 01/10/18 01/11/18 01/11/18 21:59 05:59 13:59 Intake Total 1999 600 / 600 Output Total 815 / 815 Balance 1999 -215 Weight 144 lb Intake: IV 1400 / 1400 100 / 100 Sodium Chloride 0.9% 1,000 ml @ 1000 / 1000 50 mls/hr IV .Q20H [facility] Rx#: [id number] OFIRMEV 1,000 mg In 100 ml @ 100 / 100 200 mls/hr IV Q6HP PRN Rx#: [id number] Zosyn 4.5 gm In Dextrose 5% in 100 / 100 Water 50 ml @ 100 mls/hr IV Q8H [facility] Rx#:[id number] Oral 600 / 600 500 / 500 Output: Drainage 40 / 40 Right Lower INO Drain 40 / 40 Void Amount 775 / 775 Other: Meal Dinner Percent of Meal Consumed 75% Feeding Ability Independent Exam: Constitutional; Afebrile, cooperative, alert, not in distress. Eyes- No icterus, , No periorbital swelling Ears- Ext ear normal, hearing normal to conversation. Neck- Midline trachea, supple Respiratory system: Air Entry equal on both sides, No crackles or wheezing, no rhonchi. CVS- Rate rhythm regular, S1,S2 heard, no gallop, no rub. Abdomen- Soft nontender abdomen, no organomegaly, no tenderness, no guarding or rigidity, [employer]- AOOx3, moving all extremities, no gross focal deficit noted. Medical - PN: Obj Da - Labs CBC & Chem 7: 01/11/18 03:50 01/11/18 03:50 Labs: Abnormal Lab Results 01/11/18 01/11/18 01/10/18 03:50 03:50 04:15 WBC 13.8 H 15.1 H RBC 3.76 L 3.56 L Hgb 12.1 L 11.3 L Hct 35.7 L 33.7 L MPV 7.3 L Gran % Lymph % (Auto) 13.4 L Gran # 9.7 H 11.7 H Lymph # (Auto) Randall # (Auto) 1.2 H 1.3 H Carbon Dioxide 21 L BUN Glucose Uric Acid 2.2 L Calcium 8.4 L Total Protein Albumin 3.0 L Lipase 01/10/18 01/09/18 01/09/18 04:15 04:00 04:00 WBC 14.6 H RBC 3.67 L Hgb 11.7 L Hct 34.8 L MPV 7.3 L Gran % 86.6 H Lymph % (Auto) 8.0 L Gran # 12.7 H Lymph # (Auto) 1.2 L Randall # (Auto) Carbon Dioxide 21 L BUN 7 L 5 L Glucose 123 H Uric Acid 2.4 L 2.4 L Calcium 8.3 L 8.5 L Total Protein 5.8 L Albumin 3.0 L Lipase 127 H Meds: Medications Alprazolam (Xanax) 0.5 mg PO HSP PRN PRN Reason: Insomnia Amlodipine Besylate (Norvasc) 10 mg PO QDAY [facility] Last Admin: 01/11/18 08:50 Dose: 10 mg Atenolol (Tenormin) 100 mg PO DAILY [facility] Last Admin: 01/11/18 08:50 Dose: 100 mg Dextrose (Dextrose 50%) 0 ml IV UD PRN PRN Reason: Hypoglycemia Diagnostic Test (Pha) (Accu-Chek) 1 each FS [facility] Escitalopram Oxalate (Lexapro) 20 mg PO QDAY [facility] Last Admin: 01/11/18 08:50 Dose: 20 mg Famotidine (Pepcid) 20 mg IV Q12 [facility] Last Admin: 01/11/18 08:51 Dose: 20 mg Glucose (Insta-Glucose) 15 gm PO PRN PRN PRN Reason: Hypoglycemia Piperacillin Sod/Tazobactam (Sod 4.5 gm/ Dextrose) 50 mls @ 100 mls/hr IV Q8H [facility] Last Admin: 01/11/18 05:31 Dose: 100 mls/hr Acetaminophen (Ofirmev) 1,000 mg in 100 mls @ 200 mls/hr IV Q6HP PRN PRN Reason: Pain Last Infusion: 01/10/18 19:53 Dose: Infused Sodium Chloride (Sodium Chloride 0.9%) 1,000 mls @ 50 mls/hr IV .Q20H [facility] Last Admin: 01/10/18 15:19 Dose: 50 mls/hr Metronidazole (Flagyl) 500 mg in 100 mls @ 100 mls/hr IV Q6H [facility] Last Admin: 01/11/18 06:15 Dose: 100 mls/hr Insulin Human Lispro (Humalog) 0 unit SQ [facility] PRN Reason: Protocol Ketorolac Tromethamine (Toradol) 15 mg IV Q6 [facility] Stop: 01/11/18 12:01 Last Admin: 01/11/18 05:32 Dose: 15 mg Meperidine HCl (Demerol) 50 mg IV Q4HP PRN PRN Reason: PAIN LEVEL > 6 Last Admin: 01/11/18 08:29 Dose: 50 mg Nicotine (Nicoderm) 21 mg TOPICAL DAILY@1000 [facility] Last Admin: 01/10/18 11:04 Dose: 21 mg Ondansetron HCl (Zofran) 4 mg IV Q6HP PRN PRN Reason: Nausea And Vomiting Promethazine HCl (Phenergan) 25 mg IV Q4HP PRN PRN Reason: Nausea And Vomiting Sodium Chloride ([place] Nasal) 2 spray JHONY Q4HP PRN PRN Reason: Congestion Last Admin: 01/10/18 20:11 Dose: 2 spray Spironolactone (Aldactone) 25 mg PO QAM [facility] Last Admin: 01/11/18 08:50 Dose: 25 mg Medical - PN: A/P - Time Spent With Patient Total time spent is greater than 50% in coordination of care (as documented) at patient's floor/unit and/or counseling patient: - Narrative A/P Narrative: A/P Acute Appendicitis - s/p lap appy, postop day #3 with post op pain, perforated appendix, on iv flagyl and zosyn, , added percoset as he is able to tolerate po diet. 2) Elevated lipase - likely related to perforated appendix than pancreatitis, tolerating po diet well. 3) Tobacco dependence -continue nicotine patch HTN/HLD: home meds resumed, bp stable. 4) Disposition - per surgery Medical - PN: Qual - Stroke Symptom Onset Unknown: No - VTE Deep Vein Thrombosis/Pulmonary Embolism Present on Admission: No
--- NOTE | 2018-01-11 14:03 | Discharge Summary ---
Providers - Providers Patient information: Note initiated : 01/11/18 at 2:00 pm Service Date, if different from initiated Date: [] Patient: Jalen Merlos 67 y/o M admitted on 01/07/18 for Rt Sided Abd Pain/ Pancreatitis, Appendicitis. Chief Complaint: [] Date of admission: 02/07/18 Discharge date: 01/11/18 Attending physician: Pauline Parr Hospitalization Hospital course: 67-year-old male seen in the emergency room with a 5 day history of right flank pain with associated nausea and vomiting. He also had back pain. He was noted to be in moderate severe distress with exquisite tenderness in the entire right lateral abdomen.. He also had leukocytosis and CT evidence of suspected retroperitoneal appendix extending up to the level of the ascending colon in the retro-colonic position. The patient was explored on December 27. He was noted to have a severely inflamed appendix extending from the base of the cecum and then retroperitoneal position up to the area of the hepatic flexure. Appendectomy was done. Pathology was compatible with a perforated appendix. The area was drained. He has had some serosanguineous drainage from the area but has otherwise done well. He has been afebrile and his white blood count has trended down. He is clinically stable and will be discharged home on Levaquin and Flagyl for 10 days. Discharge diagnosis: acute appendicitis with perforation Reason for admission: abdominal pain nausea and vomiting Procedures: Laparoscopic appendectomy Complications: None Exam Temp Pulse Resp BP Pulse Ox 96.5 F L 67 16 123/62 97 01/11/18 11:55 01/11/18 11:55 01/11/18 11:55 01/11/18 11:55 01/11/18 11:55 - General physical appearance well developed, well nourished, no distress - Eyes PERRL, normal ocular movement - ENT normal pinna, normal nares, normal mucosa, no hearing loss, no congestion - Head Head exam IM: Present: atraumatic, normocephalic - Neck no masses, no bruits, trachea midline, no lymphadectomy, no venous distension - Cardiovascular Cardiovascular exam IM: Present: normal rate and rhythm - Respiratory normal expansion, normal respiratory effort, clear to percussion, clear to auscultation - Abdomen Abdomen: Present: soft, tender (mild tenderness right CVA region and in the left lower quadrant around the port sites. INO drain with serosanguineous drainage), bowel sounds Hernia: Present: none - Genitourinary Present: normal penis with no external lesions - Integumentary Present: no rash, no growths, no abnormal pigmentation - Neurologic Present: normal coordination, normal sensation - Musculoskeletal Present: normal gait, normal posture - Psychiatric Present: oriented to time, oriented to person, oriented to place, speech is normal, memory intact Discharge Plan - Patient/Caregiver Discharge Instructions Activity: increase activity as tolerated Diet: Regular Diet Additional Instructions: Leave dressing on until he returned to the office Empty drainage container at least once daily Please complete all antibiotics Prescriptions: Levofloxacin [Levaquin] 500 mg PO DAILY #10 tablet metroNIDAZOLE [Metronidazole] 500 mg PO Q6 #40 tablet oxyCODONE/APAP [Percocet 5-325 mg] 1 tab PO Q4-6HP PRN #60 tablet PRN Reason: Pain Level 3-6 - Follow up Plan Follow up with: Abril Barry MD [Physician] - Pauline Parr MD [Physician] - 01/21/18 9:45 am Disposition: Home, Self-Care Prognosis: Good Rehab Potential: Good I certify that the patient requires SNF services.: No Overall status at discharge: patient is not back to baseline Pending Studies Resuscitation Status Full Code Diet Regular Diet Start Sat 1 1253 Amlodipine Besylate (Norvasc) 10 mg PO QDAY [facility] Last Admin: 01/11/18 08:50 Dose: 10 mg Admin: 01/10/18 08:20 Dose: 10 mg Admin: 01/09/18 10:08 Dose: 10 mg Atenolol (Tenormin) 100 mg PO DAILY [facility] Last Admin: 01/11/18 08:50 Dose: 100 mg Admin: 01/10/18 08:19 Dose: 100 mg Admin: 01/09/18 10:08 Dose: 100 mg Escitalopram Oxalate (Lexapro) 20 mg PO QDAY [facility] Last Admin: 01/11/18 08:50 Dose: 20 mg Admin: 01/10/18 08:20 Dose: 20 mg Admin: 01/09/18 10:07 Dose: 20 mg Famotidine (Pepcid) 20 mg IV Q12 [facility] Last Admin: 01/11/18 08:51 Dose: 20 mg Admin: 01/10/18 20:01 Dose: 20 mg Admin: 01/10/18 08:20 Dose: 20 mg Admin: 01/09/18 21:56 Dose: 20 mg Admin: 01/09/18 10:04 Dose: 20 mg Admin: 01/08/18 21:27 Dose: 20 mg Piperacillin Sod/Tazobactam (Sod 4.5 gm/ Dextrose) 50 mls @ 100 mls/hr IV Q8H [facility] Last Admin: 01/11/18 05:31 Dose: 100 mls/hr Infusion: 01/10/18 21:46 Dose: 100 mls/hr Admin: 01/10/18 21:16 Dose: 100 mls/hr Infusion: 01/10/18 15:20 Dose: 0 mls/hr Admin: 01/10/18 14:41 Dose: 100 mls/hr Infusion: 01/10/18 07:40 Dose: 100 mls/hr Admin: 01/10/18 06:10 Dose: 100 mls/hr Infusion: 01/09/18 22:26 Dose: 100 mls/hr Admin: 01/09/18 21:56 Dose: 100 mls/hr Infusion: 01/09/18 15:06 Dose: 0 mls/hr Admin: 01/09/18 14:36 Dose: 100 mls/hr Infusion: 01/09/18 06:27 Dose: 0 mls/hr Admin: 01/09/18 05:57 Dose: 100 mls/hr Infusion: 01/08/18 21:58 Dose: 100 mls/hr Admin: 01/08/18 21:28 Dose: 100 mls/hr Infusion: 01/08/18 16:10 Dose: 0 mls/hr Admin: 01/08/18 15:10 Dose: 100 mls/hr Acetaminophen (Ofirmev) 1,000 mg in 100 mls @ 200 mls/hr IV Q6HP PRN PRN Reason: Pain Last Infusion: 01/10/18 19:53 Dose: 0 mls/hr Admin: 01/09/18 23:03 Dose: 200 mls/hr Infusion: 01/09/18 16:43 Dose: 0 mls/hr Admin: 01/09/18 16:13 Dose: 200 mls/hr Infusion: 01/09/18 08:35 Dose: 0 mls/hr Admin: 01/09/18 08:05 Dose: 200 mls/hr Infusion: 01/08/18 18:19 Dose: 200 mls/hr Admin: 01/08/18 17:49 Dose: 200 mls/hr Sodium Chloride (Sodium Chloride 0.9%) 1,000 mls @ 50 mls/hr IV .Q20H [facility] Last Admin: 01/10/18 15:19 Dose: 50 mls/hr Infusion: 01/10/18 15:19 Dose: 0 mls/hr Admin: 01/09/18 18:00 Dose: 50 mls/hr Metronidazole (Flagyl) 500 mg in 100 mls @ 100 mls/hr IV Q6H [facility] Last Admin: 01/11/18 11:44 Dose: 100 mls/hr Infusion: 01/11/18 07:15 Dose: 100 mls/hr Admin: 01/11/18 06:15 Dose: 100 mls/hr Infusion: 01/11/18 01:15 Dose: 0 mls/hr Admin: 01/10/18 23:46 Dose: 100 mls/hr Infusion: 01/10/18 19:51 Dose: 0 mls/hr Admin: 01/10/18 17:43 Dose: 100 mls/hr Infusion: 01/10/18 14:40 Dose: 100 mls/hr Admin: 01/10/18 12:41 Dose: 100 mls/hr Meperidine HCl (Demerol) 50 mg IV Q4HP PRN PRN Reason: PAIN LEVEL > 6 Last Admin: 01/11/18 08:29 Dose: 50 mg Admin: 01/11/18 04:09 Dose: 50 mg Admin: 01/10/18 20:01 Dose: 50 mg Admin: 01/10/18 15:58 Dose: 50 mg Admin: 01/10/18 11:40 Dose: 50 mg Admin: 01/10/18 07:47 Dose: 50 mg Admin: 01/09/18 23:35 Dose: 50 mg Admin: 01/09/18 19:29 Dose: 50 mg Nicotine (Nicoderm) 21 mg TOPICAL DAILY@1000 [facility] Last Admin: 01/10/18 11:04 Dose: 21 mg Admin: 01/09/18 10:10 Dose: 21 mg Oxycodone/Acetaminophen (Percocet 5-325 Mg) 1 tab PO Q4-6HP PRN PRN Reason: PAIN LEVEL 3-6 Last Admin: 01/11/18 12:46 Dose: 1 tab Sodium Chloride ([place] Nasal) 2 spray JHONY Q4HP PRN PRN Reason: Congestion Last Admin: 01/10/18 20:11 Dose: 2 spray Admin: 01/10/18 11:41 Dose: 2 drop Spironolactone (Aldactone) 25 mg PO QAM [facility] Last Admin: 01/11/18 08:50 Dose: 25 mg Admin: 01/10/18 08:20 Dose: 25 mg Admin: 01/09/18 10:08 Dose: 25 mg Shift Summary 01/11/18 05:11 Shift Summary by Liya [email or web address]. Pt has 3 lap sites all closed with gloria and covered with tegaderm. INO to RLQ with 40ml serosanguinous drainage out tonight. Gave 50mg demerol x2 for 8 /10 pain. Receiving scheduled toradol. IV in RFA with NS @ 50 ml/hr. VSS on RA. Gets up with minimal assist. Calls appropriately. Pleasant and cooperative with cares. Initialized on 01/11/18 05:11 - END OF NOTE
[2018-01-11] MEDS: NICOTINE 21 MG PATCH TOPICAL SCH (14:06)
[2018-01-11] MEDS: ACETAMINOPHEN 1,000 MG/100 ML BOTTLE IV PRN (14:09)
== END 2018-01-11 15:25 | disposition home or self-care (01) | DRG 338 ==
LOC: ED 09:31 → MEDSUR 13:35
PROVIDERS: ADMIT Family Medicine; ATTEND Family Medicine
PROC: LAPAPPY (ICD-10-PCS; 2018-01-08 08:55)

== ENCOUNTER 2018-01-17 05:10 | Inpatient (IN) ==
[2018-01-17] MEDS ORDERED: IOPAMIDOL 100 ML BOTTLE IV ONE (05:11)
[2018-01-17] MEDS ORDERED: ONDANSETRON 4 MG/2 ML VIAL IV ONE (05:14)
[2018-01-17] MEDS ORDERED: ONDANSETRON 4 MG/2 ML VIAL ONE (05:17)
[2018-01-17] MEDS ORDERED: fentaNYL 100 MCG/2 ML VIAL IV ONE ×3 (05:18→07:57)
[2018-01-17] MEDS ORDERED: PROCHLORPERAZINE 10 MG/2 ML VIAL IV ONE (05:30)
[2018-01-17] MEDS ORDERED: 0.9 % SODIUM CHLORIDE 1,000 ML IV ONE (05:37)
--- NOTE | 2018-01-17 05:52 | Emergency Department Note ---
Abdominal Pain HPI - General Chief Complaint: Abdominal Pain Stated Complaint: abdominal pain Time Seen by Provider: 01/17/18 05:48 Source: patient Mode of arrival: ambulatory Limitations: no limitations - History of Present Illness HPI Narrative: This 67-year-old pleasant gentleman comes to the emergency room, accompanied by his daughter, with 2-3 days of increasing abdominal pain associated with nausea and vomiting. He did some vomiting of blood. This started around 1:59 AM. He usually has some vomiting in the mornings for a couple of hours then it has gone away; this during the last couple of days. He had his appendix removed 9 days ago (Dr. Parr). He has had difficulties being able to eat or drink. He reports that his appendix had adhered to his colon but had also ruptured. He has had a INO drain in place and has been draining nearly full per 24 hour. He is currently taking metronidazole and Levaquin. He denies fevers although feels cold with chills but no sweats. He has lost weight he thinks even 25-30 pounds. He is still urinating some but has some diarrhea that is black to red and watery. Last night had a sensation of feeling full and took some soda water. REVIEW OF SYSTEMS: No chest pain. He had some racing of his heart during the night. No cough. He does feel some short of breath. Some acid reflux. Had some burning with urination this morning. No back pain. Has been pale even since before surgery. Has felt dizziness when he is given getting up. Some anxiety symptoms. No depression. - Related Data Home Medications Medication Instructions Recorded Confirmed escitalopram 20 mg tablet 20 mg PO QDAY tab 11/07/15 01/17/18 hydrocodone 10 mg-acetaminophen 1 each PO .3-4 hours PRN 30 Days 05/06/17 325 mg tablet #300 tab spironolactone 25 mg tablet 25 mg PO QAM 11/05/17 01/17/18 Previous Rx's Medication Instructions Recorded amlodipine 10 mg tablet 10 mg PO QDAY #90 tab 07/24/17 atenolol 100 mg tablet 100 mg PO QDAY #90 tab 07/24/17 atorvastatin 40 mg tablet 40 mg PO QDAY #90 tab 07/24/17 gemfibrozil 600 mg tablet 600 mg PO BID #60 tab 12/16/17 Levofloxacin [Levaquin] 500 mg PO DAILY #10 tab 01/11/18 metroNIDAZOLE [Metronidazole] 500 mg PO Q6 #40 tab 01/11/18 oxyCODONE/APAP [Percocet 5-325 mg] 1 tab PO Q4-6HP PRN #60 tab 01/11/18 Allergies Allergy/AdvReac Type Severity Reaction Status Date / Time No Known Drug Allergies Allergy Verified 11/05/17 13:20 Abdominal Pain PMH - Past Medical History Medical history: Reports: DM (diet-controlled), hyperlipidemia, hypertension, renal disease (creatinine - 0.8 to 1.2 (2017); 1.5-1.8 (2014).), other (Chronic low back pain. Gout. Alcoholic pancreatitis. Alcoholism.). Denies: cancer, coronary artery disease, CVA, myocardial infarction, thyroid disease, TIA Surgical history ED: Reports: appendectomy Psychiatric history: Reports: anxiety. Denies: depression Family history: Reports: other (Son and granddaughter with type 1 diabetes) - Social History Smoking status: Current every day smoker (1 pack per day) Alcohol use: Reports: None (Quit drinking 2008.) Drug use: Reports: none. Denies: marijuana Physical Exam Limitations: no limitations General appearance: alert, in distress (Expressions and pain and some rapid breathing.) Head: atraumatic, normocephalic Eye: Present: EOMI ENT: mucous membranes dry (Very) Neck: Present: trachea midline. Absent: lymphadenopathy, thyromegaly Respiratory: Present: normal lung sounds bilaterally. Absent: respiratory distress, wheezes, stridor, accessory muscle use, prolonged expiratory phase Cardiovascular: Present: regular rate, tachycardia. Absent: systolic murmur, diastolic murmur Abdominal: Present: soft, tenderness (Some mild diffusely but mostly lower one half.). Absent: distention, guarding, rebound, rigidity, organomegaly, mass Extremities: Absent: pedal edema, pretibial edema, calf tenderness Back: Absent: CVA tenderness (R), CVA tenderness (L) Neurological: Present: alert, oriented X3 Psychiatric: Present: flat affect, other (Some limited eye contact.) Skin: Present: warm, dry Course Course Narrative: 5:15 AM Significant pain 9 days postoperatively with nausea and vomiting. Consider small bowel obstruction. Also had some bloody and/or black diarrhea. Will do multiple labs. 5:45 AM POC Chem-8 with hematocrit of 41.1. Creatinine is 1.1 which is not far off of where he used to be. CT abd / pelvis with contrast ordered. 6:35 AM Elevated lipase of over 800. Patient gives additional history of alcoholic pancreatitis. He admits to a history of alcoholism in the past. Vital Signs Temperature 97.0 F 01/17/18 05:10 Pulse Rate 92 H 01/17/18 05:10 Respiratory Rate 19 01/17/18 05:10 Blood Pressure 149/96 01/17/18 05:10 Pulse Oximetry (%) 100 01/17/18 05:10 Temperature 97.0 F 01/17/18 05:10 Pulse Rate 85 01/17/18 08:52 Respiratory Rate 21 01/17/18 08:52 Blood Pressure 123/66 01/17/18 08:46 Pulse Oximetry (%) 95 01/17/18 08:52 Abdominal Pain - MDM Narrative Medical decision making narrative: Patient's clinical scenario was discussed with radiologist, with consideration that it appears that there is remnant appendix and it is inflamed. Also that the pancreatic duct is significantly dilated at 8 mm (normal being 2 mm) with a rather quick narrowing suggesting possible stricture. He brings up the question of if this could be stented to prevent recurrent disease. Path report reviewed which documents a 7.8 appendix. I also discussed his situation with Dr. Parr who recalls this patient clearly and well. He requests that he be admitted with holding orders for antibiotics and nausea and pain orders and he will see the patient. He points out that patient has had recurrent pancreatic disease and been evaluated in [place] in the past. There is limited benefit to involve or consider procedures currently in that patient needs the other consideration of inflammation or infection cleared up related to his appendectomy and/or remnant appendicitis, before he would be a candidate to have a stent or procedure. Plus Dr. Hope, GI, that could put the stent in, will be leaving town today and it would be better for patient to return to consider this with him and his staff on a Saturday such that if intervention were desired and recommended that follow-up could be done subsequently. See admitting orders. Will need to be cautious regarding his pancreatitis and third spacing of fluids. - Lab Data Result diagrams: 01/17/18 05:24 01/17/18 05:24 Lab Results 01/17/18 01/17/18 01/17/18 Range/Units 05:24 05:24 05:24 WBC 18.5 H (4.5-11.0) K/mcL RBC 4.62 (4.50-5.90) M/mcL Hgb 14.4 (13.5-16.5) g/dL Hct 43.6 (41.0-55.0) % POC Hct (41.0-55.0) % MCV 94.4 (80.0-100.0) fL MCH 31.3 (26.0-34.0) pg MCHC 33.1 (31.0-36.0) g/dL RDW 13.0 (11.5-14.5) % Plt Count 604 H (140-440) K/mcL MPV 7.6 (7.4-10.4) fL Gran % 76.9 (38.0-78.0) % Lymph % (Auto) 16.3 (15.5-49.0) % Crane % (Auto) 6.1 (1.0-12.0) % Eos % (Auto) 0.7 (0.0-7.0) % Baso % (Auto) 0 (0.0-2.0) % Gran # 14.2 H (1.8-8.0) K/mcL Lymph # (Auto) 3.0 (1.5-4.8) K/mcL Crane # (Auto) 1.1 H (0.1-0.9) K/mcL Eos # (Auto) 0.1 (0.0-0.7) K/mcL Baso # (Auto) 0 (0.0-0.3) K/mcL VBG Lactic Acid 3.2 H (0.5-2.2) mmol/L POC Sodium (133-145) mmol/L Sodium 134 (133-145) mmol/L POC Potassium (3.3-5.1) mmol/L Potassium 4.0 (3.3-5.1) mmol/L POC Chloride (96-108) mmol/L Chloride 93 L (96-108) mmol/L Carbon Dioxide 21 L (22-30) mmol/L POC Total CO2 (22-30) mmol/L Anion Gap 20.0 H (8-16) POC BUN (8-23) mg/dl BUN 8 (8-23) mg/dl Creatinine 1.0 (0.7-1.2) mg/dl POC Creatinine (0.7-1.2) mg/dl GFR Calculation 77 Glucose 161 H (70-105) mg/dL POC Glucose (70-105) mg/dL Calcium 9.5 (8.6-10.4) mg/dl POC WB Ioniz Calcium (1.16-1.32) mmol/L Total Bilirubin 0.3 (0.0-1.0) mg/dL AST 13 (0-37) U/l ALT 8 (0-40) U/l Alkaline Phosphatase 105 (39-117) U/L C-Reactive Protein (0.0-0.8) mg/dl Total Protein 7.9 (5.9-8.4) gm/dL Albumin 4.1 (3.2-5.2) gm/dL Globulin 3.8 H (2.2-3.7) gm/dL Albumin/Globulin Ratio 1.1 (1.0-2.3) Lipase (7-60) U/L 18 18 Range/Units 05:24 05:34 WBC (4.5-11.0) K/mcL RBC (4.50-5.90) M/mcL Hgb (13.5-16.5) g/dL Hct (41.0-55.0) % POC Hct 41.0 (41.0-55.0) % MCV (80.0-100.0) fL MCH (26.0-34.0) pg MCHC (31.0-36.0) g/dL RDW (11.5-14.5) % Plt Count (140-440) K/mcL MPV (7.4-10.4) fL Gran % (38.0-78.0) % Lymph % (Auto) (15.5-49.0) % Crane % (Auto) (1.0-12.0) % Eos % (Auto) (0.0-7.0) % Baso % (Auto) (0.0-2.0) % Gran # (1.8-8.0) K/mcL Lymph # (Auto) (1.5-4.8) K/mcL Crane # (Auto) (0.1-0.9) K/mcL Eos # (Auto) (0.0-0.7) K/mcL Baso # (Auto) (0.0-0.3) K/mcL VBG Lactic Acid (0.5-2.2) mmol/L POC Sodium 134 (133-145) mmol/L Sodium (133-145) mmol/L POC Potassium 3.7 (3.3-5.1) mmol/L Potassium (3.3-5.1) mmol/L POC Chloride 101 (96-108) mmol/L Chloride (96-108) mmol/L Carbon Dioxide (22-30) mmol/L POC Total CO2 20 L (22-30) mmol/L Anion Gap (8-16) POC BUN 7 L (8-23) mg/dl BUN (8-23) mg/dl Creatinine (0.7-1.2) mg/dl POC Creatinine 1.1 (0.7-1.2) mg/dl GFR Calculation Glucose (70-105) mg/dL POC Glucose 172 H (70-105) mg/dL Calcium (8.6-10.4) mg/dl POC WB Ioniz Calcium 1.02 L (1.16-1.32) mmol/L Total Bilirubin (0.0-1.0) mg/dL AST (0-37) U/l ALT (0-40) U/l Alkaline Phosphatase (39-117) U/L C-Reactive Protein 3.4 H (0.0-0.8) mg/dl Total Protein (5.9-8.4) gm/dL Albumin (3.2-5.2) gm/dL Globulin (2.2-3.7) gm/dL Albumin/Globulin Ratio (1.0-2.3) Lipase 800 H (7-60) U/L Disposition Pt seen by BUSINESS BANKING MANAGER/PA only: No Clinical Impression: History of appendectomy, Abnormal CT of the abdomen, Renal insufficiency, mild Pancreatitis, acute Qualifiers: Pancreatitis type: unspecified pancreatitis type Acute pancreatitis complication: no infection or necrosis Qualified Code(s): K85.90 - Acute pancreatitis without necrosis or infection, unspecified Disposition: Xfer As Inpt ([facility]) Condition: Fair Referrals: Elizabeth Berger ARNP [Primary Care Provider] -
[2018-01-17 06:26] LABS: ALT/SGPT 8 U/l (0-40); Albumin 4.1 gm/dL (3.2-5.2); Albumin/Globulin Ratio 1.1 (1.0-2.3); Alkaline Phosphatase 105 U/L (39-117); Blood Urea Nitrogen 8 mg/dl (8-23)
[2018-01-17 06:29] LABS: Basophils # (Auto) 0 K/mcL (0.0-0.3); Basophils % (Auto) 0 % (0.0-2.0); Eosinophils # (Auto) 0.1 K/mcL (0.0-0.7); Eosinophils % (Auto) 0.7 % (0.0-7.0); Granulocytes % (Auto) 76.9 % (38.0-78.0); Lymphocytes % (Auto) 16.3 % (15.5-49.0); Mean Cell Volume 94.4 fL (80.0-100.0); Mean Corpuscular HGB Conc 33.1 g/dL (31.0-36.0); Mean Corpuscular Hemoglobin 31.3 pg (26.0-34.0); Monocytes # (Auto) 1.1 K/mcL (0.1-0.9); Monocytes % (Auto) 6.1 % (1.0-12.0); Platelet Count 604 K/mcL (140-440); RBC 4.62 M/mcL (4.50-5.90)
[2018-01-17 06:31] LABS: Lipase 800 U/L (7-60)
[2018-01-17] MEDS ORDERED: LACTATED RINGERS 1,000 ML IV ONE (06:33)
--- NOTE | 2018-01-17 07:37 | Cat Scan Report ---
CLINICAL INFORMATION: Follow up pancreatitis COMPARISON: Abdominal CT 01/05/[address] 01/07/2018. TECHNIQUE: Following enteric contrast, 80 cc of Isovue-300 were injected intravenously, and 60 seconds later, 0.625 mm helical slices were obtained from the mid heart through the subtrochanteric regions. Following reconstruction, 2.5 mm sagittal, coronal and axial reformatted images were processed and reviewed at bone, lung and soft tissue windows. Five minutes later, 0.625 mm helical slices were obtained from the mid heart through the kidneys and viewed at soft tissue windows.The exam was performed using radiation dose optimization techniques including, but not limited to, automated exposure control, adjustment of the mA and/or kV according to patient size and use of iterative reconstruction technique. FINDINGS: Lung bases show no abnormality - no effusion. Heart is grossly normal in size and configuration with mitral annular calcification noted Images through the abdomen show minimal fatty change within the liver, but no focal hepatic lesion. Gallbladder is moderately enlarged without stones or wall thickening. Multiple calcifications within the pancreatic head, neck and proximal body ranging between two and 15 mm and compatible with chronic pancreatitis. The pancreatic duct is moderately dilated and irregular ranging up to 8 mm in the pancreatic body. Smooth tapering of the pancreatic duct noted in the preampullary region. There is moderate inflammation within the pancreatic head and neck parenchyma with inflammation extending into the peripancreatic and periduodenal region. The degree of inflammation has increased modestly compared to the study over one week ago. There is no evidence of pancreatic necrosis, abscess, pseudoaneurysm, venous thrombosis or other complications of pancreatitis. The common bile duct remains normal caliber - 6 mm. Both kidneys, adrenal glands, spleen and aorta including aortic branches are unremarkable. The stomach small and large bowel show mild ileus pattern. The appendix is located in the retrocecal region and is relatively high position with the tip extending to the splenic left ureter. The appendix remains, dilated 21 mm diameter, with moderate wall thickening. There are surgical clips around the appendix not previously seen. Mild inflammatory changes in the periappendiceal fat are noted. Surgical drain enters the peritoneal cavity in the right midabdomen and then extends leftward and superiorly with the tip in the left upper quadrant mesenteric cavity. Images through the pelvis show prostate, seminal vesicles and urinary bladder to be normal. Bone windows show no osseous abnormality IMPRESSION: 1. Acute upon chronic pancreatitis. Moderate inflammation in the pancreatic head and neck parenchyma and peripancreatic lesion soft tissues has modestly increased since the comparison CT over one week prior. There are multiple large coarse calcifications throughout most of the pancreatic parenchyma with moderate dilatation of pancreatic duct ranging up to 8 mm. There is no evidence of abscess, necrosis or other complication from pancreatitis. There is narrowing of the pancreatic duct in the ampullary region: patient may benefit from GI referral for ERCP and pancreatic stent placement. 2. Appendix is retrocecal in location and remains moderate dilated with wall thickening. It is presumed this may be a sympathetic response to adjacent pancreatic inflammation, however, primary appendicitis is not excluded. Interpreted and Authenticated by: Vin Celis 01/17/18
[2018-01-17] MEDS ORDERED: PROMETHAZINE 25 MG/ML VIAL IV ONE (07:57)
[2018-01-17] MEDS ORDERED: NALOXONE HCL 0.4 MG/ML VIAL IV PRN (09:47)
[2018-01-17] MEDS ORDERED: LACTATED RINGERS 1,000 ML IV SCH (10:00)
[2018-01-17] MEDS: LACTATED RINGERS 1,000 ML IV SCH ×3 (11:09→18:18)
[2018-01-17] MEDS: PROMETHAZINE 25 MG/ML VIAL IV PRN ×3 (11:35→22:02)
[2018-01-17] MEDS: metroNIDAZOLE 500 MG/100 ML BAG IV SCH ×2 (12:10→18:18)
[2018-01-17] MEDS: PIPERACILLIN SODIUM/TAZOBACTAM 3.375 GM in DEXTROSE 5% IN WATER 50 ML IV SCH ×2 (13:13→17:39)
--- NOTE | 2018-01-17 15:08 | General Surg History&Physical ---
History of Present Illness Patient information: Note initiated : 01/17/18 at 3:07 pm Service Date, if different from initiated Date: [] Patient: Jalen Merlos a 67 y/o M admitted on 01/17/18 for abdominal pain. Chief Complaint: [] HPI: Mr. Merlos is a 67 year old M admitted with recurrent abdominal pain nausea vomiting and diarrhea. He is status post laparoscopic appendectomy on december 27. He was noted to have a severely inflamed appendix extending from the base of the cecum retroperitoneally up to the area of the hepatic flexure. Appendectomy was done. Pathology revealed perforated appendix. At the time of discharge the patient is afebrile and his white blood count was trending down. He had only serosanguineous drainage and his INO drain. He states that he has a three-day history of abdominal pain nausea and vomiting. He also had lower abdominal pain. White blood count is at increased to 18.5. CT of the abdomen is said to show residual appendix even though I'm quite sure that the appendix was removed. There may be a devascularize tip that was left since he had a phlegmon in the area. It is felt that this will resolve with antibiotics.. The area that P radiologist was calling residual appendix is actually the tract in which the ruptured appendix was laying. The drain is remote from this area so it is not adequately drained. This may be the reason for the leukocytosis and pain. Since there is no organ feeding the area should respond to IV antibiotics. The patient is admitted and will be treated with IV antibiotics and symptomatic treatment of his nausea and vomiting. Review of Systems - Constitutional chills, fever(s), malaise, weakness, weight loss - EENT Nose, mouth and throat: abnormal hearing, no dizziness - Cardiovascular irregular heart rhythm, lightheadedness, rapid heart rate, no chest pain at rest , no dyspnea on exertion, no pedal edema - Respiratory no wheezing, no pain on inspirtation, no chest congestion - Gastrointestinal abdominal pain, diarrhea, nausea, vomiting - Genitourinary no urinary frequency, no urinary incontinence, no urinary urgency - Musculoskeletal no abnormal gait, no myalgias - Integumentary no changing lesions, no new lesions - Neurological no convulsions, no dizziness, no headache(s), no tremor(s) - Psychiatric anxiety, change in appetite, depression - Endocrine fatigue, palpitations, no polydipsia, no polyphagia, no polyuria - Hematologic/Lymphatic no easy bleeding, no easy bruising, no lymphadenopathy - Allergic/Immunologic no tongue swelling, no throat swelling, no uticaria, no wheezing, no lip swelling Past History Past medical history: Hypertension Chronic alcoholic pancreatitis Chronic alcoholism Diabetes mellitus Past surgical history: Appendectomy Past family history: Diabetes mellitus Past social history: every day smoker Prior history of heavy alcohol use Denies drug use Medications and Allergies Home Medications Medication Instructions Recorded Confirmed Type escitalopram 20 mg tablet 20 mg PO QDAY tab 11/07/15 01/18/18 History hydrocodone 10 mg-acetaminophen 1 each PO .3-4 hours PRN 30 Days 05/06/17 History 325 mg tablet #300 tab amlodipine 10 mg tablet 10 mg PO QDAY #90 tab 07/24/17 01/18/18 Rx atenolol 100 mg tablet 100 mg PO QDAY #90 tab 07/24/17 01/18/18 Rx atorvastatin 40 mg tablet 40 mg PO QDAY #90 tab 07/24/17 01/18/18 Rx spironolactone 25 mg tablet 25 mg PO QAM 11/05/17 01/18/18 History gemfibrozil 600 mg tablet 600 mg PO BID #60 tab 12/16/17 01/18/18 Rx Levofloxacin [Levaquin] 500 mg PO DAILY #10 tab 01/11/18 01/18/18 Rx metroNIDAZOLE [Metronidazole] 500 mg PO Q6 #40 tab 01/11/18 01/18/18 Rx oxyCODONE/APAP [Percocet 5-325 mg] 1 tab PO Q4-6HP PRN #60 tab 01/11/18 Rx Allergies Allergy/AdvReac Type Severity Reaction Status Date / Time No Known Drug Allergies Allergy Verified 11/05/17 13:20 Exam Temp Pulse Resp BP Pulse Ox 98.2 F 89 18 154/72 96 01/17/18 12:01/17/18 12:00 01/17/18 12:00 01/17/18 12:01/17/18 12:00 - General physical appearance well developed, well nourished, moderate distress, moderate pain, chronically ill - Eyes PERRL, normal ocular movement. negative: icteric - ENT normal pinna, normal nares, normal mucosa, no congestion, decreased hearing - Head Head exam IM: Present: atraumatic, normal inspection, normocephalic - Neck no masses, no bruits, trachea midline, no lymphadectomy, no venous distension - Cardiovascular Cardiovascular exam IM: Present: normal rate and rhythm, RRR, +S1, +S2. Absent : JVD, tachycardia - Respiratory normal expansion, normal respiratory effort, clear to percussion, clear to auscultation - Abdomen Abdomen: Present: soft, tender (mild tenderness around the port sites and INO drain; good active bowel sounds; no distention noted), bowel sounds Hernia: Present: none - Genitourinary Present: normal penis with no external lesions - Integumentary Present: no rash, no growths, no abnormal pigmentation - Neurologic Present: normal coordination, normal sensation - Musculoskeletal Present: normal gait, normal posture - Psychiatric Present: oriented to time, oriented to person, oriented to place, speech is normal, memory intact Assessment and Plan (1) Recurrent generalized abdominal pain Status: Acute (2) Constipation Status: Resolved Qualifiers: Constipation type: drug induced constipation Qualified Code(s): K59.03 - Drug induced constipation (3) Appendicitis Postoperative state with residual inflammation in tract of previous appendix Status: Acute (4) Chronic alcoholic pancreatitis Status: Acute (5) Diabetes mellitus Status: Chronic Comment: watches his diet most recent HbA1c was 6.8 (6) Essential hypertension Status: Chronic Comment: Home BPs are at goal, clinic BPs are elevated continue amlodipine, atenolol and spironolactone low salt diet
[2018-01-17] MEDS: NICOTINE 21 MG PATCH TOPICAL SCH (15:18)
[2018-01-17] MEDS ORDERED: FLEETS ADULT ENEMA PR PRN (15:29)
[2018-01-17] MEDS: MAGNESIUM HYDROXIDE 30 ML ORAL.SUSP PO SCH ×2 (15:57→19:50)
[2018-01-17] MEDS: METHYLNALTREXONE BROMIDE 12 MG/0.6 ML SYRINGE SQ SCH (15:57)
[2018-01-17] MEDS: METOCLOPRAMIDE 10 MG/2 ML VIAL IV SCH (18:18)
[2018-01-18] MEDS: PIPERACILLIN SODIUM/TAZOBACTAM 3.375 GM in DEXTROSE 5% IN WATER 50 ML IV SCH ×5 (00:10→23:45)
[2018-01-18] MEDS: MAGNESIUM HYDROXIDE 30 ML ORAL.SUSP PO SCH (00:12)
[2018-01-18] MEDS: METOCLOPRAMIDE 10 MG/2 ML VIAL IV SCH ×5 (00:12→23:45)
[2018-01-18] MEDS: metroNIDAZOLE 500 MG/100 ML BAG IV SCH ×4 (00:54→17:27)
[2018-01-18] MEDS: LACTATED RINGERS 1,000 ML IV SCH ×4 (04:51→22:46)
[2018-01-18 07:40] LABS: Basophils # (Auto) 0 K/mcL (0.0-0.3); Basophils % (Auto) 0.1 % (0.0-2.0); Eosinophils # (Auto) 0.1 K/mcL (0.0-0.7); Eosinophils % (Auto) 1.1 % (0.0-7.0); Lymphocytes % (Auto) 16.1 % (15.5-49.0); Mean Corpuscular HGB Conc 33.6 g/dL (31.0-36.0); Mean Corpuscular Hemoglobin 31.5 pg (26.0-34.0); Monocytes # (Auto) 1.1 K/mcL (0.1-0.9); Monocytes % (Auto) 8.7 % (1.0-12.0); Platelet Count 544 K/mcL (140-440); RBC 3.98 M/mcL (4.50-5.90); Red Cell Distribution Width 13.3 % (11.5-14.5)
[2018-01-18 08:30] LABS: ALT/SGPT 11 U/l (0-40); Albumin 3.5 gm/dL (3.2-5.2); Alkaline Phosphatase 92 U/L (39-117); Amylase 160 U/L (28-100); Bilirubin,Direct < 0.2 mg/dL (0.0-0.3); Blood Urea Nitrogen 6 mg/dl (8-23); Gamma Glutamyl Transpeptidase 50 U/L (8-61); Lipase 1029 U/L (7-60); Uric Acid 3.1 mg/dL (2.5-8.0)
[2018-01-18] MEDS ORDERED: POTASSIUM PHOSPHATE 40 MEQ in DEXTROSE 5% IN WATER 500 ML IV ONE (09:56)
[2018-01-18] MEDS: NICOTINE 21 MG PATCH TOPICAL SCH (10:41)
[2018-01-18] MEDS: METHYLNALTREXONE BROMIDE 12 MG/0.6 ML SYRINGE SQ SCH (10:57)
[2018-01-18] MEDS: PROMETHAZINE 25 MG/ML VIAL IV PRN (12:08)
--- NOTE | 2018-01-18 13:03 | General Surgery Progress Note ---
Subjective Patient reports: feels better, pain is less, tolerating liquids well, flatus, bowel movement, afebrile Narrative: Note initiated : 01/18/18 at 1:01 pm Service Date, if different from initiated Date: [] Patient: Jalen Merlos 67 y/o M admitted on 01/17/18 for abdominal pain. Chief Complaint: [Patient states that he feels better. He had at least 2 large bowel movements since last evening. He no longer has nausea or vomiting. He has tolerated his some clear liquids and wishes to advance his diet. His abdominal discomfort is improved but he still has some mid abdominal and right- sided abdominal pain. White blood count is 12.6; electrolytes normal except for low phosphorus.] Objective Temp Pulse Resp BP Pulse Ox 98.5 F 92 H 14 163/99 99 01/18/18 12:04 01/18/18 04:00 01/18/18 12:04 01/18/18 12:04 01/18/18 12:04 - Additional Data Intake & Output - Last 24 hours: Intake & Output 01/16/18 01/17/18 01/18/18 01/19/18 05:59 05:59 05:59 05:59 Intake Total 4990 / 4990 100 / 100 Output Total 2125 / 2125 600 / 600 Balance 2865 / 2865 -500 / -500 Weight 145 lb 130 lb - General physical appearance well developed, well nourished, no distress - Eyes PERRL, normal ocular movement - ENT normal pinna, normal nares, normal mucosa, no hearing loss, no congestion - Neck no masses, no bruits, trachea midline, no lymphadectomy, no venous distension - Respiratory normal expansion, normal respiratory effort, clear to auscultation - Cardiovascular Cardiovascular exam: Present: normal rate and rhythm, RRR, +S1, +S2. Absent: JVD, tachycardia - Abdomen tender (mild tenderness in right CVA region and right upper quadrant; good active bowel sounds; no abdominal distention) - Integumentary no rash, no growths, no abnormal pigmentation - Neurologic normal coordination, normal sensation - Musculoskeletal normal gait, normal posture - Psychiatric oriented to time, oriented to person, oriented to place, speech is normal, memory intact - Labs 01/18/18 06:28 01/18/18 06:28 Diabetes panel 01/18/18 Range/Units 06:28 Sodium 137 (133-145) mmol/L Potassium 3.3 (3.3-5.1) mmol/L Chloride 100 (96-108) mmol/L Carbon Dioxide 23 (22-30) mmol/L BUN 6 L (8-23) mg/dl Creatinine 0.8 (0.7-1.2) mg/dl Glucose 140 H (70-105) mg/dL Calcium 8.6 (8.6-10.4) mg/dl AST 16 (0-37) U/l ALT 11 (0-40) U/l Alkaline Phosphatase 92 (39-117) U/L Total Protein 6.9 (5.9-8.4) gm/dL Albumin 3.5 (3.2-5.2) gm/dL Triglycerides 118 (<150) mg/dl Calcium panel 01/18/18 Range/Units 06:28 Calcium 8.6 (8.6-10.4) mg/dl Phosphorus 2.4 L (2.7-4.5) mg/dL Albumin 3.5 (3.2-5.2) gm/dL Pituitary panel 01/18/18 Range/Units 06:28 Sodium 137 (133-145) mmol/L Potassium 3.3 (3.3-5.1) mmol/L Chloride 100 (96-108) mmol/L Carbon Dioxide 23 (22-30) mmol/L BUN 6 L (8-23) mg/dl Creatinine 0.8 (0.7-1.2) mg/dl Glucose 140 H (70-105) mg/dL Calcium 8.6 (8.6-10.4) mg/dl Adrenal panel 01/18/18 Range/Units 06:28 Sodium 137 (133-145) mmol/L Potassium 3.3 (3.3-5.1) mmol/L Chloride 100 (96-108) mmol/L Carbon Dioxide 23 (22-30) mmol/L BUN 6 L (8-23) mg/dl Creatinine 0.8 (0.7-1.2) mg/dl Glucose 140 H (70-105) mg/dL Calcium 8.6 (8.6-10.4) mg/dl Total Bilirubin 0.3 (0.0-1.0) mg/dL AST 16 (0-37) U/l ALT 11 (0-40) U/l Alkaline Phosphatase 92 (39-117) U/L Total Protein 6.9 (5.9-8.4) gm/dL Albumin 3.5 (3.2-5.2) gm/dL Assessment and Plan (1) Recurrent generalized abdominal pain Status: Acute Assessment and plan: Abdominal pain has improved and white blood count has decreased We'll continue present antibiotic therapy Current Visit: Yes (2) Constipation Status: Acute Assessment and plan: Significantly improved with present treatment Current Visit: No - Time Spent With Patient Total time spent is greater than 50% in coordination of care (as documented) at patient's floor/unit and/or counseling patient:
[2018-01-18] MEDS ORDERED: PROMETHAZINE 25 MG/ML VIAL IV PRN (13:36)
[2018-01-18] MEDS: MEPERIDINE 50 MG/ML INJECTION IV PRN ×3 (14:17→23:54)
[2018-01-18] MEDS: SPIRONOLACTONE 25 MG TABLET PO SCH (18:57)
[2018-01-18] MEDS: amLODIPine 10 MG TABLET PO SCH (18:57)
[2018-01-18] MEDS: ESCITALOPRAM 20 MG TABLET PO SCH (18:57)
[2018-01-18] MEDS: ATENOLOL 50 MG TABLET PO SCH (18:58)
[2018-01-18] MEDS: ATORVASTATIN 20 MG TABLET PO SCH (20:33)
[2018-01-18] MEDS: GEMFIBROZIL 600 MG TABLET PO SCH (20:33)
[2018-01-19] MEDS: metroNIDAZOLE 500 MG/100 ML BAG IV SCH ×5 (00:31→23:53)
[2018-01-19] MEDS: LACTATED RINGERS 1,000 ML IV SCH ×3 (02:59→19:55)
[2018-01-19] MEDS: MEPERIDINE 50 MG/ML INJECTION IV PRN ×5 (04:25→21:31)
[2018-01-19] MEDS: METOCLOPRAMIDE 10 MG/2 ML VIAL IV SCH ×4 (05:49→23:21)
[2018-01-19] MEDS: PIPERACILLIN SODIUM/TAZOBACTAM 3.375 GM in DEXTROSE 5% IN WATER 50 ML IV SCH ×4 (05:49→23:22)
[2018-01-19] MEDS: GEMFIBROZIL 600 MG TABLET PO SCH ×2 (06:53→18:20)
[2018-01-19 06:57] LABS: Basophils # (Auto) 0 K/mcL (0.0-0.3); Basophils % (Auto) 0.3 % (0.0-2.0); Eosinophils # (Auto) 0.3 K/mcL (0.0-0.7); Eosinophils % (Auto) 2.3 % (0.0-7.0); Granulocytes % (Auto) 72.2 % (38.0-78.0); Lymphocytes # (Auto) 1.8 K/mcL (1.5-4.8); Lymphocytes % (Auto) 16.1 % (15.5-49.0); Mean Cell Volume 94.7 fL (80.0-100.0); Mean Corpuscular HGB Conc 33.3 g/dL (31.0-36.0); Mean Corpuscular Hemoglobin 31.6 pg (26.0-34.0); Monocytes % (Auto) 9.1 % (1.0-12.0); Platelet Count 463 K/mcL (140-440); RBC 3.69 M/mcL (4.50-5.90); Red Cell Distribution Width 13.2 % (11.5-14.5)
[2018-01-19 07:59] LABS: ALT/SGPT 11 U/l (0-40); Albumin 3.2 gm/dL (3.2-5.2); Albumin/Globulin Ratio 1.1 (1.0-2.3); Alkaline Phosphatase 81 U/L (39-117); Bilirubin,Direct < 0.2 mg/dL (0.0-0.3); Blood Urea Nitrogen 3 mg/dl (8-23); Gamma Glutamyl Transpeptidase 45 U/L (8-61)
[2018-01-19] MEDS: ATENOLOL 50 MG TABLET PO SCH (08:38)
[2018-01-19] MEDS: SPIRONOLACTONE 25 MG TABLET PO SCH (08:39)
[2018-01-19] MEDS: ESCITALOPRAM 20 MG TABLET PO SCH (08:39)
[2018-01-19] MEDS: amLODIPine 10 MG TABLET PO SCH (08:39)
[2018-01-19] MEDS: METHYLNALTREXONE BROMIDE 12 MG/0.6 ML SYRINGE SQ SCH (10:17)
[2018-01-19] MEDS: NICOTINE 21 MG PATCH TOPICAL SCH (10:17)
[2018-01-19] MEDS ORDERED: POTASSIUM PHOSPHATE 40 MEQ in DEXTROSE 5% IN WATER 500 ML IV ONE (13:35)
--- NOTE | 2018-01-19 14:05 | General Surgery Progress Note ---
Subjective Patient reports: feels better, pain is less, tolerating liquids well, bowel movement, nausea, vomiting, afebrile Narrative: Note initiated : 01/19/18 at 2:04 pm Service Date, if different from initiated Date: [] Patient: Jalen Merlos 67 y/o M admitted on 01/17/18 for abdominal pain. Chief Complaint: [patient states that he feels better. He had some nausea with vomiting when he took his nutritional supplement. He otherwise has been able to keep down all of her liquids. His abdominal pain is improved. He has been afebrile. White blood count is decreased to 11.3. His phosphorus is slightly decreased.] Objective Temp Pulse Resp BP Pulse Ox 98.2 F 106 H 16 131/65 97 01/19/18 12:00 01/19/18 06:54 01/19/18 12:00 01/19/18 12:00 01/19/18 12:00 - Additional Data Intake & Output - Last 24 hours: Intake & Output 01/17/18 01/18/18 01/19/18 01/20/18 05:59 05:59 05:59 05:59 Intake Total 4990 / 4990 2420 / 2420 1150 / 1150 Output Total 2125 / 2125 1945 / 1945 240 / 240 Balance 2865 / 2865 475 / 475 910 / 910 Weight 145 lb 130 lb 131 lb 8 oz 131 lb 8 oz - General physical appearance well developed, well nourished, no distress - Eyes PERRL, normal ocular movement - ENT normal pinna, normal nares, normal mucosa, no hearing loss, no congestion - Neck no masses, no bruits, trachea midline, no lymphadectomy, no venous distension - Respiratory normal expansion, normal respiratory effort, clear to auscultation - Cardiovascular Cardiovascular exam: Present: normal rate and rhythm, RRR, +S1, +S2. Absent: JVD, tachycardia - Abdomen soft, tender (mild tenderness in right lower quadrant; good active bowel sounds ; no significant distention) - Integumentary no rash, no growths, no abnormal pigmentation - Neurologic normal coordination, normal sensation - Musculoskeletal normal gait, normal posture - Psychiatric oriented to time, oriented to person, oriented to place, speech is normal, memory intact - Labs 01/19/18 04:55 01/19/18 04:55 Diabetes panel 01/19/18 Range/Units 04:55 Sodium 134 (133-145) mmol/L Potassium 3.4 (3.3-5.1) mmol/L Chloride 99 (96-108) mmol/L Carbon Dioxide 21 L (22-30) mmol/L BUN 3 L (8-23) mg/dl Creatinine 0.6 L (0.7-1.2) mg/dl Glucose 118 H (70-105) mg/dL Calcium 8.2 L (8.6-10.4) mg/dl AST 17 (0-37) U/l ALT 11 (0-40) U/l Alkaline Phosphatase 81 (39-117) U/L Total Protein 6.2 (5.9-8.4) gm/dL Albumin 3.2 (3.2-5.2) gm/dL Triglycerides 86 (<150) mg/dl Calcium panel 01/19/18 Range/Units 04:55 Calcium 8.2 L (8.6-10.4) mg/dl Phosphorus 2.6 L (2.7-4.5) mg/dL Albumin 3.2 (3.2-5.2) gm/dL Pituitary panel 01/19/18 Range/Units 04:55 Sodium 134 (133-145) mmol/L Potassium 3.4 (3.3-5.1) mmol/L Chloride 99 (96-108) mmol/L Carbon Dioxide 21 L (22-30) mmol/L BUN 3 L (8-23) mg/dl Creatinine 0.6 L (0.7-1.2) mg/dl Glucose 118 H (70-105) mg/dL Calcium 8.2 L (8.6-10.4) mg/dl Adrenal panel 01/19/18 Range/Units 04:55 Sodium 134 (133-145) mmol/L Potassium 3.4 (3.3-5.1) mmol/L Chloride 99 (96-108) mmol/L Carbon Dioxide 21 L (22-30) mmol/L BUN 3 L (8-23) mg/dl Creatinine 0.6 L (0.7-1.2) mg/dl Glucose 118 H (70-105) mg/dL Calcium 8.2 L (8.6-10.4) mg/dl Total Bilirubin 0.3 (0.0-1.0) mg/dL AST 17 (0-37) U/l ALT 11 (0-40) U/l Alkaline Phosphatase 81 (39-117) U/L Total Protein 6.2 (5.9-8.4) gm/dL Albumin 3.2 (3.2-5.2) gm/dL Assessment and Plan (1) Recurrent generalized abdominal pain Status: Acute Assessment and plan: Abdominal pain has improved and white blood count has decreased We'll continue present antibiotic therapy Current Visit: Yes (2) Constipation Status: Resolved Assessment and plan: Significantly improved with present treatment Current Visit: No - Time Spent With Patient Total time spent is greater than 50% in coordination of care (as documented) at patient's floor/unit and/or counseling patient:
[2018-01-19] MEDS: ATORVASTATIN 20 MG TABLET PO SCH (19:55)
[2018-01-20] MEDS: MEPERIDINE 50 MG/ML INJECTION IV PRN ×5 (01:56→21:02)
[2018-01-20] MEDS: LACTATED RINGERS 1,000 ML IV SCH ×4 (02:19→14:21)
[2018-01-20] MEDS: METOCLOPRAMIDE 10 MG/2 ML VIAL IV SCH ×4 (05:31→23:27)
[2018-01-20] MEDS: metroNIDAZOLE 500 MG/100 ML BAG IV SCH ×4 (05:33→23:27)
[2018-01-20] MEDS: PIPERACILLIN SODIUM/TAZOBACTAM 3.375 GM in DEXTROSE 5% IN WATER 50 ML IV SCH ×4 (06:41→23:27)
[2018-01-20 06:45] LABS: Basophils # (Auto) 0 K/mcL (0.0-0.3); Basophils % (Auto) 0.3 % (0.0-2.0); Eosinophils # (Auto) 0.3 K/mcL (0.0-0.7); Eosinophils % (Auto) 2.1 % (0.0-7.0); Granulocytes % (Auto) 77.7 % (38.0-78.0); Lymphocytes # (Auto) 1.6 K/mcL (1.5-4.8); Lymphocytes % (Auto) 11.6 % (15.5-49.0); Mean Cell Volume 94.4 fL (80.0-100.0); Mean Corpuscular HGB Conc 33.5 g/dL (31.0-36.0); Mean Corpuscular Hemoglobin 31.6 pg (26.0-34.0); Monocytes # (Auto) 1.1 K/mcL (0.1-0.9); Monocytes % (Auto) 8.3 % (1.0-12.0); Platelet Count 450 K/mcL (140-440); RBC 3.66 M/mcL (4.50-5.90); Red Cell Distribution Width 12.9 % (11.5-14.5)
[2018-01-20 07:11] LABS: ALT/SGPT 11 U/l (0-40); Alkaline Phosphatase 80 U/L (39-117); Bilirubin,Direct < 0.2 mg/dL (0.0-0.3); Blood Urea Nitrogen 4 mg/dl (8-23); Gamma Glutamyl Transpeptidase 43 U/L (8-61); Uric Acid 1.8 mg/dL (2.5-8.0)
[2018-01-20] MEDS: GEMFIBROZIL 600 MG TABLET PO SCH ×2 (07:24→17:40)
[2018-01-20] MEDS: SPIRONOLACTONE 25 MG TABLET PO SCH (08:14)
[2018-01-20] MEDS: ESCITALOPRAM 20 MG TABLET PO SCH (08:14)
[2018-01-20] MEDS: amLODIPine 10 MG TABLET PO SCH (08:14)
[2018-01-20] MEDS: ATENOLOL 50 MG TABLET PO SCH (08:14)
[2018-01-20] MEDS: NICOTINE 21 MG PATCH TOPICAL SCH (10:24)
--- NOTE | 2018-01-20 15:03 | General Surgery Progress Note ---
Subjective Patient reports: feels better, pain is less, tolerating liquids well, flatus, bowel movement, afebrile Narrative: Note initiated : 01/20/18 at 3:02 pm Service Date, if different from initiated Date: [] Patient: Jalen Merlos 67 y/o M admitted on 01/17/18 for Abdominal Pain. Chief Complaint: [Patient continues to feel better. He has been afebrile.he denies nausea and vomiting.. He is tolerating oral feedings without difficulty. He is having regular bowel movements at this time.. INO drainage remained serous.] Objective Temp Pulse Resp BP Pulse Ox 98.0 F 66 18 109/68 95 01/20/18 11:35 01/20/18 11:35 01/20/18 11:35 01/20/18 11:35 01/20/18 11:35 - Additional Data Intake & Output - Last 24 hours: Intake & Output 01/18/18 01/19/18 01/20/18 01/21/18 05:59 05:59 05:59 05:59 Intake Total 4990 / 4990 2420 / 2420 3968.1818 / 3968.1818 1870 / 1870 Output Total 2125 / 2125 1945 / 1945 2860 / 2860 1055 / 1055 Balance 2865 / 2865 475 / 475 1108.1818 / 1108.1818 815 / 815 Weight 130 lb 131 lb 8 oz 135 lb - General physical appearance well developed, well nourished, no distress - Eyes PERRL, normal ocular movement - ENT normal pinna, normal nares, normal mucosa, no hearing loss, no congestion - Neck no masses, no bruits, trachea midline, no lymphadectomy, no venous distension - Respiratory normal expansion, normal respiratory effort, clear to percussion, clear to auscultation - Cardiovascular Cardiovascular exam: Present: normal rate and rhythm, RRR, +S1, +S2. Absent: JVD, tachycardia - Abdomen tender (mild tenderness around right lower quadrant INO drain; good active bowel sounds; no palpable mass), bowel sounds (present), surgical scars (none), masses (none) - Integumentary no rash, no growths, no abnormal pigmentation - Neurologic normal coordination, normal sensation - Musculoskeletal normal gait, normal posture - Psychiatric oriented to time, oriented to person, oriented to place, speech is normal, memory intact - Labs 01/20/18 04:43 01/20/18 04:43 Diabetes panel 01/20/18 Range/Units 04:43 Sodium 132 L (133-145) mmol/L Potassium 3.9 (3.3-5.1) mmol/L Chloride 101 (96-108) mmol/L Carbon Dioxide 20 L (22-30) mmol/L BUN 4 L (8-23) mg/dl Creatinine 0.7 (0.7-1.2) mg/dl Glucose 97 (70-105) mg/dL Calcium 8.3 L (8.6-10.4) mg/dl AST 16 (0-37) U/l ALT 11 (0-40) U/l Alkaline Phosphatase 80 (39-117) U/L Total Protein 6.1 (5.9-8.4) gm/dL Albumin 3.0 L (3.2-5.2) gm/dL Triglycerides 108 (<150) mg/dl Calcium panel 01/20/18 Range/Units 04:43 Calcium 8.3 L (8.6-10.4) mg/dl Phosphorus 2.7 (2.7-4.5) mg/dL Albumin 3.0 L (3.2-5.2) gm/dL Pituitary panel 01/20/18 Range/Units 04:43 Sodium 132 L (133-145) mmol/L Potassium 3.9 (3.3-5.1) mmol/L Chloride 101 (96-108) mmol/L Carbon Dioxide 20 L (22-30) mmol/L BUN 4 L (8-23) mg/dl Creatinine 0.7 (0.7-1.2) mg/dl Glucose 97 (70-105) mg/dL Calcium 8.3 L (8.6-10.4) mg/dl Adrenal panel 01/20/18 Range/Units 04:43 Sodium 132 L (133-145) mmol/L Potassium 3.9 (3.3-5.1) mmol/L Chloride 101 (96-108) mmol/L Carbon Dioxide 20 L (22-30) mmol/L BUN 4 L (8-23) mg/dl Creatinine 0.7 (0.7-1.2) mg/dl Glucose 97 (70-105) mg/dL Calcium 8.3 L (8.6-10.4) mg/dl Total Bilirubin 0.3 (0.0-1.0) mg/dL AST 16 (0-37) U/l ALT 11 (0-40) U/l Alkaline Phosphatase 80 (39-117) U/L Total Protein 6.1 (5.9-8.4) gm/dL Albumin 3.0 L (3.2-5.2) gm/dL Assessment and Plan (1) Recurrent generalized abdominal pain Status: Acute Assessment and plan: Abdominal pain has improved and white blood count has decreased We'll continue present antibiotic therapy Current Visit: Yes (2) Constipation Status: Resolved Assessment and plan: Significantly improved with present treatment Current Visit: No - Time Spent With Patient Total time spent is greater than 50% in coordination of care (as documented) at patient's floor/unit and/or counseling patient:
[2018-01-20] MEDS: ATORVASTATIN 20 MG TABLET PO SCH (21:01)
[2018-01-21] MEDS: METOCLOPRAMIDE 10 MG/2 ML VIAL IV SCH ×2 (05:54→11:47)
[2018-01-21] MEDS: PIPERACILLIN SODIUM/TAZOBACTAM 3.375 GM in DEXTROSE 5% IN WATER 50 ML IV SCH ×2 (05:55→11:47)
[2018-01-21] MEDS: metroNIDAZOLE 500 MG/100 ML BAG IV SCH ×2 (05:55→11:47)
[2018-01-21 06:01] LABS: Basophils # (Auto) 0 K/mcL (0.0-0.3); Basophils % (Auto) 0.3 % (0.0-2.0); Eosinophils # (Auto) 0.4 K/mcL (0.0-0.7); Eosinophils % (Auto) 3.4 % (0.0-7.0); Lymphocytes # (Auto) 1.8 K/mcL (1.5-4.8); Lymphocytes % (Auto) 13.8 % (15.5-49.0); Mean Cell Volume 94.5 fL (80.0-100.0); Mean Corpuscular HGB Conc 33.8 g/dL (31.0-36.0); Monocytes # (Auto) 1.2 K/mcL (0.1-0.9); Monocytes % (Auto) 9.5 % (1.0-12.0); Platelet Count 466 K/mcL (140-440); Red Cell Distribution Width 13.5 % (11.5-14.5)
[2018-01-21 06:11] LABS: ALT/SGPT 10 U/l (0-40); Albumin 3.1 gm/dL (3.2-5.2); Albumin/Globulin Ratio 0.9 (1.0-2.3); Alkaline Phosphatase 88 U/L (39-117); Bilirubin,Direct < 0.2 mg/dL (0.0-0.3); Blood Urea Nitrogen 4 mg/dl (8-23); Gamma Glutamyl Transpeptidase 44 U/L (8-61); Uric Acid 2.1 mg/dL (2.5-8.0)
[2018-01-21] MEDS ORDERED: IOPAMIDOL 100 ML BOTTLE IV ONE (07:51)
[2018-01-21] MEDS: GEMFIBROZIL 600 MG TABLET PO SCH (08:14)
[2018-01-21] MEDS: ATENOLOL 50 MG TABLET PO SCH (08:14)
[2018-01-21] MEDS: amLODIPine 10 MG TABLET PO SCH (08:15)
[2018-01-21] MEDS: ESCITALOPRAM 20 MG TABLET PO SCH (08:15)
[2018-01-21] MEDS: SPIRONOLACTONE 25 MG TABLET PO SCH (08:15)
[2018-01-21] MEDS: MEPERIDINE 50 MG/ML INJECTION IV PRN ×2 (08:26→15:45)
--- NOTE | 2018-01-21 08:54 | Cat Scan Report ---
CLINICAL INFORMATION: Reason for Exam:f/u of retrocecal inflammation s/p appendectomy COMPARISON: 01/17/18 TECHNIQUE: Following oral contrast and the injection of intravenous contrast the patient was scanned during the portal venous phase from the diaphragm through the symphysis pubis. Sagittal and coronal reformats were created.. Radiation exposure was diminished using dose reduction technology. FINDINGS: The liver and spleen are normal in size and homogeneous. The gallbladder is distended but the zuniga are thin and noninflamed. There are no stones within the lumen. The bile ducts are normal in caliber. There is marked dilatation the pancreatic duct. The head and measures up to 1 cm. In the body is 8 mm. There are multiple coarse calcifications in the pancreas, predominantly localized in the head and neck. There is mild edema or inflammation in the head. No pseudocyst or abscess of developed. The level of the ampulla the pancreatic duct is narrowed. The appearance of the pancreas is unchanged from 01/17/18. The adrenals are normal. There are couple small simple cysts in the left kidney. There is no evidence of renal mass, calculus or hydronephrosis in either kidney. The oral contrast passed through stomach and normal small intestine into the colon without obstruction. There are several surgical clips posterior to the cecum. Adjacent to the clips and behind the cecum there is a tubular shaped fluid-filled structure which measures 2 cm in greatest transverse dimension and approximately 4.3 cm in length. By history, the patient has had the appendix removed. Radiographically this has the appearance of an appendix. A Meckel's diverticulum is a consideration. There are some stranding of fat around this tubular shaped structure but no abscess or free fluid or free intraperitoneal air are present. This tubular shaped structure is more distended today than it was on 01/17/18. A large amount liquefied stool is present within the distended rectum. Urinary bladder prostate and seminal vesicles appear normal. No adenopathy is present. IMPRESSION: Enlarging tubular shaped structure behind the cecum. This could be an inflamed remnant of the appendix following the prior appendectomy. A Meckel's diverticulum is another consideration. This does not have the appearance of an abscess based upon is tubular contour Acute superimposed chronic pancreatitis. Increasing distention of the gallbladder Interpreted and Authenticated by: Rupert Hudson 01/21/18
[2018-01-21] MEDS: NICOTINE 21 MG PATCH TOPICAL SCH (10:41)
--- NOTE | 2018-01-21 16:08 | Discharge Summary ---
Providers - Providers Patient information: Note initiated : 01/21/18 at 4:08 pm Service Date, if different from initiated Date: [] Patient: Jalen Merlos 67 y/o M admitted on 01/17/18 for Abdominal Pain. Chief Complaint: [] Date of admission: 01/17/18 Discharge date: 01/21/18 Attending physician: Pauline Parr Hospitalization Hospital course: 67-year-old male admitted on 17 January with recurrent abdominal pain nausea vomiting and diarrhea. He was status post laparoscopic appendectomy on December 27. He had a severely inflamed appendix extending from the base of the cecum retroperitoneally up to the area of the hepatic flexure. Appendectomy was done. Final pathology revealed perforated appendix with the probability that the tip of the appendix was left in situ. The patient had a significant phlegmon in that area. A drain was placed intraoperatively but the drain was remote from the area of the tract of the appendix in the retrocecal area. He returned. The patient had a white blood count of 18,500. It was felt that there was inflammation in the residual tract and he had a devascularize tip which was part of the phlegmon. He was admitted for IV antibiotics and to control his nausea and vomiting. The patient also had significant constipation and was given laxatives with evacuation of a large volume of stool. His white count decreased to 11.6 but has remained between 11 and 13,006 admission. He has not been febrile. The patient's nausea and vomiting resolved and his pain significantly improved. Follow-up CT shows no major inflammation around the tract but the tract remains fairly prominent. It is felt that this is fluid in the tract and that with long-term oral antibiotics this should resolve. He is clinically stable at this time in this ready for discharge home. Discharge diagnosis: inflammation in residual tract of ruptured appendix Secondary discharge diagnosis: Severe constipation Chronic pancreatitis History of chronic alcoholism Diabetes mellitus Reason for admission: abdominal pain nausea vomiting and diarrhea Procedures: 9 Pertinent studies/significant findings: CT of abdomen and pelvis with IV contrast 2 Complications: None Exam Temp Pulse Resp BP Pulse Ox 98.1 F 69 16 120/64 99 01/21/18 12:00 01/21/18 12:00 01/21/18 12:00 01/21/18 12:01/21/18 12:00 - General physical appearance well developed, well nourished, moderate pain, chronically ill - Eyes PERRL, normal ocular movement - ENT normal pinna, normal nares, normal mucosa, no hearing loss, no congestion - Head Head exam IM: Present: atraumatic, normocephalic - Neck no masses, no bruits, trachea midline, no lymphadectomy, no venous distension - Cardiovascular Cardiovascular exam IM: Present: normal rate and rhythm, RRR, +S1, +S2. Absent : JVD, tachycardia - Respiratory normal expansion, normal respiratory effort, clear to percussion, clear to auscultation - Abdomen Abdomen: Present: soft, non tender, tender (mild tenderness in the right lower quadrant and in right CVA region; port sites and drain site healing uneventfully ), bowel sounds Hernia: Present: none - Genitourinary Present: normal penis with no external lesions - Integumentary Present: no rash, no growths, no abnormal pigmentation - Neurologic Present: normal coordination, normal sensation - Musculoskeletal Present: normal gait, normal posture - Psychiatric Present: oriented to time, oriented to person, oriented to place, speech is normal, memory intact Discharge Plan - Patient/Caregiver Discharge Instructions Activity: increase activity as tolerated Diet: Regular Diet Additional Instructions: Using laxatives over the next 2 days to evacuate the rest of the colon Complete the antibiotics that you have at home before you start the new antibiotics Follow up in office one week from today Prescriptions: Levofloxacin [Levaquin] 500 mg PO DAILY #7 tab RX: Promethazine [Phenergan] 25 mg PO Q4HP PRN #30 tab PRN Reason: Nausea And Vomiting - Follow up Plan Follow up with: Elizabeth Berger ARNP [Primary Care Provider] - Disposition: Home, Self-Care Prognosis: Good Rehab Potential: Good I certify that the patient requires SNF services.: No Overall status at discharge: patient is not back to baseline Pending Studies Resuscitation Status Full Code Diet GI Soft/Transitional Start [place] Jan 19 140 Amlodipine Besylate (Norvasc) 10 mg PO DAILY [facility] Last Admin: 01/21/18 08:15 Dose: 10 mg Admin: 01/20/18 08:14 Dose: 10 mg Admin: 01/19/18 08:39 Dose: 10 mg Admin: 01/18/18 18:57 Dose: Atenolol (Tenormin) 100 mg PO DAILY [facility] Last Admin: 01/21/18 08:14 Dose: 100 mg Admin: 01/20/18 08:14 Dose: 100 mg Admin: 01/19/18 08:38 Dose: 100 mg Admin: 01/18/18 18:58 Dose: Atorvastatin Calcium (Lipitor) 40 mg PO HS [facility] Last Admin: 01/20/18 21:01 Dose: 40 mg Admin: 01/19/18 19:55 Dose: 40 mg Admin: 01/18/18 20:33 Dose: 40 mg Escitalopram Oxalate (Lexapro) 20 mg PO DAILY [facility] Last Admin: 01/21/18 08:15 Dose: 20 mg Admin: 01/20/18 08:14 Dose: 20 mg Admin: 01/19/18 08:39 Dose: 20 mg Admin: 01/18/18 18:57 Dose: Gemfibrozil (Lopid) 600 mg PO BIDAC [facility] Last Admin: 01/21/18 08:14 Dose: 600 mg Admin: 01/20/18 17:40 Dose: 600 mg Admin: 01/20/18 07:24 Dose: 600 mg Admin: 01/19/18 18:20 Dose: 600 mg Admin: 01/19/18 06:53 Dose: 600 mg Admin: 01/18/18 20:33 Dose: 600 mg Metronidazole (Flagyl) 500 mg in 100 mls @ 100 mls/hr IV Q6H [facility] Last Admin: 01/21/18 11:47 Dose: 100 mls/hr Infusion: 01/21/18 06:55 Dose: 100 mls/hr Admin: 01/21/18 05:55 Dose: 100 mls/hr Infusion: 01/21/18 01:32 Dose: 0 mls/hr Admin: 01/20/18 23:27 Dose: 100 mls/hr Infusion: 01/20/18 22:38 Dose: 0 mls/hr Admin: 01/20/18 17:41 Dose: 100 mls/hr Infusion: 01/20/18 12:46 Dose: 0 mls/hr Admin: 01/20/18 11:46 Dose: 100 mls/hr Infusion: 01/20/18 06:33 Dose: 100 mls/hr Admin: 01/20/18 05:33 Dose: 100 mls/hr Infusion: 01/20/18 02:20 Dose: 0 mls/hr Admin: 01/19/18 23:53 Dose: 100 mls/hr Infusion: 01/19/18 19:58 Dose: 0 mls/hr Admin: 01/19/18 18:20 Dose: 100 mls/hr Infusion: 01/19/18 12:16 Dose: 100 mls/hr Admin: 01/19/18 11:16 Dose: 100 mls/hr Infusion: 01/19/18 07:24 Dose: 100 mls/hr Admin: 01/19/18 06:24 Dose: 100 mls/hr Infusion: 01/19/18 02:59 Dose: 0 mls/hr Admin: 01/19/18 00:31 Dose: 100 mls/hr Infusion: 01/18/18 20:37 Dose: 0 mls/hr Admin: 01/18/18 17:27 Dose: 100 mls/hr Infusion: 01/18/18 13:07 Dose: 100 mls/hr Admin: 01/18/18 12:07 Dose: 100 mls/hr Infusion: 01/18/18 07:25 Dose: 100 mls/hr Admin: 01/18/18 06:25 Dose: 100 mls/hr Infusion: 01/18/18 01:54 Dose: 100 mls/hr Admin: 01/18/18 00:54 Dose: 100 mls/hr Infusion: 01/17/18 19:18 Dose: 0 mls/hr Admin: 01/17/18 18:18 Dose: 100 mls/hr Infusion: 01/17/18 13:10 Dose: 0 mls/hr Admin: 01/17/18 12:10 Dose: 100 mls/hr Piperacillin Sod/Tazobactam (Sod 3.375 gm/ Dextrose) 50 mls @ 100 mls/hr IV Q6H [facility] Last Admin: 01/21/18 11:47 Dose: 100 mls/hr Infusion: 01/21/18 06:25 Dose: 100 mls/hr Admin: 01/21/18 05:55 Dose: 100 mls/hr Infusion: 01/21/18 01:32 Dose: 0 mls/hr Admin: 01/20/18 23:27 Dose: 100 mls/hr Infusion: 01/20/18 22:38 Dose: 0 mls/hr Admin: 01/20/18 17:41 Dose: 100 mls/hr Infusion: 01/20/18 13:41 Dose: 0 mls/hr Admin: 01/20/18 13:11 Dose: 100 mls/hr Infusion: 01/20/18 07:11 Dose: 100 mls/hr Admin: 01/20/18 06:41 Dose: 100 mls/hr Infusion: 01/19/18 23:57 Dose: 0 mls/hr Admin: 01/19/18 23:22 Dose: 100 mls/hr Infusion: 01/19/18 20:30 Dose: 0 mls/hr Admin: 01/19/18 19:50 Dose: 100 mls/hr Infusion: 01/19/18 18:49 Dose: 0 mls/hr Admin: 01/19/18 12:23 Dose: 100 mls/hr Infusion: 01/19/18 06:19 Dose: 100 mls/hr Admin: 01/19/18 05:49 Dose: 100 mls/hr Infusion: 01/19/18 00:36 Dose: 0 mls/hr Admin: 01/18/18 23:45 Dose: 100 mls/hr Infusion: 01/18/18 22:46 Dose: 0 mls/hr Admin: 01/18/18 20:33 Dose: 100 mls/hr Infusion: 01/18/18 13:54 Dose: 100 mls/hr Admin: 01/18/18 13:24 Dose: 100 mls/hr Infusion: 01/18/18 06:16 Dose: 100 mls/hr Admin: 01/18/18 05:46 Dose: 100 mls/hr Infusion: 01/18/18 00:40 Dose: 100 mls/hr Admin: 01/18/18 00:10 Dose: 100 mls/hr Infusion: 01/17/18 18:09 Dose: 0 mls/hr Admin: 01/17/18 17:39 Dose: 100 mls/hr Infusion: 01/17/18 13:43 Dose: 0 mls/hr Admin: 01/17/18 13:13 Dose: 100 mls/hr Meperidine HCl (Demerol) 50 mg IV Q4HP PRN PRN Reason: PAIN LEVEL > 6 Last Admin: 01/21/18 15:45 Dose: 50 mg Admin: 01/21/18 08:26 Dose: 50 mg Admin: 01/20/18 21:02 Dose: 50 mg Admin: 01/20/18 14:20 Dose: 50 mg Admin: 01/20/18 10:24 Dose: 50 mg Admin: 01/20/18 06:22 Dose: 50 mg Admin: 01/20/18 01:56 Dose: 50 mg Admin: 01/19/18 21:31 Dose: 50 mg Admin: 01/19/18 16:59 Dose: 50 mg Admin: 01/19/18 12:23 Dose: 50 mg Admin: 01/19/18 08:38 Dose: 50 mg Admin: 01/19/18 04:25 Dose: 50 mg Admin: 01/18/18 23:54 Dose: 50 mg Admin: 01/18/18 19:29 Dose: 50 mg Admin: 01/18/18 14:17 Dose: 50 mg Metoclopramide HCl (Reglan) 10 mg IV Q6 [facility] Last Admin: 01/21/18 11:47 Dose: 10 mg Admin: 01/21/18 05:54 Dose: 10 mg Admin: 01/20/18 23:27 Dose: 10 mg Admin: 01/20/18 17:41 Dose: 10 mg Admin: 01/20/18 11:46 Dose: 10 mg Admin: 01/20/18 05:31 Dose: 10 mg Admin: 01/19/18 23:21 Dose: 10 mg Admin: 01/19/18 18:20 Dose: 10 mg Admin: 01/19/18 12:23 Dose: 10 mg Admin: 01/19/18 05:49 Dose: 10 mg Admin: 01/18/18 23:45 Dose: 10 mg Admin: 01/18/18 18:20 Dose: 10 mg Admin: 01/18/18 12:08 Dose: 10 mg Admin: 01/18/18 05:44 Dose: 10 mg Admin: 01/18/18 00:12 Dose: 10 mg Admin: 01/17/18 18:18 Dose: 10 mg Morphine Sulfate (Morphine) 4 mg IV Q2HP PRN PRN Reason: PAIN LEVEL > 6 Last Admin: 01/21/18 10:50 Dose: 4 mg Admin: 01/21/18 06:56 Dose: 4 mg Admin: 01/21/18 04:51 Dose: 4 mg Admin: 01/20/18 23:42 Dose: 4 mg Admin: 01/20/18 18:00 Dose: 4 mg Admin: 01/20/18 15:54 Dose: 4 mg Admin: 01/20/18 12:00 Dose: 4 mg Admin: 01/20/18 03:36 Dose: 4 mg Admin: 01/19/18 19:55 Dose: 4 mg Admin: 01/19/18 11:14 Dose: 4 mg Admin: 01/18/18 10:57 Dose: 4 mg Admin: 01/18/18 08:16 Dose: 4 mg Admin: 01/18/18 06:00 Dose: 4 mg Admin: 01/17/18 22:04 Dose: 4 mg Admin: 01/17/18 15:57 Dose: 4 mg Nicotine (Nicoderm) 21 mg TOPICAL DAILY@1000 [facility] Last Admin: 01/21/18 10:41 Dose: 21 mg Admin: 01/20/18 10:24 Dose: 21 mg Admin: 01/19/18 10:17 Dose: 21 mg Admin: 01/18/18 10:41 Dose: 21 mg Admin: 01/17/18 15:18 Dose: 21 mg Promethazine HCl (Phenergan) 25 mg IV Q4HP PRN PRN Reason: Nausea And Vomiting Last Admin: 01/18/18 12:08 Dose: 12.5 mg Admin: 01/17/18 22:02 Dose: 12.5 mg Admin: 01/17/18 16:47 Dose: 12.5 mg Admin: 01/17/18 11:35 Dose: 12.5 mg Promethazine HCl (Phenergan) 12.5 mg IV Q4HP PRN PRN Reason: Nausea And Vomiting Last Admin: 01/19/18 10:25 Dose: 12.5 mg Spironolactone (Aldactone) 25 mg PO DAILY [facility] Last Admin: 01/21/18 08:15 Dose: 25 mg Admin: 01/20/18 08:14 Dose: 25 mg Admin: 01/19/18 08:39 Dose: 25 mg Admin: 01/18/18 18:57 Dose: Shift Summary 01/21/18 05:16 Shift Summary by Liya [email or web address]. Dressing to RLQ is CDI. Has 3 lap appy sites with gloria and tegaderm CDI. Abdominal pain moderately controlled with 50mg IV demerol Q4HP and 4mg IV morphine for breakthrough pain. Up ad kashif in room. Voids per urinal. IV to LFA is SL. Receiving flagyl, zosyn, and reglan. Pleasant and cooperative with cares. Calls appropriately. Initialized on 01/21/18 05:16 - END OF NOTE
== END 2018-01-21 17:05 | disposition home or self-care (01) | DRG 862 ==
LOC: ED 05:10 → MEDSUR 10:27
PROVIDERS: ADMIT Family Medicine Adult Medicine; ATTEND Family Medicine Adult Medicine

== ENCOUNTER 2018-03-01 00:57 | Inpatient (IN) ==
[2018-03-01] MEDS ORDERED: IOPAMIDOL 100 ML BOTTLE IV ONE (00:58)
[2018-03-01] MEDS ORDERED: ONDANSETRON 4 MG/2 ML VIAL IV ONE (01:01)
[2018-03-01] MEDS ORDERED: 0.9 % SODIUM CHLORIDE 1,000 ML IV ONE (01:01)
--- NOTE | 2018-03-01 01:03 | Emergency Department Note ---
Abdominal Pain HPI - General Chief Complaint: Abdominal Pain Stated Complaint: upper abd pain Time Seen by Provider: 03/01/18 01:01 Source: patient Mode of arrival: EMS Limitations: no limitations - History of Present Illness HPI Narrative: Patient presents with recurrent epigastric pain. Associated chronic nausea. Pain is sharp, radiates to his back. Occasional generalized pain. Nontolerant of orals, ongoing vomiting but no diarrhea. No fevers or chills. Recent CT, told he had complications related to appendectomy. - Related Data Home Medications Medication Instructions Recorded Confirmed hydrocodone 10 mg-acetaminophen 1 each PO .3-4 hours PRN 30 Days 05/06/17 325 mg tablet #300 tab Previous Rx's Medication Instructions Recorded gemfibrozil 600 mg tablet 600 mg PO BID #60 tab 12/16/17 amlodipine 10 mg tablet 10 mg PO QDAY #90 tab 02/18/18 atenolol 100 mg tablet 100 mg PO QDAY #90 tab 02/18/18 atorvastatin 40 mg tablet 40 mg PO QDAY #90 tab 02/18/18 spironolactone 25 mg tablet 25 mg PO QAM #60 tab 02/18/18 Allergies Allergy/AdvReac Type Severity Reaction Status Date / Time No Known Drug Allergies Allergy Verified 03/01/18 01:04 Review of Systems All systems ED: reviewed and negative except as stated. Abdominal Pain PMH - Past Medical History Attestation: Yes: The following information was validated with the patient. Medical history: Reports: DM (diet-controlled), hyperlipidemia, hypertension, renal disease (creatinine - 0.8 to 1.2 (2018); 1.5-1.8 (2014).), other (Chronic low back pain. Gout. Alcoholic pancreatitis. Alcoholism.). Denies: cancer, coronary artery disease, CVA, myocardial infarction, thyroid disease, TIA Psychiatric history: Reports: anxiety. Denies: depression Family history: Reports: other (Son and granddaughter with type 1 diabetes) - Social History Smoking status: Current every day smoker Alcohol use: Reports: None (Quit drinking 2008.) Drug use: Reports: none. Denies: marijuana Physical Exam Limitations: no limitations General appearance: alert, cachectic Head: atraumatic Eye: Present: normal appearance. Absent: scleral icterus ENT: normal exam, mucous membranes dry Neck: Present: normal inspection. Absent: lymphadenopathy Chest: Present: normal inspection Respiratory: Present: normal lung sounds bilaterally. Absent: respiratory distress Cardiovascular: Present: regular rate, normal rhythm Abdominal: Present: tenderness. Absent: distention, guarding, rebound Abdominal tenderness: Present: epigastrium. Absent: RUQ Extremities: Present: normal inspection Back: Present: normal inspection Neurological: Present: alert, oriented X3 Psychiatric: Present: anxious Skin: Present: warm Course - Reevaluation(s) Reevaluation #1: Patient much improved, still some persistent nausea Discussion findings on CT, patient surprised at discussion of pancreatitis Time: 02:25 Reevaluation #2: Persistent pain, changed to fentanyl Discussed with Dr. Parr, willing for observational admission, reassessment in the morning Time: 03:21 Vital Signs Temperature 98.0 F 03/01/18 00:59 Pulse Rate 98 H 03/01/18 00:59 Respiratory Rate 20 03/01/18 00:59 Blood Pressure 147/75 03/01/18 00:59 Pulse Oximetry (%) 100 03/01/18 00:59 Temperature 98.0 F 03/01/18 00:59 Pulse Rate 90 03/01/18 03:09 Respiratory Rate 16 03/01/18 03:09 Blood Pressure 165/82 03/01/18 03:09 Pulse Oximetry (%) 100 03/01/18 03:09 Abdominal Pain - Medical Records Medical records reviewed: Yes I reviewed the patient's medical records. CT abdomen February reviewed, findings of chronic pancreatitis - Lab Data Lab results reviewed: Yes I reviewed the patient's lab results. Result diagrams: 03/01/18 01:05 03/01/18 01:05 Lab Results 03/01/18 03/01/18 Range/Units 01:05 01:05 WBC 11.5 H (4.5-11.0) K/mcL RBC 3.98 L (4.50-5.90) M/mcL Hgb 12.4 L (13.5-16.5) g/dL Hct 37.3 L (41.0-55.0) % POC Hct 40.0 L (41.0-55.0) % MCV 93.8 (80.0-100.0) fL MCH 31.2 (26.0-34.0) pg MCHC 33.3 (31.0-36.0) g/dL RDW 14.3 (11.5-14.5) % Plt Count 582 H (140-440) K/mcL MPV 7.3 L (7.4-10.4) fL Gran % 77.3 (38.0-78.0) % Lymph % (Auto) 17.6 (15.5-49.0) % [place] % (Auto) 4.6 (1.0-12.0) % Eos % (Auto) 0.3 (0.0-7.0) % Baso % (Auto) 0.2 (0.0-2.0) % Gran # 8.9 H (1.8-8.0) K/mcL Lymph # (Auto) 2.0 (1.5-4.8) K/mcL [place] # (Auto) 0.5 (0.1-0.9) K/mcL Eos # (Auto) 0 (0.0-0.7) K/mcL Baso # (Auto) 0 (0.0-0.3) K/mcL POC Sodium 140 (133-145) mmol/L Sodium 141 (133-145) mmol/L POC Potassium 3.2 L (3.3-5.1) mmol/L Potassium 3.4 (3.3-5.1) mmol/L POC Chloride 94 L (96-108) mmol/L Chloride 96 (96-108) mmol/L Carbon Dioxide 32 H (22-30) mmol/L POC Total CO2 30 (22-30) mmol/L Anion Gap 13.0 (8-16) POC BUN 9 (8-23) mg/dl BUN 9 (8-23) mg/dl Creatinine 0.8 (0.7-1.2) mg/dl POC Creatinine 0.8 (0.7-1.2) mg/dl GFR Calculation 91 Glucose 154 H (70-105) mg/dL POC Glucose 159 H (70-105) mg/dL Calcium 9.6 (8.6-10.4) mg/dl POC WB Ioniz Calcium 0.94 L (1.16-1.32) mmol/L Total Bilirubin 1.3 H (0.0-1.0) mg/dL AST 262 H (0-37) U/l ALT 160 H (0-40) U/l Alkaline Phosphatase 1727 H (39-117) U/L C-Reactive Protein 6.2 H (0.0-0.8) mg/dl Total Protein 8.1 (5.9-8.4) gm/dL Albumin 3.7 (3.2-5.2) gm/dL Globulin 4.4 H (2.2-3.7) gm/dL Albumin/Globulin Ratio 0.8 L (1.0-2.3) Amylase 169 H (28-100) U/L Lipase 676 H (7-60) U/L - Radiology Data Radiology results reviewed: Yes I reviewed the patient's radiology results. Significant increase in gallbladder size with thickening and some inflammatory changes suggestive of an acute cholecystitis Additionally, findings of pancreatic head that suggests mass, unclear whether this is progressive Disposition Pt seen by [employer] COORDINATOR/PA only: No Clinical Impression: Acute epigastric pain, Acute cholecystitis, Lesion of pancreas Summary: Appears to have an acute transformation, symptoms that are change, not tolerating orals Admission to Dr. Parr, observational Disposition: Xfer As Outpt/Obs ([facility]) Condition: Fair Referrals: Elizabeth Berger ARNP [Primary Care Provider] -
[2018-03-01] MEDS: HYDROmorphone 2 MG/ML VIAL IV PRN ×9 (01:20→23:50)
[2018-03-01 01:44] LABS: Basophils # (Auto) 0 K/mcL (0.0-0.3); Basophils % (Auto) 0.2 % (0.0-2.0); Eosinophils # (Auto) 0 K/mcL (0.0-0.7); Eosinophils % (Auto) 0.3 % (0.0-7.0); Granulocytes % (Auto) 77.3 % (38.0-78.0); Lymphocytes % (Auto) 17.6 % (15.5-49.0); Mean Cell Volume 93.8 fL (80.0-100.0); Mean Corpuscular HGB Conc 33.3 g/dL (31.0-36.0); Mean Corpuscular Hemoglobin 31.2 pg (26.0-34.0); Monocytes # (Auto) 0.5 K/mcL (0.1-0.9); Monocytes % (Auto) 4.6 % (1.0-12.0); Platelet Count 582 K/mcL (140-440); RBC 3.98 M/mcL (4.50-5.90); Red Cell Distribution Width 14.3 % (11.5-14.5)
[2018-03-01 02:11] LABS: ALT/SGPT 160 U/l (0-40); Albumin 3.7 gm/dL (3.2-5.2); Albumin/Globulin Ratio 0.8 (1.0-2.3); Alkaline Phosphatase 1727 U/L (39-117); Amylase 169 U/L (28-100); Blood Urea Nitrogen 9 mg/dl (8-23); C-Reactive Protein 6.2 mg/dl (0.0-0.8); Lipase 676 U/L (7-60)
[2018-03-01] MEDS ORDERED: fentaNYL 100 MCG/2 ML VIAL IV ONE (03:10)
[2018-03-01] MEDS: 0.45 % SODIUM CHLORIDE 1,000 ML IV SCH ×3 (04:26→16:48)
[2018-03-01] MEDS: fentaNYL 100 MCG/2 ML VIAL IV PRN ×4 (04:58→10:44)
[2018-03-01] MEDS ORDERED: PROMETHAZINE 25 MG/ML VIAL IV PRN (05:26)
[2018-03-01] MEDS ORDERED: PROMETHAZINE 25 MG/ML VIAL ONE (05:34)
[2018-03-01] MEDS: ONDANSETRON 4 MG/2 ML VIAL IV PRN ×2 (08:47→15:18)
[2018-03-01] MEDS ORDERED: ACETAMINOPHEN 850 MG/85 ML BOTTLE IV ONE (12:15)
--- NOTE | 2018-03-01 13:53 | Cat Scan Report ---
CLINICAL INFORMATION: Reason for Exam:epigastric pain COMPARISON: 02/11/18 TECHNIQUE: Following injection of intravenous contrast the patient was scanned during the portal venous phase from the diaphragm through the symphysis pubis. Sagittal and coronal reformats were created.. Radiation exposure was limited using dose reduction technology. FINDINGS: Lung bases are clear. Liver is normal in size. Patient has developed dilatation of the intrahepatic bile ducts which is new since 02/11/18. In addition the gallbladder has become distended. Common hepatic duct is also dilated measures up to 1.5 cm. There is extrinsic compression of the distal common bile duct in the head of the pancreas due to a large complex mass in the second and third portions of the duodenum. This mass appears to contain both cystic and solid components and measures approximately 5 x 10 cm in size. There is a nonspecific fullness in this region on the recent CT scan. The appearance has changed dramatically. The pancreatic duct is dilated and there are multiple calcifications in the pancreas due to chronic pancreatitis. The caliber of the pancreatic duct has remained stable. There is no evidence of acute pancreatitis. The spleen and adrenals are normal. There are few scattered simple cysts left kidney. No kidney stone or hydronephrosis are present. The aorta is normal caliber there are scattered plaques along the wall. Distal to the duodenum the bowel pattern is normal. There are clips posterior to the cecum following recent appendectomy. There is no abscess or inflammation in this region. Patient has no ascites, adenopathy or free intra-abdominal air. There is severe disc space narrowing and degeneration at L5-S1. IMPRESSION: Heterogeneous mass in the second and third portions of the duodenum causing extrinsic compression of the common bile duct and dilatation of the intrahepatic ducts. The rapid growth of the mass since 02/11/18 suggests this could be a hematoma. Underlying neoplasm should be considered. This could be further evaluated by endoscopy and biopsy. Stable chronic pancreatitis Interpreted and Authenticated by: Rupert Hudson 03/01/18
[2018-03-01] MEDS: KETOROLAC 15 MG/ML VIAL IV SCH ×3 (13:57→23:50)
[2018-03-01 14:16] LABS: Lipase 1379 U/L (7-60)
[2018-03-01] MEDS: PIPERACILLIN SODIUM/TAZOBACTAM 3.375 GM in DEXTROSE 5% IN WATER 50 ML IV SCH ×3 (15:00→23:50)
--- NOTE | 2018-03-01 15:02 | General Surg History&Physical ---
History of Present Illness Patient information: Note initiated : 03/01/18 at 2:55 pm Service Date, if different from initiated Date: [] Patient: Jalen Merlos a 68 y/o M admitted on 03/01/18 for upper abd pain. Chief Complaint: [] HPI: Mr. Merlos is a 68 year old M presents to the emergency room with a one-week history of severe abdominal pain in the epigastrium and right upper quadrant radiating through to his back with nausea and vomiting. The patient has had chronic abdominal pain dating back to May 2017. He was noted to have dilation of the pancreatic duct at that time but no evidence of common bile duct dilation or pancreatic mass. His pain has intermittently increased and was significantly severe in December 2017. A MRI of the abdomen at that time showed a common bile duct of 7 mm and pancreatic duct 9 mm. He had developed chronic calcifications of the pancreas but no pancreatic mass. He has not had gallstones on ultrasound that were done during this interval. MRI did not demonstrate any gallstones. He underwent laparoscopic appendectomy in January but no findings were noted on the CT except for dilated pancreatic duct. The patient states that he was doing fine since he was seen in the office earlier this month until 1 week ago. This pain started. CT of the abdomen now shows significant dilation of the common bile duct and pancreatic duct with new findings of a complex mass in the second and third portions of the duodenum that measures 5 x 10 cm. This mass has cystic and solid components. In discussion with the radiologist Dr. Humphrey, he states that in retrospect there was a suggestion of an ill-defined mass on the CT in January but this was relatively small. There has been marked enlargement over this interval. The possibility of a rapidly enlarging neoplasm is considered however I'm not aware of the implants that were enlarged and the duodenum this rapidly unless there was bleeding into the neoplasm. Patient will need upper endoscopy to define the etiology of the mass. At the present time is major. Problem is pain control. In review of his records he has lost 10 pounds since 28 January. His family states that his by mouth intake was very good up until 1 week ago. Review of Systems - Constitutional anorexia, malaise, weakness, weight loss - EENT Nose, mouth and throat: dizziness, dry mouth - Cardiovascular no chest pain with activity, no dyspnea on exertion, no orthopnea, no pedal edema, no syncope - Respiratory no dyspnea on exertion, no wheezing, no pain on inspirtation, no chest congestion, no pain with cough - Gastrointestinal abdominal pain, bloating, cramping, dyspepsia, nausea, vomiting - Genitourinary no dysuria, no urinary frequency, no urinary hesitancy, no urinary incontinence , no urinary urgency - Musculoskeletal arthralgias, stiffness - Integumentary no pruritus, no rash - Neurological weakness, no abnormal hearing, no confusion, no dizziness - Psychiatric anxiety, depression - Endocrine no fatigue, no heat intolerance - Hematologic/Lymphatic no easy bleeding, no easy bruising, no lymphadenopathy - Allergic/Immunologic no tongue swelling, no throat swelling, no uticaria, no wheezing, no lip swelling Past History Past medical history: Chronic kidney disease Diabetes mellitus Secondary hyperparathyroidism Hypertension Past surgical history: Appendectomy Arthroscopic knee surgery Past family history: Coronary artery disease Diabetes mellitus Past social history: Every day smoker History of former drinker Denies drug use Medications and Allergies Home Medications Medication Instructions Recorded Confirmed Type hydrocodone 10 mg-acetaminophen 1 each PO .3-4 hours PRN 30 Days 05/06/17 History 325 mg tablet #300 tab gemfibrozil 600 mg tablet 600 mg PO BID #60 tab 12/16/17 03/01/18 Rx amlodipine 10 mg tablet 10 mg PO QDAY #90 tab 02/18/18 03/01/18 Rx atenolol 100 mg tablet 100 mg PO QDAY #90 tab 02/18/18 03/01/18 Rx atorvastatin 40 mg tablet 40 mg PO QDAY #90 tab 02/18/18 03/01/18 Rx spironolactone 25 mg tablet 25 mg PO QAM #60 tab 02/18/18 03/01/18 Rx Allergies Allergy/AdvReac Type Severity Reaction Status Date / Time No Known Drug Allergies Allergy Verified 03/01/18 01:04 Exam Temp Pulse Resp BP Pulse Ox 98.2 F 100 H 20 159/86 99 03/01/18 12:00 03/01/18 04:19 03/01/18 12:00 03/01/18 12:00 03/01/18 12:00 - General physical appearance severe distress, severe pain, cachectic, chronically ill - Eyes PERRL, normal ocular movement - ENT normal pinna, normal nares, normal mucosa, no hearing loss, no congestion - Head Head exam IM: Present: atraumatic, normal inspection, normocephalic - Neck no masses, no bruits, trachea midline, no lymphadectomy, no venous distension - Cardiovascular Cardiovascular exam IM: Present: normal rate and rhythm, RRR, +S1, +S2. Absent : JVD, tachycardia - Respiratory normal expansion, normal respiratory effort, clear to percussion, clear to auscultation - Abdomen Abdomen: Present: soft, tender (tenderness to palpation in epigastrium and right upper quadrant), bowel sounds Hernia: Present: none - Genitourinary Present: normal penis with no external lesions - Integumentary Present: no rash, no growths, no abnormal pigmentation - Neurologic Present: normal coordination, normal sensation - Musculoskeletal Present: normal gait, normal posture - Psychiatric Present: oriented to time, oriented to person, oriented to place, speech is normal, memory intact Assessment and Plan (1) Mass of duodenum Frequent analgesics for pain control Scheduled for EGD in the morning May potentially need ERCP and duodenal exploration which will probably be done in [place] Status: Acute (2) History of chronic pancreatitis Status: Acute (3) Chronic kidney disease, stage III (moderate) Status: Chronic (4) Essential hypertension Status: Chronic Comment: Home BPs are at goal, clinic BPs are elevated continue amlodipine, atenolol and spironolactone low salt diet
[2018-03-01] MEDS ORDERED: LORazepam 2 MG/ML VIAL IV PRN (15:17)
[2018-03-01] MEDS ORDERED: METOPROLOL TARTRATE 5 MG/5 ML VIAL IV PRN (15:18)
--- NOTE | 2018-03-01 15:36 | Ultrasound Report ---
History: Mass in the duodenum FINDINGS: There is a large complex mass in the right upper quadrant. This is probably within duodenum. It is adjacent to the head of the pancreas and medial to the gallbladder. It measures approximately 5.9 x 8.9 x 9.7 cm. Doppler shows it is hypovascular. The pancreas is heterogeneous and contains multiple calcifications due to chronic pancreatitis. The gallbladder contains a moderate amount sludge. The wall is 1.5 mm in thickness. The patient was tender while scanning over the right upper quadrant. No para cholecystic fluid collection is present. Common bile duct ranges from 10 to 11 mm in size and there is mild dilatation of the intrahepatic ducts. IMPRESSION: Large complex mass in the region of the duodenum. This could be a neoplasm, hemorrhage or combination of the two. Sludge balls in the gallbladder and dilated intra and extrahepatic bile ducts Interpreted and Authenticated by: Rupert Hudson 03/01/18
[2018-03-01] MEDS: PANTOPRAZOLE 40 MG VIAL IV SCH (16:42)
[2018-03-01] MEDS ORDERED: ACETAMINOPHEN 850 MG/85 ML BOTTLE IV PRN (18:30)
[2018-03-02] MEDS: 0.45 % SODIUM CHLORIDE 1,000 ML IV SCH ×4 (00:40→15:58)
[2018-03-02] MEDS: HYDROmorphone 2 MG/ML VIAL IV PRN ×8 (04:44→23:17)
[2018-03-02] MEDS: PIPERACILLIN SODIUM/TAZOBACTAM 3.375 GM in DEXTROSE 5% IN WATER 50 ML IV SCH (05:30)
[2018-03-02] MEDS: KETOROLAC 15 MG/ML VIAL IV SCH ×3 (05:30→17:23)
[2018-03-02] MEDS: PANTOPRAZOLE 40 MG VIAL IV SCH ×2 (06:54→17:16)
--- NOTE | 2018-03-02 08:26 | XRay Report ---
HISTORY: Reason for Exam:Verify placement of nasogastric tube FINDINGS: There is nasogastric tube with the tip in the upper fundus of the stomach. The side hole is in the distal esophagus. The stomach is decompressed. The lungs are clear. Right costophrenic sulcus is outside the field of view due to patient positioning. The heart size and pulmonary vasculature are normal. IMPRESSION: Nasogastric tube in the upper fundus of the stomach Interpreted and Authenticated by: Rupert Hudson 03/02/18
[2018-03-02] MEDS ORDERED: IPRATROPIUM/ALBUTEROL 3 ML AMPUL.NEB NEB ONE (08:44)
[2018-03-02] MEDS ORDERED: KETAMINE 100 MG/ML ML IV ONE (09:40)
[2018-03-02] MEDS ORDERED: PHENYLEPHRINE 10 MG/ML VIAL IV ONE (09:40)
[2018-03-02] MEDS ORDERED: PROPOFOL 200 MG/20 ML VIAL IV ONE (09:40)
[2018-03-02] MEDS ORDERED: MIDAZOLAM 5 MG/5 ML VIAL IV ONE (09:40)
[2018-03-02 10:11] LABS: Basophils # (Auto) 0 K/mcL (0.0-0.3); Basophils % (Auto) 0.1 % (0.0-2.0); Eosinophils # (Auto) 0 K/mcL (0.0-0.7); Eosinophils % (Auto) 0 % (0.0-7.0); Lymphocytes # (Auto) 2.6 K/mcL (1.5-4.8); Lymphocytes % (Auto) 15.3 % (15.5-49.0); Mean Cell Volume 93.9 fL (80.0-100.0); Mean Corpuscular HGB Conc 34.3 g/dL (31.0-36.0); Mean Corpuscular Hemoglobin 32.2 pg (26.0-34.0); Monocytes # (Auto) 1.5 K/mcL (0.1-0.9); Monocytes % (Auto) 8.6 % (1.0-12.0); Platelet Count 444 K/mcL (140-440); RBC 3.17 M/mcL (4.50-5.90); Red Cell Distribution Width 14.2 % (11.5-14.5)
[2018-03-02 10:36] LABS: ALT/SGPT 365 U/l (0-40); Albumin 3.1 gm/dL (3.2-5.2); Albumin/Globulin Ratio 0.9 (1.0-2.3); Alkaline Phosphatase 1712 U/L (39-117); Bilirubin,Direct 1.9 mg/dL (0.0-0.3); Blood Urea Nitrogen 16 mg/dl (8-23); Gamma Glutamyl Transpeptidase 1785 U/L (8-61); Uric Acid 5.9 mg/dL (2.5-8.0)
--- NOTE | 2018-03-02 10:45 | Brief Operative Note ---
Date of procedure: 03/02/18 Pre-op diagnosis: duodenal mass Post-op diagnosis: other (extraluminal duodenal mass) Procedure: upper endoscopy with biopsies Grafts/Implants: No Anesthesia: MAC Findings: large submucosal mass of 2nd -3rd portion of duodenum with thicked inflammed overlying mucosa but no intrinsic intraluminal mass. able to maneuver pediatric colonoscope pass the mass without difficulty Complications: none Surgeon: Pauline Parr Specimens Removed/Pathology: other (duodenal mucosal biopsies) Condition: stable Disposition: floor
[2018-03-02] MEDS ORDERED: METOPROLOL TARTRATE 5 MG/5 ML VIAL IV PRN (11:03)
[2018-03-02] MEDS ORDERED: ONDANSETRON 4 MG/2 ML VIAL IV PRN (11:03)
[2018-03-02] MEDS ORDERED: ACETAMINOPHEN 850 MG/85 ML BOTTLE IV PRN (11:03)
[2018-03-02] MEDS ORDERED: PROMETHAZINE 25 MG/ML VIAL IV PRN (11:03)
[2018-03-02] MEDS ORDERED: 0.9 % SODIUM CHLORIDE 10 ML SYRINGE IV PRN (11:22)
[2018-03-02] MEDS ORDERED: PIPERACILLIN SODIUM/TAZOBACTAM 3.375 GM in DEXTROSE 5% IN WATER 50 ML IV SCH (12:00)
[2018-03-02 13:39] LABS: ALT/SGPT 304 U/l (0-40); Albumin 2.7 gm/dL (3.2-5.2); Albumin/Globulin Ratio 0.8 (1.0-2.3); Alkaline Phosphatase 1481 U/L (39-117); Bilirubin,Direct 1.9 mg/dL (0.0-0.3); Blood Urea Nitrogen 17 mg/dl (8-23); Gamma Glutamyl Transpeptidase 1565 U/L (8-61); Uric Acid 5.7 mg/dL (2.5-8.0)
[2018-03-02] MEDS: PIPERACILLIN SODIUM/TAZOBACTAM 2.25 GM in DEXTROSE 5% IN WATER 50 ML IV SCH ×2 (17:26→23:18)
[2018-03-02] MEDS: 0.9 % SODIUM CHLORIDE 10 ML SYRINGE IV SCH (19:39)
[2018-03-02] MEDS: LORazepam 2 MG/ML VIAL IV PRN (19:39)
[2018-03-02] MEDS ORDERED: POTASSIUM PHOSPHATE 66 MEQ/15 ML VIAL IV ONE (19:59)
--- NOTE | 2018-03-02 20:28 | XRay Report ---
HISTORY: Reason for Exam:PICC PLACEMENT FINDINGS: A PICC line has been inserted through the right arm. The tip is at the boundary of the superior vena cava and right atrium. There is no pneumothorax, right-sided pleural effusion or widening of the mediastinum. There is blunting of the left costophrenic sulcus which could be atelectasis or very small pleural effusion. The heart size is normal. Nasogastric tube passes through the esophagus into the stomach. IMPRESSION: No complication following insertion of a right-sided PICC line. Interpreted and Authenticated by: Rupert Hudson 03/02/18
[2018-03-02] MEDS: POTASSIUM PHOSPHATE 40 MEQ in DEXTROSE 5% IN WATER 500 ML IV ONE ×2 (20:36→20:39)
[2018-03-02] MEDS ORDERED: POTASSIUM CHLORIDE 20 MEQ/10 ML VIAL IV ONE (21:46)
[2018-03-02] MEDS ORDERED: POTASSIUM CHLORIDE 40 MEQ in DEXTROSE 5% IN WATER 500 ML IV ONE (22:00)
[2018-03-03] MEDS: 0.45 % SODIUM CHLORIDE 1,000 ML IV SCH ×4 (00:40→21:44)
[2018-03-03] MEDS: HYDROmorphone 2 MG/ML VIAL IV PRN ×9 (01:32→19:31)
[2018-03-03] MEDS: PIPERACILLIN SODIUM/TAZOBACTAM 2.25 GM in DEXTROSE 5% IN WATER 50 ML IV SCH ×3 (05:37→17:24)
[2018-03-03 06:04] LABS: Basophils # (Auto) 0 K/mcL (0.0-0.3); Basophils % (Auto) 0.3 % (0.0-2.0); Eosinophils # (Auto) 0.1 K/mcL (0.0-0.7); Granulocytes % (Auto) 75.2 % (38.0-78.0); Lymphocytes # (Auto) 1.9 K/mcL (1.5-4.8); Lymphocytes % (Auto) 14.1 % (15.5-49.0); Mean Cell Volume 94.1 fL (80.0-100.0); Monocytes # (Auto) 1.3 K/mcL (0.1-0.9); Monocytes % (Auto) 9.4 % (1.0-12.0); Platelet Count 326 K/mcL (140-440); RBC 2.53 M/mcL (4.50-5.90); Red Cell Distribution Width 14.7 % (11.5-14.5)
[2018-03-03 06:23] LABS: ALT/SGPT 205 U/l (0-40); Alkaline Phosphatase 1189 U/L (39-117); Amylase 109 U/L (28-100); Blood Urea Nitrogen 20 mg/dl (8-23); Uric Acid 6.8 mg/dL (2.5-8.0)
[2018-03-03 06:48] LABS: Gamma Glutamyl Transpeptidase 1275 U/L (8-61)
[2018-03-03] MEDS: PANTOPRAZOLE 40 MG VIAL IV SCH ×2 (06:52→15:58)
[2018-03-03] MEDS: 0.9 % SODIUM CHLORIDE 10 ML SYRINGE IV SCH ×2 (09:02→21:45)
[2018-03-03] MEDS ORDERED: TPN PER PHARMACY IV SCH (10:15)
--- NOTE | 2018-03-03 10:43 | Operative Note ---
DATE OF OPERATION: 03/02/2018 PREOPERATIVE DIAGNOSIS: Duodenal mass with duodenal obstruction. POSTOPERATIVE DIAGNOSIS: Extraluminal duodenal mass with partial obstruction. PROCEDURE: Upper endoscopy with biopsy. SURGEON: Pauline Parr MD FINDINGS: Large submucosal mass of junction between second and third portions of the duodenum with thickened, inflamed overlying mucosa, but no intrinsic intraluminal mass. I was able to maneuver the pediatric colonoscope distal to the mass out through the fourth portion of the duodenum without difficulty. DESCRIPTION OF PROCEDURE: Under general anesthesia, the patient was turned to the left lateral decubitus position. A bite block was placed. A time-out procedure was carried out as per protocol. The upper endoscope was introduced through the bite block and into the esophagus. The nasogastric tube was left intact. The esophagus was unremarkable down to the GE junction where it was slightly tight. The scope passed without difficulty; however. There was small amount of retained food particle in the antrum. There was no major inflammation in the fundus, body or antrum of the stomach. Pylorus opened appropriately. The scope was introduced through the pylorus to the second portion of the duodenum. Distal to the scope, I could see a mass that was pushing extrinsically into the lumen along the medial wall; however, the mucosa overlying this swelling was intact though it was slightly thickened and erythematous. I could not get past the mass due to the lack of length of the scope so the upper endoscope was removed and the pediatric colonoscope was introduced. The pediatric endoscope was introduced through the retropharynx into the esophagus and into the stomach. It was then maneuvered into the duodenum through the pylorus without difficulty. The previously noted mass was again encountered and photos were taken. The mass appeared to be solid, but was compressible and I was able to maneuver the colonoscope past the mass into the third and fourth portions of the duodenum without difficulty. This portion of the duodenum was unremarkable. The scope was then pulled back until I encountered the extrinsic swelling. Four biopsies of the overlying mucosa were carried out. Again, there was no separate intraluminal component. The scope was pulled back. Air was suctioned from the stomach and the nasogastric tube was repositioned. The patient tolerated the procedure well. Upon withdrawal of the colonoscope, there was a slight mucosal tear at the GE junction, but there was no active bleeding. The patient tolerated the procedure well. He was allowed to awaken and was monitored in the unit and then taken to the floor in satisfactory condition. LCS:andrae Job ID: [id number] Doc ID: [id number] Pauline Parr M.D.
[2018-03-03] MEDS: LORazepam 2 MG/ML VIAL IV PRN (12:24)
[2018-03-03] MEDS ORDERED: [UNRECOGNIZED DRUG - REMARK] IV SCH (13:00)
--- NOTE | 2018-03-03 14:38 | General Surgery Progress Note ---
Subjective Patient reports: still having pain, afebrile Narrative: Note initiated : 03/03/18 at 2:37 pm Service Date, if different from initiated Date: [] Patient: Jalen Merlos 68 y/o M admitted on 03/02/18 for Upper Abd Pain/ Mass of Duodenum. Chief Complaint: [patient is having significant upper abdominal pain still. Present analgesics and not effective in controlling his pain. he CA 199 has returned and is 1867, which is highly compatible with pancreatic neoplasm. The patient and his family were informed of this diagnosis and he is informed that he will need to be transferred to a higher level of care for determination if he has a resectable tumor. Based on present ultrasonographic and CT findings the tumor appears to be confined to the pancreas and duodenum and should be resectable with a Whipple procedure but an endoscopic ultrasound will have to be done to definitively evaluate the potential involvement of his vasculature. Plans will be made for transfer today or tomorrow.] Objective Temp Pulse Resp BP Pulse Ox 98.6 F 97 H 16 153/83 93 03/03/18 11:41 03/03/18 07:26 03/03/18 11:41 03/03/18 11:41 03/03/18 11:41 - Additional Data Intake & Output - Last 24 hours: Intake & Output 03/01/18 03/02/18 03/03/18 03/04/18 05:59 05:59 05:59 05:59 Intake Total 4135 / 4135 3225 / 3225 1185 / 1185 Output Total 300 / 300 1125 / 1125 2800 / 2800 275 / 275 Balance -300 / -300 3010 / 3010 425 / 425 910 / 910 Weight 128 lb 125 lb 125 lb 125 lb - General physical appearance severe distress, severe pain, cachectic, chronically ill - Eyes PERRL, normal ocular movement - ENT normal pinna, normal nares, normal mucosa, no hearing loss, no congestion - Neck no masses, no bruits, trachea midline, no lymphadectomy, no venous distension - Respiratory normal expansion, normal respiratory effort, clear to percussion, clear to auscultation - Cardiovascular Cardiovascular exam: Present: normal rate and rhythm, RRR, +S1, +S2. Absent: JVD, tachycardia - Abdomen tender (tender epigastrium and right upper quadrant), bowel sounds (present), surgical scars (none), masses (none) - Integumentary no rash, no growths, no abnormal pigmentation - Neurologic normal coordination, normal sensation - Musculoskeletal normal gait, normal posture - Psychiatric oriented to time, oriented to person, oriented to place, speech is normal, memory intact - Labs 03/03/18 04:30 03/03/18 04:30 Diabetes panel 03/03/18 Range/Units 04:30 Sodium 136 (133-145) mmol/L Potassium 3.5 (3.3-5.1) mmol/L Chloride 97 (96-108) mmol/L Carbon Dioxide 28 (22-30) mmol/L BUN 20 (8-23) mg/dl Creatinine 1.4 H (0.7-1.2) mg/dl Glucose 101 (70-105) mg/dL Calcium 8.3 L (8.6-10.4) mg/dl AST 285 H (0-37) U/l ALT 205 H (0-40) U/l Alkaline Phosphatase 1189 H (39-117) U/L Total Protein 6.0 (5.9-8.4) gm/dL Albumin 3.0 L (3.2-5.2) gm/dL Triglycerides 178 H (<150) mg/dl Calcium panel 03/03/18 Range/Units 04:30 Calcium 8.3 L (8.6-10.4) mg/dl Phosphorus 3.3 (2.7-4.5) mg/dL Albumin 3.0 L (3.2-5.2) gm/dL Pituitary panel 03/03/18 Range/Units 04:30 Sodium 136 (133-145) mmol/L Potassium 3.5 (3.3-5.1) mmol/L Chloride 97 (96-108) mmol/L Carbon Dioxide 28 (22-30) mmol/L BUN 20 (8-23) mg/dl Creatinine 1.4 H (0.7-1.2) mg/dl Glucose 101 (70-105) mg/dL Calcium 8.3 L (8.6-10.4) mg/dl Adrenal panel 03/03/18 Range/Units 04:30 Sodium 136 (133-145) mmol/L Potassium 3.5 (3.3-5.1) mmol/L Chloride 97 (96-108) mmol/L Carbon Dioxide 28 (22-30) mmol/L BUN 20 (8-23) mg/dl Creatinine 1.4 H (0.7-1.2) mg/dl Glucose 101 (70-105) mg/dL Calcium 8.3 L (8.6-10.4) mg/dl Total Bilirubin 1.7 H (0.0-1.0) mg/dL AST 285 H (0-37) U/l ALT 205 H (0-40) U/l Alkaline Phosphatase 1189 H (39-117) U/L Total Protein 6.0 (5.9-8.4) gm/dL Albumin 3.0 L (3.2-5.2) gm/dL Assessment and Plan (1) Mass of duodenum Status: Acute Assessment and plan: Patient has elevated CA 199 of 1867. 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 The patient is informed of this and he is informed that he will need to be transferred to a tertiary center for endoscopic ultrasound and further evaluation to determine if his tumor is resectable. Systole lesion noted was less than 3 cm one month ago it is unlikely that it has grown but this may be part of the cystic mucinous type fluid or possibly hemorrhage that caused the rapid enlargement and pain. Presently arrangements are being made for transfer either to [place] or to [place].. Current Visit: Yes (2) History of chronic pancreatitis Status: Acute Current Visit: Yes (3) Chronic kidney disease, stage III (moderate) Status: Chronic Current Visit: No (4) Essential hypertension Problem details: Home BPs are at goal, clinic BPs are elevated continue amlodipine, atenolol and spironolactone low salt diet Status: Chronic Current Visit: No - Time Spent With Patient Total time spent is greater than 50% in coordination of care (as documented) at patient's floor/unit and/or counseling patient:
--- NOTE | 2018-03-03 16:30 | Discharge Summary ---
Providers - Providers Patient information: Note initiated : 03/03/18 at 4:24 pm Service Date, if different from initiated Date: [] Patient: Jalen Merlos 68 y/o M admitted on 03/02/18 for Upper Abd Pain/ Mass of Duodenum. Chief Complaint: [] Date of admission: 03/01/18 Discharge date: 03/03/18 Attending physician: Pauline Michele Hospitalization Hospital course: 68-year-old male who was admitted with a four-day history of severe abdominal pain with nausea and vomiting. The patient had been previously followed for acute appendicitis and chronic pancreatitis. He states that 4 days ago he developed acute onset of severe pain. The pain was in the epigastrium and right upper quadrant. This was followed by multiple episodes of nausea and vomiting. He was finally seen in the emergency room where a CT scan showed a 10 cm mass of the duodenum. Review of the CT scans and MRI previously done suggested that there was a smaller lesion about 3 cm in the duodenum on the MRI done in January. This was also present in retrospect on the early February CT scan. 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 His LFTs were mildly elevated with his bilirubin being less than 2. Patient was treated symptomatically and underwent upper endoscopy. Endoscopy revealed a large extraluminal mass that was pushing along the medial wall of the duodenum. It did not occlude the opening of the papilla. The mucosa overlying the mass was slightly erythematous but did not appear to be neoplastic. There was no definitive intraluminal mass. The mass was located between the second and third portions of the duodenum and required the use of a pediatric colonoscope to reach it. I did not have access to an enteroscope. All last evening the patient's CA 19 9 returned and was 1867.. It is felt that he has a probable malignant cystic neoplasm of the pancreas which is causing partial duodenal obstruction. The patient has been started on TPN because of his severe protein calorie malnutrition and significant weight loss over the past 3 months. He is informed that we will make plans to transfer him to a high level of care for endoscopic ultrasound to better evaluate the mass and determine the feasibility of resection. 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 Protein calorie malnutrition Chronic pancreatitis Chronic kidney disease Hypertension Diabetes mellitus Reason for admission: severe abdominal pain nausea and vomiting Procedures: Esophagogastroduodenoscopy with biopsy Pertinent studies/significant findings: CT of abdomen and pelvis with IV contrast Upper abdominal ultrasound Complications: None Exam Temp Pulse Resp BP Pulse Ox 98.6 F 97 H 16 155/66 98 03/03/18 15:24 03/03/18 07:26 03/03/18 15:24 03/03/18 15:24 03/03/18 15:24 - General physical appearance well developed, well nourished, no distress - Eyes PERRL, normal ocular movement, icteric - ENT normal pinna, normal nares, normal mucosa, no congestion, decreased hearing - Head Head exam IM: Present: atraumatic, normal inspection, normocephalic - Neck no masses, no bruits, trachea midline, no lymphadectomy, no venous distension - Cardiovascular Cardiovascular exam IM: Present: normal rate and rhythm, RRR, +S1, +S2. Absent : JVD, systolic murmur, tachycardia - Respiratory normal expansion, normal respiratory effort, clear to percussion, clear to auscultation - Abdomen Abdomen: Present: soft, tender (epigastric tenderness with mild distention in the upper abdomen; good active bowel sounds), bowel sounds Hernia: Present: none - Genitourinary Present: normal penis with no external lesions - Integumentary Present: no rash, no growths, no abnormal pigmentation - Neurologic Present: normal coordination, normal sensation - Musculoskeletal Present: normal gait, normal posture - Psychiatric Present: oriented to time, oriented to person, oriented to place, speech is normal, memory intact Discharge Plan - Patient/Caregiver Discharge Instructions Activity: increase activity as tolerated Diet: NPO Additional Instructions: Continue nasogastric decompression Discontinue TPN for transfer - Follow up Plan Follow up with: Elizabeth Berger ARNP [Primary Care Provider] - Disposition: [facility] Prognosis: Fair Rehab Potential: Fair I certify that the patient requires SNF services.: No Overall status at discharge: patient is not back to baseline Pending Studies Diet NPO Diet (NOW) Start Sat Mar 01 Breakfast Heparin Sodium (Porcine) (Heparin Flush) 2 ml IV Q12 [facility] Last Admin: 03/03/18 11:35 Dose: 2 ml Admin: 03/02/18 19:39 Dose: 2 ml Hydromorphone HCl (Dilaudid) 2 mg IV Q2HP PRN PRN Reason: PAIN LEVEL > 6 Last Admin: 03/03/18 15:57 Dose: 2 mg Acetaminophen (Ofirmev) 850 mg in 85 mls @ 200 mls/hr IV Q6HP PRN PRN Reason: Pain Last Infusion: 03/03/18 14:09 Dose: 200 mls/hr Admin: 03/03/18 13:43 Dose: 200 mls/hr Sodium Chloride (Sodium Chloride 0.45%) 1,000 mls @ 150 mls/hr IV .Q6H40M [facility] Last Admin: 03/03/18 14:31 Dose: 150 mls/hr Infusion: 03/03/18 13:37 Dose: 150 mls/hr Admin: 03/03/18 06:56 Dose: 150 mls/hr Admin: 03/03/18 00:40 Dose: Not Given Infusion: 03/02/18 22:39 Dose: 150 mls/hr Admin: 03/02/18 15:58 Dose: 150 mls/hr Infusion: 03/02/18 15:58 Dose: 150 mls/hr Admin: 03/02/18 12:14 Dose: 150 mls/hr Piperacillin Sod/Tazobactam (Sod 2.25 gm/ Dextrose) 50 mls @ 100 mls/hr IV Q6H [facility] Last Infusion: 03/03/18 12:20 Dose: 100 mls/hr Admin: 03/03/18 11:50 Dose: 100 mls/hr Infusion: 03/03/18 06:11 Dose: 0 mls/hr Admin: 03/03/18 05:37 Dose: 100 mls/hr Infusion: 03/03/18 00:40 Dose: 0 mls/hr Admin: 03/02/18 23:18 Dose: 100 mls/hr Infusion: 03/02/18 18:32 Dose: 0 mls/hr Admin: 03/02/18 17:26 Dose: 100 mls/hr Sodium Chloride 40 meq/Potassium Chloride 40 meq/Multivitamins/Minerals 10 ml/ Selenium 60 mcg/ Amino Acids 1,041.5 mls @ 35 mls/hr IV Q24H [facility] Last Admin: 03/03/18 12:34 Dose: 35 mls/hr Lorazepam (Ativan) 0.5 mg IV Q4HP PRN PRN Reason: ANXIETY/SEDATION Last Admin: 03/03/18 12:24 Dose: 0.5 mg Admin: 03/02/18 19:39 Dose: 0.5 mg Pantoprazole Sodium (Protonix) 40 mg IV BIDAC [facility] Last Admin: 03/03/18 15:58 Dose: 40 mg Admin: 03/03/18 06:52 Dose: 40 mg Admin: 03/02/18 17:16 Dose: 40 mg Sodium Chloride (Saline Flush) 10 ml IV Q12 [facility] Last Admin: 03/03/18 09:02 Dose: 10 ml Admin: 03/02/18 19:39 Dose: 10 ml Shift Summary 03/03/18 15:20 Shift Summary by Elvi Coughlin a/o x 4, able to stand at bedside with 1 to 2 person assist, Dr michele spoke to the patient and his family about his prognosis and that he will need to transfer to a higher care facility in [place] or [place] was further surgery, the search is on for the MD and hospital, his tpn was started today at 35 cc/hr , has received iv tylenol,ativan and dilaudid for pain, his dilaudid was increased to 2 mg q 2 hr prn, still receiving protonix,zosyn, h/h today 8.1/23.8 , ng tube o/p of 650 cc of reddish brown drainage noted, Initialized on 03/03/18 15:20 - END OF NOTE
[2018-03-03] MEDS ORDERED: DEXTROSE 50% 50 ML VIAL IV PRN (17:29)
[2018-03-03] MEDS ORDERED: DEXTROSE 31 GM ORAL.SUSP PO PRN (17:29)
[2018-03-03] MEDS ORDERED: INSULIN LISPRO 1 UNIT/0.01 ML UNIT SQ SCH (18:00)
--- NOTE | 2018-03-04 12:48 | Surgical Pathology Report ---
HISTOLOGY SPECIMEN MICROSCOPIC DIAGNOSIS SMALL BOWEL, DUODENAL MASS, BIOPSY: -- DUODENAL MUCOSA WITH INTACT VILLOUS ARCHITECTURE AND NO INCREASE IN INTRAEPITHELIAL LYMPHOCYTES, SEE COMMENT. -- POSITIVE FOR GASTRIC METAPLASIA (ALCIAN BLUE/PAS STAIN WITH ADEQUATE TECHNICAL CONTROL). (RLF:djf) COMMENT: The biopsies consist of duodenal mucosa with preserved architecture and gastric metaplasia. No findings consistent with mass are identified. An unsampled deeper mass lesion cannot be excluded. Clinical and endoscopic correlation are suggested. CLINICAL HISTORY Duodenal mass. GROSS DESCRIPTION Received in formalin labeled duodenal mass biopsy, are four qureshi tissue fragments 0.2 to 0.4 cm. Totally submitted - one cassette. (STS:sln) Electronically Signed by: Hailey Banks M.D.
[2018-03-04] MEDS ORDERED: FAT EMULSION 20% 250 ML IV SCH (16:00)
== END 2018-03-03 19:40 | disposition short-term general hospital (02) | DRG 374 ==
LOC: ED 00:57 → MEDSUR 00:57
PROVIDERS: ADMIT Family Medicine Adult Medicine; ATTEND Family Medicine Adult Medicine